=== PATIENT | male | born 1950 | race Caucasian/White ===

== ENCOUNTER 2021-11-12 08:22 | Emergency (ER) | payer MEDICARE, MEDICAID, SELFPAY ==
--- NOTE | 2021-11-12 08:27 | XR_ITS ---
WS: [id number] XR chest 1V portable [id number] REASON FOR EXAM: cough, body aches FINDINGS: The heart and the mediastinum are within normal limits. Calcified granulomatous changes in both hemithoraces. Compared to a previous examination of 10/08/2018 there are linear and reticular lung opacities in the medial right lower lung field. Small focus of linear atelectasis in the right costophrenic angle. Blunting of both costophrenic angles which was present on the previous examination. Moderate degenerative spondylosis in the mid and lower thoracic spine. 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 XR/XR chest 1V portable [id number] IMPRESSION: Minimal opacities in the right lower lung of unknown chronicity. Early subacute pneumonitis not excluded. Follow-up chest x-ray in several days recommended.
[2021-11-12 09:22] VITALS: BP 91/58; PULSE 108; RESP 18; TEMP 36.4; O2SAT 87; BMI 25.7
--- NOTE | 2021-11-12 09:44 | ED_ITS ---
Documented by User: ELVA Shi 11/12/21 12:09 HPI - COVID General: Chief Complaint: COVID symptoms Stated Complaint: Cough and muscle aching, not eaten in couple days Time Seen by Provider: 11/12/21 09:31 Source: patient Mode of arrival: ambulatory Limitations: no limitations Triage information: Has fever, cough or shortness of breath . No known COVID + exposure last 14 days History of Present Illness: Patient is a 71-year-old male with a history of COPD chronically on 4L O2 here for concerns of cough, shortness of breath, difficulty breathing, and body aches. He states symptoms first began approximately 3 to 4 days ago-he believes he ran a fever at that time but has been afebrile since. Patient states he has not had to increase his oxygen. He states he normally runs roughly 92% on his 4L. No known sick contacts but patient does live in an apartment complex. He states he had a few episodes of diarrhea couple of days ago but none since. No vomiting or abdominal pain. No rash. No lower extremity redness or swelling. MD complaint: has COVID symptoms Prior covid testing: no COVID 19 common symptoms: positive fever(s) (a few days ago-none since), cough, productive cough, dyspnea, fatigue, body aches and diarrhea; negative chills, headache(s), throat pain, nasal congestion, nausea or vomiting COVID 19 other sytmptoms: negative chest pain Onset (ago): day(s) Severity: moderate Pertinent comorbid conditions: COPD/respiratory disease and on home bipap/cpap COVID Results: SARS-CoV-2 Antigen (Rapid) Negative (Negative) 11/12/21 10:55 11/12/21 SARS-CoV-2 RNA (RT-PCR) Pending 11/12/21 12:15 11/12/21 Review of Systems Const: Reports: fever(s) (a few days ago-none since), body aches, change in appetite and fatigue; Denies: chills or malaise ENMT: Denies: throat pain, odynophagia, nasal discharge or nasal congestion Card: Reports: dyspnea on exertion; Denies: chest pain, palpitations, irregular heart rhythm, edema, swelling of feet/ankles, lightheadedness, syncope or pre-syncope Resp: Reports: dyspnea, productive cough and chest congestion; Denies: wheezing or hemoptysis GI: Reports: diarrhea; Denies: abdominal pain, nausea, vomiting, hematochezia or melena Musc: Denies: neck pain, back pain, extremity pain or joint pain Skin/Breast: Denies: rash Neuro: Denies: headache(s), numbness in extremities, weakness in extremities, sensory changes or dizziness Physical Exam Const: COMMON NORMALS: no acute distress, patient oriented x3, no limitations and alert GENERAL APPEARANCE: cooperative ORIENTATION/CONSCIOUSNESS: Yes awake, Yes oriented to person, Yes oriented to place and Yes oriented to time HENMT: COMMON NORMALS: normocephalic and atraumatic HEAD & SCALP: normocephalic and atraumatic Chest: COMMONS NORMALS: normal inspection of the chest and normal palpation of entire chest wall Resp: COMMON NORMALS: normal respiratory effort and clear to auscultation bilaterally EFFORT & INSPECTION: Yes able to speak in complete sentences AUSCULTATION: clear to auscultation bilaterally OTHER: pt sats anywhere from 88-92% on his normal 4L; I increased this to 4.5L and he is currently satting at 94% Cardio: COMMON NORMALS: regular rhythm RATE: tachycardic RHYTHM: regular rhythm GI: COMMON NORMALS: Normal to inspection, nondistended, normoactive bowel sounds present, Soft to palpation, non-tender, No hepatosplenomegaly present and no masses PALPATION: Yes Soft to palpation and Yes No hepatosplenomegaly present Extremity: COMMON NORMALS: normal to inspection, capillary refill normal, no clubbing, cyanosis or edema, no calf tenderness and no pedal edema GENERAL: Yes normal exam except as noted Neuro: TOMÁS COMA SCALE: document GCS findings [place] coma scale eye opening: Spontaneous Tomás coma scale verbal response: Orientated Tomás coma scale motor response: Obey commands [place] coma scale total score: 15 COMMON NORMALS: patient oriented x3, moves all extremities, no focal motor deficits, no sensory deficits noted and gait normal SENSORIUM/ORIENTATION: Yes alert, Yes oriented to person, Yes oriented to place and Yes oriented to time Skin: COMMON NORMALS: no rashes or lesions noted GENERAL SKIN EXAM: no rashes or lesions noted Course Vital Signs: Vital signs: Vital Signs Temperature 97.9 F 11/12/21 10:31 Pulse Rate 104 H 11/12/21 12:35 Respiratory Rate 18 11/12/21 12:35 Blood Pressure 116/78 11/12/21 12:35 Pulse Oximetry 94 11/12/21 12:35 MDM - COVID Medical Decision Making Patient clinically appears in no acute distress. On re-evaluation he is satting at 96% on 3.5L O2. Patient has a minor white count at 12.2. CRP mildly elevated at 35.7. He has a normal procalcitonin. Rapid COVID negative. [facility] PCR obtained and pending. CXR does show some RLL opacities. Will go ahead and place on steroids/antibiotics. He was instructed to contact PCP BEVERLEY if his PCR COVID comes back positive as patient would qualify for treatment as he is at risk for severe progression. Patient verbalized understanding. Lab Data : 11/12/21 10:15 11/12/21 10:15 Radiology Impressions Chest X-Ray 11/12/21 08:27 IMPRESSION: Minimal opacities in the right lower lung of unknown chronicity. Early subacute pneumonitis not excluded. Follow-up chest x-ray in several days recommended. Laboratory Results WBC 12.2 10^3/uL (4.0-10.0) H 11/12/21 10:15 RBC 4.31 10^6/uL (4.1-5.3) 11/12/21 10:15 Hgb 13.4 g/dL (11.7-16.6) 11/12/21 10:15 Hct 40.3 % (42.0-52.0) L 11/12/21 10:15 MCV 93.5 fl (80-94) 11/12/21 10:15 MCH 31.1 pg (28.0-34.0) 11/12/21 10:15 MCHC 33.3 g/dL (30.0-36.0) 11/12/21 10:15 RDW 11.7 % (12.1-15.1) L 11/12/21 10:15 Plt Count 424 10^3/cmm (130-400) H 11/12/21 10:15 MPV 10.6 fL (7.4-10.4) H 11/12/21 10:15 Neut % (Auto) 78.4 % 11/12/21 10:15 Lymph % (Auto) 9.5 % 11/12/21 10:15 [place] % (Auto) 9.5 % 11/12/21 10:15 Eos % (Auto) 1.6 % 11/12/21 10:15 Baso % (Auto) 0.3 % 11/12/21 10:15 Neut # (Auto) 9.55 10^3/uL (1.8-7.7) H 11/12/21 10:15 Lymph # (Auto) 1.2 10^3/uL (0.8-4.8) 11/12/21 10:15 [place] # (Auto) 1.2 10^3/uL (0.2-0.9) H 11/12/21 10:15 Eos # (Auto) 0.2 10^3/uL (0.0-0.8) 11/12/21 10:15 Baso # (Auto) 0.0 10^3/uL (0.0-0.1) 11/12/21 10:15 Nucleated RBC % (auto) 0 % 11/12/21 10:15 Nucleated RBCs # 0.0 /100WBC 11/12/21 10:15 Sodium 133 mmol/L (136-145) L 11/12/21 10:15 Potassium 4.7 mmol/L (3.5-5.1) 11/12/21 10:15 Chloride 96 mmol/L (98-107) L 11/12/21 10:15 Carbon Dioxide 24 mmol/L (22-29) 11/12/21 10:15 Anion Gap 17.7 (5-19) 11/12/21 10:15 BUN 24 mg/dL (8-23) H 11/12/21 10:15 Creatinine 1.4 mg/dL (0.7-1.2) H 11/12/21 10:15 GFR Calculation Not Reportable 11/12/21 10:15 Glucose 97 mg/dL (65-115) 11/12/21 10:15 Calculated Osmolality 280 mOsm/kg (285-295) L 11/12/21 10:15 Lactic Acid 1.1 mmol/L (0.5-2.2) 11/12/21 10:15 Calcium 9.0 mg/dL (8.5-10.5) 11/12/21 10:15 Total Bilirubin 0.9 mg/dL (0.15-1.2) 11/12/21 10:15 AST 33 U/L (0-40) 11/12/21 10:15 ALT 34 U/L (0-41) 11/12/21 10:15 Alkaline Phosphatase 145 IU/L (40-130) H 11/12/21 10:15 C-Reactive Protein 35.7 mg/L (0.0-4.9) H 11/12/21 10:15 Total Protein 7.0 g/dL (6.6-8.7) 11/12/21 10:15 Albumin 3.8 g/dL (3.5-5.2) 11/12/21 10:15 Globulin 3.2 g/dL (1.3-4.6) 11/12/21 10:15 Procalcitonin 0.04 ng/mL (0-0.5) 11/12/21 10:15 SARS-CoV-2 Ag (Rapid) Negative (Negative) 11/12/21 10:55 SARS-CoV-2 Antigen (Rapid) Negative (Negative) 11/12/21 10:55 11/12/21 SARS-CoV-2 RNA (RT-PCR) Pending 11/12/21 12:15 11/12/21 Discharge Plan Discharge Patient Disposition: Home Clinical Impression: RLL pneumonia Qualifiers: Pneumonia type: due to unspecified organism Qualified Code(s): J18.9 - Pneumonia, unspecified organism Condition: Stable Prescriptions: New azithromycin 250 mg tablet See Rx Instructions .ROUTE .COMPLEX Qty: 6 0RF Rx Instructions: take 500 mg today (day 1), then 250 mg for 4 days (days 2-5) dexamethasone 6 mg tablet 6 mg PO DAILY Qty: 6 0RF Augmentin 875-125 mg tablet 1 tab PO Q12H 7 Days Qty: 14 0RF Discharge Orders: Discharge ED (Routine); Ordered 11/12/21 Ordered By: Dasha Virk Patient Instructions: Pneumonia (ED) Activity Restrictions/Additional Instructions: As we discussed if your send out COVID test comes back positive you need to contact primary care immediately to set up outpatient treatment for this as you would be at higher risk for severe progression of disease. You need to return to the ED immediately for worsening shortness of breath, difficulty breathing, chest pain, fevers, or any other concerns you may have. I hope you begin to feel better soon. Coding Level of Care Code ED Jacquard Loom Card Changer for Chg Fwd Exam Comprehensive Documented by User: James Mercado DO 11/12/21 15:04 HPI - COVID General: Chief Complaint: COVID symptoms Stated Complaint: Cough and muscle aching, not eaten in couple days Time Seen by Provider: 11/12/21 09:31 COVID Results: SARS-CoV-2 Antigen (Rapid) Negative (Negative) 11/12/21 10:55 11/12/21 SARS-CoV-2 RNA (RT-PCR) Pending 11/12/21 12:15 11/12/21 Physical Exam Neuro: TOMÁS COMA SCALE: document GCS findings [place] coma scale total score: 15 Course Vital Signs: Vital signs: Vital Signs Temperature 97.9 F 11/12/21 10:31 Pulse Rate 104 H 11/12/21 12:35 Respiratory Rate 18 11/12/21 12:35 Blood Pressure 116/78 11/12/21 12:35 Pulse Oximetry 94 11/12/21 12:35 MDM - COVID Medical Decision Making Patient clinically appears in no acute distress. On re-evaluation he is satting at 96% on 3.5L O2. Patient has a minor white count at 12.2. CRP mildly elevated at 35.7. He has a normal procalcitonin. Rapid COVID negative. [facility] PCR obtained and pending. CXR does show some RLL opacities. Will go ahead and place on steroids/antibiotics. He was instructed to contact PCP BEVERLEY if his PCR COVID comes back positive as patient would qualify for treatment as he is at risk for severe progression. Patient verbalized understanding. Chart reviewed and patient discussed with midlevel. Agree with assessment and plan. Medical Records I reviewed the patient's medical records. Lab Data I reviewed the patient's lab results. : 11/12/21 10:15 11/12/21 10:15 Radiology Impressions Chest X-Ray 11/12/21 08:27 IMPRESSION: Minimal opacities in the right lower lung of unknown chronicity. Early subacute pneumonitis not excluded. Follow-up chest x-ray in several days recommended. Laboratory Results WBC 12.2 10^3/uL (4.0-10.0) H 11/12/21 10:15 RBC 4.31 10^6/uL (4.1-5.3) 11/12/21 10:15 Hgb 13.4 g/dL (11.7-16.6) 11/12/21 10:15 Hct 40.3 % (42.0-52.0) L 11/12/21 10:15 MCV 93.5 fl (80-94) 11/12/21 10:15 MCH 31.1 pg (28.0-34.0) 11/12/21 10:15 MCHC 33.3 g/dL (30.0-36.0) 11/12/21 10:15 RDW 11.7 % (12.1-15.1) L 11/12/21 10:15 Plt Count 424 10^3/cmm (130-400) H 11/12/21 10:15 MPV 10.6 fL (7.4-10.4) H 11/12/21 10:15 Neut % (Auto) 78.4 % 11/12/21 10:15 Lymph % (Auto) 9.5 % 11/12/21 10:15 [place] % (Auto) 9.5 % 11/12/21 10:15 Eos % (Auto) 1.6 % 11/12/21 10:15 Baso % (Auto) 0.3 % 11/12/21 10:15 Neut # (Auto) 9.55 10^3/uL (1.8-7.7) H 11/12/21 10:15 Lymph # (Auto) 1.2 10^3/uL (0.8-4.8) 11/12/21 10:15 [place] # (Auto) 1.2 10^3/uL (0.2-0.9) H 11/12/21 10:15 Eos # (Auto) 0.2 10^3/uL (0.0-0.8) 11/12/21 10:15 Baso # (Auto) 0.0 10^3/uL (0.0-0.1) 11/12/21 10:15 Nucleated RBC % (auto) 0 % 11/12/21 10:15 Nucleated RBCs # 0.0 /100WBC 11/12/21 10:15 Sodium 133 mmol/L (136-145) L 11/12/21 10:15 Potassium 4.7 mmol/L (3.5-5.1) 11/12/21 10:15 Chloride 96 mmol/L (98-107) L 11/12/21 10:15 Carbon Dioxide 24 mmol/L (22-29) 11/12/21 10:15 Anion Gap 17.7 (5-19) 11/12/21 10:15 BUN 24 mg/dL (8-23) H 11/12/21 10:15 Creatinine 1.4 mg/dL (0.7-1.2) H 11/12/21 10:15 GFR Calculation Not Reportable 11/12/21 10:15 Glucose 97 mg/dL (65-115) 11/12/21 10:15 Calculated Osmolality 280 mOsm/kg (285-295) L 11/12/21 10:15 Lactic Acid 1.1 mmol/L (0.5-2.2) 11/12/21 10:15 Calcium 9.0 mg/dL (8.5-10.5) 11/12/21 10:15 Total Bilirubin 0.9 mg/dL (0.15-1.2) 11/12/21 10:15 AST 33 U/L (0-40) 11/12/21 10:15 ALT 34 U/L (0-41) 11/12/21 10:15 Alkaline Phosphatase 145 IU/L (40-130) H 11/12/21 10:15 C-Reactive Protein 35.7 mg/L (0.0-4.9) H 11/12/21 10:15 Total Protein 7.0 g/dL (6.6-8.7) 11/12/21 10:15 Albumin 3.8 g/dL (3.5-5.2) 11/12/21 10:15 Globulin 3.2 g/dL (1.3-4.6) 11/12/21 10:15 Procalcitonin 0.04 ng/mL (0-0.5) 11/12/21 10:15 SARS-CoV-2 Ag (Rapid) Negative (Negative) 11/12/21 10:55 SARS-CoV-2 Antigen (Rapid) Negative (Negative) 11/12/21 10:55 11/12/21 SARS-CoV-2 RNA (RT-PCR) Pending 11/12/21 12:15 11/12/21 Discharge Plan Discharge Patient Disposition: Home Clinical Impression: RLL pneumonia Qualifiers: Pneumonia type: due to unspecified organism Qualified Code(s): J18.9 - Pneumonia, unspecified organism Condition: Stable Prescriptions: New azithromycin 250 mg tablet See Rx Instructions .ROUTE .COMPLEX Qty: 6 0RF Rx Instructions: take 500 mg today (day 1), then 250 mg for 4 days (days 2-5) dexamethasone 6 mg tablet 6 mg PO DAILY Qty: 6 0RF Augmentin 875-125 mg tablet 1 tab PO Q12H 7 Days Qty: 14 0RF Discharge Orders: Discharge ED (Routine); Ordered 11/12/21 Ordered By: Dasha Virk Patient Instructions: Pneumonia (ED) Activity Restrictions/Additional Instructions: As we discussed if your send out COVID test comes back positive you need to contact primary care immediately to set up outpatient treatment for this as you would be at higher risk for severe progression of disease. You need to return to the ED immediately for worsening shortness of breath, difficulty breathing, chest pain, fevers, or any other concerns you may have. I hope you begin to f eel better soon. Coding Level of Care Code ED Jacquard Loom Card Changer for Alexa Atwood Exam Comprehensive
[2021-11-12 10:21] LABS: Basophils % 0.3 %; Eosinophils # 0.2 10^3/uL (0.0-0.8); Eosinophils % 1.6 %; Hematocrit 40.3 % (42.0-52.0); Hemoglobin 13.4 g/dL (11.7-16.6); Lymphocytes # 1.2 10^3/uL (0.8-4.8); Lymphocytes % 9.5 %; Mean Corpuscular HGB Conc 33.3 g/dL (30.0-36.0); Mean Corpuscular Hemoglobin 31.1 pg (28.0-34.0); Mean Corpuscular Volume 93.5 fl (80-94); Mean Platelet Volume 10.6 fL (7.4-10.4); Monocytes # 1.2 10^3/uL (0.2-0.9); Monocytes % 9.5 %; Neutrophils # 9.55 10^3/uL (1.8-7.7); Neutrophils % 78.4 %; Nucleated Red Blood Cells % 0 %; Platelet Count 424 10^3/cmm (130-400); Red Blood Count 4.31 10^6/uL (4.1-5.3); Red Cell Distribution Width 11.7 % (12.1-15.1); White Blood Count 12.2 10^3/uL (4.0-10.0)
[2021-11-12 10:31] VITALS: BP 104/72; PULSE 99; RESP 18; TEMP 36.6; O2SAT 91; O2SAT 95
[2021-11-12 10:54] LABS: Alanine Aminotransferase 34 U/L (0-41); Albumin Level 3.8 g/dL (3.5-5.2); Alkaline Phosphatase 145 IU/L (40-130); Anion Gap 17.7 (5-19); Aspartate Amino Transferase 33 U/L (0-40); Blood Urea Nitrogen 24 mg/dL (8-23); Carbon Dioxide 24 mmol/L (22-29); Chloride 96 mmol/L (98-107); Globulin 3.2 g/dL (1.3-4.6); Glucose 97 mg/dL (65-115); Osmolality Calculated 280 mOsm/kg (285-295); Potassium 4.7 mmol/L (3.5-5.1); Sodium 133 mmol/L (136-145); Total Bilirubin 0.9 mg/dL (0.15-1.2)
[2021-11-12 11:01] LABS: Procalcitonin 0.04 ng/mL (0-0.5)
[2021-11-12 11:06] LABS: Lactic Sepsis W/Reflex 1.1 mmol/L (0.5-2.2)
[2021-11-12 11:07] LABS: C Reactive Protein 35.7 mg/L (0.0-4.9)
[2021-11-12 11:40] LABS: SARS Covid-2 Antigen Negative (Negative)
[2021-11-12 12:35] VITALS: BP 116/78; PULSE 104; RESP 18; O2SAT 94
[2021-11-12 15:05] LABS: Adenovirus Not Detected (NOT DETECT); Chlamydia Pneumoniae Not Detected (NOT DETECT); Coronavirus 229E,HKU1,NL63,OC4 Not Detected (NOT DETECT); Human Metapneumovirus Not Detected (NOT DETECT); Human Rhinovirus/Enterovirus Not Detected (NOT DETECT); Influenza A Not Detected (NOT DETECT); Influenza A H1 Not Detected (NOT DETECT); Influenza A H1-2009 Not Detected (NOT DETECT); Influenza A H3 Not Detected (NOT DETECT); Influenza B Not Detected (NOT DETECT); Mycoplasma Pneumoniae Not Detected (NOT DETECT); Parainfluenza Virus Type 1 Not Detected (NOT DETECT); Parainfluenza Virus Type 2 Not Detected (NOT DETECT); Parainfluenza Virus Type 3 Not Detected (NOT DETECT); Parainfluenza Virus Type 4 Not Detected (NOT DETECT); Respiratory Syncytial Virus A Not Detected (NOT DETECT); Respiratory Syncytial Virus B Not Detected (NOT DETECT); SARS-COV-2 Detected (NOT DETECT)
== END 2021-11-12 12:41 | disposition home or self-care (01) ==
PROVIDERS: Emergency Provider Physician Assistant
DX: J18.9 Pneumonia, unspecified organism (principal); U07.1 COVID-19
CPT/HCPCS: 36415; 71045; 80053; 83605; 84145; 85025; 86140; 87426; 87635; 99283

== ENCOUNTER 2024-08-22 10:04 | Outpatient (CLI) | payer MEDICARE, MEDICAID, SELFPAY ==
--- NOTE | 2024-08-22 10:10 | XRR_ITS ---
PROCEDURE INFORMATION: Exam: XR Chest Exam date and time: 08/22/2024 10:31 AM Age: 74 years old Clinical indication: Condition or disease; Lung condition and disease; Copd; Complications not specified; Additional info: Leukocytosis/copd TECHNIQUE: Imaging protocol: Radiologic exam of the chest. Views: 2 views. Total images: 5 COMPARISON: CR XR chest 1V portable [id number] 11/12/2021 8:35 AM FINDINGS: Lungs: Masslike opacity in right lung apex measuring [address] recommended to further evaluate. Trace bibasilar atelectasis or scar. Pulmonary hyperinflation, suggesting COPD. Pleural spaces: Unremarkable. No pleural effusion. No pneumothorax. Heart/Mediastinum: Unremarkable. No cardiomegaly. Bones/joints: Unremarkable. XR/XR chest 2V* [id number] IMPRESSION: 1. Masslike opacity in right lung apex measuring [address] recommended to further evaluate. 2. Trace bibasilar atelectasis or scar. 3. Pulmonary hyperinflation, suggesting COPD.
== END 2024-08-22 10:05 | disposition home or self-care (01) ==
LOC: RAD 10:07
PROVIDERS: Visit Provider Nurse Practitioner Family
DX: J44.9 Chronic obstructive pulmonary disease, unspecified (principal); R91.8 Other nonspecific abnormal finding of lung field; D72.829 Elevated white blood cell count, unspecified
CPT/HCPCS: 71046

== ENCOUNTER 2025-04-26 09:32 | Inpatient (IN) | payer MEDICARE, MEDICAID, SELFPAY ==
[2025-04-26] VITALS (15 sets, daily range): BP systolic 92–138; BP diastolic 55–79; PULSE 69–140; RESP 16–98; TEMP 36.3–37.1; O2SAT 96–100; BMI 24.7; BMI 21.2
--- OUTSIDE RECORDS SUMMARY | 2025-04-26 09:44 | XMS_ITS | Encounter Summary ---
Author Organization [facility] Address [address] [place] [address] Care Team Providers Care Table Machine Operator Name Role Phone Gasper Galvez MD Primary Care Provider [phone] Encounter Details Date Type Department Care Team (Late st Contact Info) Description 12/22/2001 Outpatient Historical [facility] Gasper Galvez MD [address] [place] [address] FX FEMUR SHAFT-CLOSED (CMS/HCC) (Primary Dx); INTERTROCHANTERIC FX-CLOSE (CMS/HCC) Social History Tobacco Use Types Packs/Day Years Used Date Smoking Tobacco: Never Assessed Sex and Gender Information Value Date Recorded Sex Assigned at Not on file 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
--- OUTSIDE RECORDS SUMMARY | 2025-04-26 09:44 | XMS_ITS | Encounter Summary ---
Author Organization [facility] Address [address] [place] [address] Care Team Providers Care Dog Hair Clipper Name Role Phone Gasper Galvez MD Primary Care Provider Encounter Details Date Type Department Care Team (Latest Contact Info) Description 03/30/2002 Outpatient Historical [facility] Gasper Galvez MD [address] [place] [address] INTERTROCHANTERIC FX-CLOSE (CMS/[facility]) (Primary Dx) Social History Tobacco Use Types Packs/Day Years Used Date Smoking Tobacco: Never Assessed Sex and Gender Information Value Date Recorded Sex Assigned at Not on file 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
--- OUTSIDE RECORDS SUMMARY | 2025-04-26 09:44 | XMS_ITS | Clinical Summary ---
Author Organization [facility] Address [address] [place] [address] Care Team Providers Care Eye Technician Name Role Phone Gasper Galvez MD Primary Care Provider Allergies No known active allergies Medications omeprazole (PRILOSEC) 20 mg Capsule, Delayed Release(E.C.) 2 times daily . 5 Active multivitamin (DAILY-KYLE) tablet Take 1 Tablet by mouth daily. Active naproxen sodium (ALEVE) 220 mg Tablet Take 220 mg by mouth 1 time daily as needed for Pain, Moderate. Active timolol (TIMOPTIC) 0.5 % solution Administer 1 Drop in both eyes 2 times daily To the operative/affec fenrie eye.. 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 09/24/2015 Nuclear sclerotic cataract of right eye 09/24/20 15 Immunizations Immunization Administration Dates Next Due Influenza Seasonal Unspecified Formulation IM Family History Medical History Relation Name Comments Diabetes Mother Relation Name Status Comments Mother Social History Tobacco Use Types Packs/Day Years Used Date Smoking Tobacco: Every Day Cigarettes Smokeless Tobacco: Never Tobacco Cessation:Ready to Q uit: No Alcohol Use Standard Drinks/Week Comments No 0 (1 standard drink = 0.6 oz pur e alcohol) Sex and Gender Information Value Date Recorded Sex Assigned at Not on file Legal Sex Male 6:04 AM REGULATORY SUBMISSIONS SPECIALIST Gender Identity Not on file Sexual Orientation Not on file Last Filed Vital Signs Vital Sign Reading Time Taken Comments Blood Pressure 113/79 11/25/2017 10:03 AM REGULATORY SUBMISSIONS SPECIALIST Pulse 98 11/25/2017 10:03 AM REGULATORY SUBMISSIONS SPECIALIST Temperature 37.1 C (98.7 F) 12/11/2015 12:37 PM REGULATORY SUBMISSIONS SPECIALIST Respiratory Rate 18 12/11/2015 12:37 PM REGULATORY SUBMISSIONS SPECIALIST Oxygen Saturation 94% 12/11/2015 12:37 PM REGULATORY SUBMISSIONS SPECIALIST Inhaled Oxygen Concentration - - Weight 85.7 kg (189 lb) 11/25/2017 10:03 AM REGULATORY SUBMISSIONS SPECIALIST Height 182.9 cm (6') 11/25/2017 10:03 AM REGULATORY SUBMISSIONS SPECIALIST Body Mass Index 25.63 11/25/2017 10:03 AM REGULATORY SUBMISSIONS SPECIALIST Plan of Treatment Health Maintenance Due Date Last Done Comments DTAP/TDAP/TD VACCINES (1 - Tdap) 1967 PNEUMOCOCCAL VACCINE 50+ YEARS (1 of 2 - PCV) 04/20/19 67 ZOSTER VACCINE (1 of 2) 1998 RSV VACCINE (60+ or ) (1 - 1-dose 75+ series) 2023 INFLUENZA VACCINE (#1) 2025 08/25/2015 Medical Devices Implanted Type Area Payroll Associate Device Identifier Shelf Expiration Date Model / Serial / Lot Oil Slc 8.5ml [id number] - [id number] Implanted:Qty: 1 on 12/11/2015 by Silas Fonseca MD at [facility] Right: Eye [facility] 08/11/2017 [id number] / [id number] / [id number] Insurance MEDICARE PART A AND B [place] Advance Directives For more information, please contact: [phone] * Full Code (Latest Code Status on File) Date Activated Date Inactivated Comments 12/11/2015 10:30 AM 12/11/2015 3:07 PM * Full Code Date Activated Date Inactivated Comments 12/11/2015 10:04 AM 12/11/2015 10:30 AM * Full Code Date Activated Date Inactivated Comments 09/25/2015 10:45 AM 09/25/2015 6:28 PM Care Teams Eye Technician Relationship Specialty Start Date End Date Gasper Galvez MD [address] [place] [address] PCP - General 12/11/15
--- OUTSIDE RECORDS SUMMARY | 2025-04-26 09:44 | XMS_ITS | Encounter Summary ---
Author Organization [facility] Address [address] [place] [address] Care Team Providers Care Endless Belt Finisher Name Role Phone Gasper Galvez MD Primary Care Provider [phone] Encounter Details Date Type Department Care Team (Latest Contact Info) Description 05/25/2002 Outpatient Historical [facility] Gasper Galvez MD [address] [place] [address] INTERTROCHANTERIC FX-CLOSE (CMS/[facility]) (Primary Dx) Social History Tobacco Use Types Packs/Day Years Used Date Smoking Tobacco: Never Assessed Sex and Gender Information Value Date Recorded Sex Assigned at Not on file Legal Sex Male 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
--- OUTSIDE RECORDS SUMMARY | 2025-04-26 09:44 | XMS_ITS | Encounter Summary ---
Author Organization [facility] Address [address] [place] [address] Care Team Providers Care Threading Machine Setter Name Role Phone Gasper Galvez MD Primary Care Provider [phone] Encounter Details Date Type Department Care Team (Late st Contact Info) Description 07/05/2002 Outpatient Historical [facility] Gasper Galvez MD [address] [place] [address] MALF INT ORTHPED DEV/GRF (Primary Dx); INTERTROCHANTERIC FX-CLOSE (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) Closed fracture of intertrochanteric section of femur documented in this encounter Care Teams Threading Machine Setter Relationship Specialty Start Date End Date Gasper Galvez MD [address] [place] [address] PCP - General 12/11/15 documented as of this encounter
--- OUTSIDE RECORDS SUMMARY | 2025-04-26 09:44 | XMS_ITS | Encounter Summary ---
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
--- OUTSIDE RECORDS SUMMARY | 2025-04-26 09:44 | XMS_ITS | Encounter Summary ---
Author Organization [facility] Address [address] [place] [address] Care Team Providers Care Rigging And Controls Aircraft Mechanic Name Role Phone Gasper Galvez MD Primary Care Provider [phone] Encounter Details Date Type Department Care Team (Late st Contact Info) Description 03/02/2002 Outpatient Historical [facility] Gasper Galvez MD [address] [place] [address] FX FEMUR SHAFT-CLOSED (CMS/HCC) (Primary Dx); INTERTROCHANTERIC FX-CLOSE (CMS/HCC) Social History Tobacco Use Types Packs/Day Years Used Date Smoking Tobacco: Never Assessed Sex and Gender Information Value Date Recorded Sex Assigned at Not on file Legal Sex Male 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
--- OUTSIDE RECORDS SUMMARY | 2025-04-26 09:44 | XMS_ITS | Encounter Summary ---
Author Organization [facility] Address [address] [place] [address] Care Team Providers Care Staff Auditor Name Role Phone Gasper Galvez MD Primary Care Provider Encounter Details Date Type Department Care Team (Late st Contact Info) Description 08/30/2002 Outpatient Historical [facility] Gasper Galvez MD [address] [place] [address] JOINT PAIN-L/LEG (Primary Dx); INTERTROCHANTERIC FX-CLOSE ([facility]) Social History Tobacco Use Types Packs/Day Years Used Date Smoking Tobacco: Never Assessed Sex and Gender Information Value Date Recorded Sex Assigned at Not on file Legal Sex Male 6:04 AM MOVE COORDINATOR Gender Identity Not on file Sexual Orientation Not on file documented as of this encounter Plan of Treatment Not on file documented as of this encounter Visit Diagnoses Diagnosis Pain in joint, lower leg- Primary Closed fracture of intertrochanteric section of femur (CMS/HCC) Closed fracture of intertrochanteric section of femur documented in this encounter Care Teams Staff Auditor Relationship Specialty Start Date End Date Gasper Galvez MD [address] [place] [phone] PCP - General 12/11/15 documented as of this encounter
--- OUTSIDE RECORDS SUMMARY | 2025-04-26 09:44 | XMS_ITS | Encounter Summary ---
Author Organization [facility] Address [address] [place] [address] Care Team Providers Care Geophysical Prospecting Permit Agent Name Role Phone Gasper Galvez MD Primary Care Provider [phone] Encounter Details Date Type Department Care Team (Latest Contact Info) Description 02/02/2002 Outpatient Historical [facility] Gasper Galvez MD [address] [place] [address] INTERTROCHANTERIC FX-CLOSE (CMS/HCC) (Primary Dx); FX FEMUR SHAFT-CLOSED (CMS/HCC) Social History Tobacco Use Types Packs/Day Years Used Date Smoking Tobacco: Never Assessed Sex and Gender Information Value Date Recorded Sex Assigned at Not on file Legal Sex Male 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 Gender Identity Not on file Sexual Orientation Not on file documented as of this encounter Plan of Treatment Not on file documented as of this encounter Visit Diagnoses Diagnosis Closed fracture of intertrochanteric section of femur (CMS/HCC)- Primary Closed fracture of intertrochanteric section of femur Closed fracture of shaft of femur (CMS/HCC) Closed fracture of shaft of femur documented in this encounter Care Teams Geophysical Prospecting Permit Agent Relationship Specialty Start Date End Date Gasper Galvez MD [address] [place] [address] PCP - General 12/11/15 documented as of this encounter
--- OUTSIDE RECORDS SUMMARY | 2025-04-26 09:44 | XMS_ITS | Encounter Summary ---
Author Organization [facility] Address [address] [facility] Attn: [place] [address] Care Team Providers Care Hospice Registered Nurse Name Role Phone Gasper Galvez MD Primary Care Provider [phone] Encounter Details Date Type Department Care Team (Late st Contact Info) Description 11/27/2001 Inpatient Historical Han Rivera S, DO [address] [place] [address] Social History Tobacco Use Types Packs/Day Years Used Date Smoking Tobacco: Never Assessed Sex and Gender Information Value Date Recorded Sex Assigned at Not on file Legal Sex Male 6:04 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
--- NOTE | 2025-04-26 09:59 | ECG_ITS ---
[facility] Test Date: 2025-04-26 Pat Name: Miguel Castillo Department: Room: Gender: Male Compound Specialist: : [id number] Requested By: Cony Posadas Order Number: [id number] Dutch MD: Waldo Mendez M.D. Measurements Intervals [place] Rate: 130 P: 254 ME: 157 QRS: -77 QRSD: 122 T: 2 QT: 304 QTc: 447 Interpretive Statements ECTOPIC ATRIAL TACHYCARDIA LEFT AXIS DEVIATION [QRS AXIS < -30] RIGHT BUNDLE BRANCH BLOCK [120+ ms QRS DURATION, UPRIGHT V1, 40+ ms S IN I/aVL/V4/V5/V6] Compared to ECG 10/08/2018 11:51:41 Right bundle-branch block now present Sinus rhythm no longer present Incomplete right bundle-branch block no longer present Electronically Signed On 04-26-2025 16:44:07 CDT by Waldo Mendez M.D. [email or web address] [id number]
--- NOTE | 2025-04-26 10:00 | XR_ITS ---
WS: [id number] XR chest 1V portable [id number] REASON FOR EXAM: Weakness FINDINGS: Compared to the most previous examination of 08/22/2024, the mass in the right upper lung has increased from 2.6 to 3.8 cm in diameter. The chest is otherwise unchanged compared to the previous examination. Moderate tortuosity and ectasia of the thoracic aorta with the heart at the upper limits of normal in size. Lung hyperexpansion compatible with obstructive lung disease. No definite acute abnormality. 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 No definite acute abnormality.
--- NOTE | 2025-04-26 10:01 | ED_ITS ---
HPI - Weakness 2 General: Chief complaint: Weakness Stated complaint: weakness Time Seen by Provider: 04/26/25 09:47 History of Present Illness: 75-year-old man with a history of hypert ension, hyperlipidemia and COPD who presents emergency room by ambulance with worsening weakness. He says he has become so weak he can barely get up even using his walker he does not feel stable. He denies any fever or cough. No focal motor deficits. He is able to lift both legs off the bed without any difficulty. No facial droop. Related Data Home Medications ?Medication ?Instructions ?Recorded ?Confirmed acetaminophen 325 mg tablet 650 mg PO QID PRN Fever Or Pain 04/26/25 04/26/25 (Tylenol) amlodipine 10 mg tablet 10 mg PO DAILY 04/26/2504/11 clonidine HCl 0.1 mg tablet 0.1 mg PO DAILY 04/26/25 0 04/26/25 dorzolamide 2 % eye drops 1 drp ophthalmic (eye) BID 0 04/26/25 04/26/25 fluticasone fur. 100 mcg-umeclid 1 ea inhalation DAILY 04/26/25 04/26/25 62.5 mcg-vilant 25 mcg inhalat.powder (Trelegy Ellipta) furosemide 20 mg tablet 20 mg PO DAILY 04/26/2504/11 lisinopril 20 mg tablet 20 mg PO DAILY 04/26/2504/11 loratadine 10 mg tablet 10 mg PO DAILY PRN allergies 04/26/25 04/26/25 lovastatin 40 mg tablet 40 mg PO DAILY 04/26/2504/11 multivitamin with minerals-folic 1 tab PO DAILY 04/26/25 acid 400 mcg-lycopene 370 mcg tablet (One-A-Day Men's 50 Plus) naproxen sodium 220 mg tablet 220 mg PO Q12H PRN Pain 04/26/25 04/26/25 (Aleve) omeprazole 20 mg capsule,delayed 40 mg PO DAILY 04/26/25 release Allergies Allergy/AdvReac Type Severity Reaction Status Date / Time No Known Allergies Allergy Verified 04/26/25 09:39 Review of Systems 2 Narrative: Constitutional symptoms: Negative except as documented in HPI. Skin symptoms: Negative except as documented in HPI. Eye symptoms: Negative except as documented in HPI. ENMT symptoms: Negative except as documented in HPI. Respiratory symptoms: Negative except as documented in HPI. Cardiovascular symptoms: Negative except as documented in HPI. Gastrointestinal symptoms: Negative except as documented in HPI. Genitourinary symptoms: Negative except as documented in HPI. Musculoskeletal symptoms: Negative except as documented in HPI. Neurologic symptoms: Negative except as documented in HPI. Psychiatric symptoms: Negative except as documented in HPI. Endocrine symptoms: Negative except as documented in HPI. Physical Exam 2 Narrative: EXAM NARRATIVE: General: Alert, no acute distress. Skin: Warm, dry. Head: Normocephalic, atraumatic. Neck: Supple, trachea midline. Eye: Extraocular movements are intact. Ears, nose, mouth and throat: mucosa moist. Cardiovascular: Tachycardic, Normal peripheral perfusion. Does have some lower extremity edema Respiratory: Lungs are clear to auscultation, respirations are non-labored, breath sounds are equal, Symmetrical chest wall expansion. Gastrointestinal: Soft, Nontender, Non distended Musculoskeletal: Normal ROM, no deformity. Neurological: Alert and oriented, No focal neurological deficit observed. Psychiatric: Cooperative, appropriate mood & affect. Course 2 Vital Signs: Vital signs: Vital Signs Temperature 97.7 F 04/26/25 12:40 Pulse Rate 96 04/26/25 12:40 Respiratory Rate 24 H 04/26/25 12:40 Blood Pressure 126/77 04/26/25 12:40 Pulse Oximetry 100 04/26/25 12:40 Oxygen Delivery Me thod Nasal Cannula 04/26/25 12:34 Oxygen Flow Rate 4 04/26/25 12:34 MDM - Weakness Medical Decision Making Medical decision making: Differential diagnosis for patient presenting with generalized weakness including but not limited to and based on the above HPI, review of systems and physical exam: Sepsis. Dehydration. Renal failure. Electrolyte abnormalities. Anemia. Congestive heart failure. Hypotension. Coronary syndrome. Hepatitis. Cirrhosis. Infections such as pneumonia, urinary tract infection, Tick bourne illness, Cellulitis, Viral infections including influenza and Covid-19. Workup: labwork and lab/exam driven imaging ordered to evaluate, rule in and rule out above pathologies. EKG: Time 9:45 AM. Rate 130. Ectopic atrial tachycardia versus atrial fibrillation with rapid ventricular response, No ST-T changes, no ectopy, This was reviewed and interpreted by myself the ER physician at 9:50 AM. AB.5 with an O2 sat of 96% on 4 L nasal cannula Repeat EKG: Time 1203. Rate 105. Atrial fibrillation with rapid ventricular response, No ST-T changes, no ectopy, This was reviewed and interpreted by myself the ER physician at 12:05 Chest x-ray: Increasing size of the right upper lobe lung mass. This was reviewed and interpreted by myself the emergency room physician. I also reviewed the radiology report. CT of the head: Left inferior frontal lobe likely metastatic disease with moderate surrounding edema. This was reviewed and interpreted by myself the emergency room physician. I also reviewed the radiology report. CT of the chest abdomen pelvis with contrast: Large spiculated neoplasm in the right upper lobe. There is also a right upper thoracic intramuscular paraspinal mass. Other findings listed below. This was reviewed and interpreted by myself the emergency room physician. I also reviewed the radiology report. Lab Review: Laboratory results were reviewed and interpreted by myself the emergency room physician. Significant leukocytosis at 27,000 with a left shift. Anemia with a hemoglobin of 7.6. No renal failure. Urinalysis is negative for infection. I reviewed the patient's medical record. Reexamination: Patient had what appears to be a brief seizure. He was mildly postictal afterwards. Once he had recovered we had further discussion as we had already begun the discussion of end-of-life issues and he does want to be DNR. He is stable on his home oxygen. He says he has been on this for 7 or 8 years now. Currently with no altered mental status. He continues to not have any focal motor deficits. Assessment and plan: Lung mass Brain metastasis Tachycardia Sepsis Seizure DO NOT RESUSCITATE CODE STATUS Chronic hypoxemic respiratory failure - 2 L normal saline bolus. This along with blood puts him near full 30 mL/kg for his ideal body weight. -Broad-spectrum antibiotics were administered. Zyvox and meropenem -Sepsis quality measures. -Lactic acid with a reflex was ordered. -Blood cultures were ordered. ?IV Keppra and IV Ativan for a possible seizure. ?IV Decadron for brain edema and tumor. ?Patient stable on 3 and half to 4 L nasal cannula. This is his home oxygen ?Long talk about direction of care. He wants to be DNR for now and wants to go to a custodial -I discussed the patient with the hospitalist on-call who is admitting the patient. - Discussed findings and plan with patient. Answered any questions. - All laboratory values were reviewed and interpreted personally by myself, the ER physician - All imaging was reviewed and interpreted personally by myself, the ER physician. - Evaluation and treatment of this problem were appropriate in the emergency setting Critical Care: -I spent a total of >35 minutes of critical care time managing the patient, independent of any other practitioner. -The time involved in the performance of separately reportable procedures was not counted towards critical care time. 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 No definite acute abnormality. Chest/Abdomen/Pelvis CT 04/26/25 10:40 IMPRESSION: 1. Large spiculated neoplasm in the RIGHT upper lobe described above. 2. RIGHT upper thoracic intramuscular paraspinal mass described above. 3. RIGHT hilar and peribronchial lymphadenopathy. 4. Eccentric nodular thickening of the distal thoracic esophagus. Finding suspicious for neoplasm. This can be followed up with endoscopy. 5. No evidence of metastatic disease in the abdomen or pelvis. 6. Moderate chronic central canal stenosis L3-4 and severe L4-5 due to chronic disc osteophyte complexes facet arthropathy and ligamentum flavum hypertrophy. Head CT 04/26/25 10:40 IMPRESSION: 1. Small increased attenuation intraparenchymal lesion LEFT inferior frontal lobe most compatible with metastatic disease with moderate surrounding edema. Consider MRI without and with gadolinium enhancement in further assessment and to evaluate for additional lesions 2. Sphenoid sinusitis Notified Cony Chance MD at 04/26/2025 11:34 AM. Laboratory Results WBC 27.46 10^3/uL (3.29-11.43) H 04/26/25 09:41 RBC 3.22 10^6/uL (3.85-5.65) L 04/26/25 09:41 Hgb 7.60 g/dL (11.27-16.99) L 04/26/25 09:41 Hct 24.5 % (37-53) L 04/26/25 09:41 MCV 76.1 fl (82-101) L 04/26/25 09:41 MCH 23.6 pg (27-33) L 04/26/25 09:41 MCHC 31.0 g/dL (30-55) 04/26/25 09:41 RDW 17.7 % (12.1-15.1) H 04/26/25 09:41 Plt Count 675 10^3/cmm (157-399) H 04/26/25 09:41 MPV 9.7 fL (7.4-10.4) 04/26/25 09:41 Neut % (Auto) 90.7 % 04/26/25 09:41 Lymph % (Auto) 2.9 % 04/26/25 09:41 [place] % (Auto) 5.0 % 04/26/25 09:41 Eos % (Auto) 0.0 % 04/26/25 09:41 Baso % (Auto) 0.2 % 04/26/25 09:41 Neut # (Auto) 24.90 10^3/uL (1.8-7.7) H 04/26/25 09:41 Lymph # (Auto) 0.8 10^3/uL (0.8-4.8) 04/26/25 09:41 [place] # (Auto) 1.4 10^3/uL (0.2-0.9) H 04/26/25 09:41 Eos # (Auto) 0.0 10^3/uL (0.0-0.8) 04/26/25 09:41 Baso # (Auto) 0.1 10^3/uL (0.0-0.1) 04/26/25 09:41 Nucleated RBC % (auto) 0 % 04/26/25 09:41 Nucleated RBCs # 0.0 /100WBC 04/26/25 09:41 Specimen Type Arterial 04/26/25 10:04 Sample Site Brachial, left 04/26/25 10:04 ABG pH 7.51 (7.35-7.45) H 04/26/25 10:04 ABG pCO2 34.1 mmHg (35-45) L 04/26/25 10:04 ABG pO2 80.3 mmHg (80.0-100.0) 04/26/25 10:04 ABG HCO3 26.9 mmol/L (22-26) H 04/26/25 10:04 ABG O2 Saturation 97.3 04/26/25 10:04 ABG Base Excess 3.6 mmol/L (-2.0-2.0) H 04/26/25 10:04 Abad Test Pos 04/26/25 10:04 A-a O2 Gradient 3.4 mmHg (5-10) L 04/26/25 10:04 Hematocrit 21.6 % (42-52) L 04/26/25 10:04 Hgb O2 Saturation 96.2 % (95-100) 04/26/25 10:04 Carboxyhemoglobin 1.2 %THgb (0.4-20.1) 04/26/25 10:04 Methemoglobin < 0.0 % (0.4-1.5) L 04/26/25 10:04 Total Hemoglobin 7.1 g/dL (14-18) L 04/26/25 10:04 Sodium 132.0 mmol/L (131-143) 04/26/25 10:04 Potassium 3.6 mmol/L (3.5-5.0) 04/26/25 10:04 Glucose 124.0 mg/dL (70-115) H 04/26/25 10:04 Ionized Calcium 1.2 mmol/L (1.1-1.4) 04/26/25 10:04 O2 Delivery Device Nc 04/26/25 10:04 O2 Liters/Min 4.0 % 04/26/25 10:04 Sterile Processing Technician ID [place] 04/26/25 10:04 Sodium 135 mmol/L (136-145) L 04/26/25 09:41 Potassium 3.8 mmol/L (3.5-5.1) 04/26/25 09:41 Chloride 92 mmol/L (98-107) L 04/26/25 09:41 Carbon Dioxide 24 mmol/L (22-29) 04/26/25 09:41 Anion Gap 22.8 (5-19) H 04/26/25 09:41 BUN 13 mg/dL (8-23) 04/26/25 09:41 Creatinine 0.6 mg/dL (0.7-1.2) L 04/26/25 09:41 GFR Calculation Not Reportable 04/26/25 09:41 Glucose 106 mg/dL (65-115) 04/26/25 09:41 Calculated Osmolality 281 mOsm/kg (285-295) L 04/26/25 09:41 Lactic Acid 2.2 mmol/L (0.5-2.2) 04/26/25 09:41 Calcium 9.0 mg/dL (8.5-10.5) 04/26/25 09:41 Total Bilirubin 1.2 mg/dL (0.15-1.2) 04/26/25 09:41 AST 55 U/L (0-40) H 04/26/25 09:41 ALT 37 U/L (0-41) 04/26/25 09:41 Alkaline Phosphatase 481 U/L (40-130) H 04/26/25 09:41 Troponin T Baseline 48 ng/L (0-15) H 04/26/25 09:41 Troponin T 120 Minute 39.79 ng/L (0-15) H 04/26/25 12:02 Delta Troponin T -8.21 ABS# (0-10) L 04/26/25 12:02 C-Reactive Protein 234.8 mg/L (0.0-4.9) H 04/26/25 09:41 NT-Pro-B Natriuret Pep 886 pg/mL (0-450) H 04/26/25 09:41 Total Protein 6.9 g/dL (6.6-8.7) 04/26/25 09:41 Albumin 3.2 g/dL (3.5-5.2) L 04/26/25 09:41 Globulin 3.7 g/dL (1.3-4.6) 04/26/25 09:41 Urine Color Dark yellow (Yellow) A 04/26/25 11:04 Urine Appearance Clear (CLEAR) 04/26/25 11:04 Urine pH 6.5 (5-7) 04/26/25 11:04 Ur Specific [place] 1.016 (1.005-1.030) 04/26/25 11:04 Urine Protein Trace (Negative) A 04/26/25 11:04 Urine Glucose (UA) Negative (Normal) 04/26/25 11:04 Urine Ketones 1+ (Negative) H 04/26/25 11:04 Urine Blood Negative (Negative) 04/26/25 11:04 Urine Nitrate Negative (Negative) 04/26/25 11:04 Urine Bilirubin Negative (Negative) 04/26/25 11:04 Urine Urobilinogen >=8.0 mg/dL (Negative) H 04/26/25 11:04 Ur Leukocyte Esterase Negative (Negative) 04/26/25 11:04 Urine RBC 0-2 /hpf (0-2) 04/26/25 11:04 Urine WBC 0-5 /hpf (0-5) 04/26/25 11:04 Ur Squamous Epith Cells 0-5 /hpf (0-5) 04/26/25 11:04 Calcium Oxalate Crystal 0-4 /hpf H 04/26/25 11:04 Amorphous Sediment Not Reportable 04/26/25 11:04 Urine Bacteria None seen /hpf (NONE) 04/26/25 11:04 Hyaline Casts 3.71 /lpf 04/26/25 11:04 Blood Type A Positive 04/26/25 10:23 Rho(D) Type Rh positive 04/26/25 10:23 Antibody Screen Negative 04/26/25 10:23 Crossmatch See Detail 04/26/25 10:23 All radiology interpretation(s) finalized by discharge Discharge Plan Discharge Patient Disposition: Admitted As Inpatient Clinical Impression: Lung mass, Metastasis to brain, Sepsis, Generalized weakness, Tachycardia, DNR (do not resuscitate) discussion, Seizure, Anemia Condition: Stable Coding Level of Care Code ED Bulk Gas Specialist for Alexa Atwood
[2025-04-26 10:11] LABS: Hematocrit 24.5 % (37-53); Hemoglobin 7.60 g/dL (11.27-16.99); Mean Corpuscular HGB Conc 31.0 g/dL (30-55); Mean Corpuscular Hemoglobin 23.6 pg (27-33); Mean Corpuscular Volume 76.1 fl (82-101); Nucleated Red Blood Cells % 0 %; Platelet Count 675 10^3/cmm (157-399); Red Blood Count 3.22 10^6/uL (3.85-5.65); White Blood Count 27.46 10^3/uL (3.29-11.43)
[2025-04-26 10:15] LABS: ABG PCO2 34.1 mmHg (35-45); ABG PH Result 7.51 (7.35-7.45); Alveolar-Arterial Oxygen Gradi 3.4 mmHg (5-10); Arterial Blood Gas Hematocrit 21.6 % (42-52); Blood Gas Allen Test Pos; Blood Gas LPM 4.0 %; Blood Gas Operator Identificat WALCI; Blood Gas Sample Site Brachial, left; Blood Gas Sample Type Arterial; Carboxyhemoglobin 1.2 %THgb (0.4-20.1); Glucose Level-ABG 124.0 mg/dL (70-115); HCO3 ABG 26.9 mmol/L (22-26); Ionized Calcium Level - ABG 1.2 mmol/L (1.1-1.4); Methemoglobin < 0.0 % (0.4-1.5); Oxygen Saturation ABG 97.3; PO2 ABG 80.3 mmHg (80.0-100.0); Potassium Level - ABG 3.6 mmol/L (3.5-5.0); Sodium Level - ABG 132.0 mmol/L (131-143)
[2025-04-26 10:22] LABS: Lactic Sepsis W/Reflex 2.2 mmol/L (0.5-2.2)
[2025-04-26 10:23] LABS: Troponin(5th) Baseline 48 ng/L (0-15)
[2025-04-26 10:31] LABS: Alanine Aminotransferase 37 U/L (0-41); Albumin Level 3.2 g/dL (3.5-5.2); Alkaline Phosphatase 481 U/L (40-130); Anion Gap 22.8 (5-19); Aspartate Amino Transferase 55 U/L (0-40); Blood Urea Nitrogen 13 mg/dL (8-23); Calcium 9.0 mg/dL (8.5-10.5); Carbon Dioxide 24 mmol/L (22-29); Chloride 92 mmol/L (98-107); Creatinine Clr Calc Pharmacy 87.0424; Globulin 3.7 g/dL (1.3-4.6); Glucose 106 mg/dL (65-115); NT Pro B Type Natriuretic Pept 886 pg/mL (0-450); Osmolality Calculated 281 mOsm/kg (285-295); Potassium 3.8 mmol/L (3.5-5.1); Sodium 135 mmol/L (136-145); Total Protein 6.9 g/dL (6.6-8.7)
--- NOTE | 2025-04-26 10:40 | CT_ITS ---
WS: [id number] CT CHEST, ABDOMEN, AND PELVIS TECHNIQUE: Contrast-enhanced CT of the chest, abdomen, and pelvis with coronal and sagittal reformatted images. CLINICAL INFORMATION: sepsis COMPARISON: None. DLP: 807.[address] scans at [facility] use at least one of these dose optimization techniques: automated exposure control; mA and/or kV adjustment per patient size (includes targeted exams where dose is matched to clinical indication); or iterative reconstruction. CT CHEST: Large spiculated neoplasm in the RIGHT upper lobe corresponding to the chest radiograph findings. This measures approximately 5.1 x 3.5 x 5.5 cm AP by transverse by craniocaudal. Enlarged enhancing RIGHT hilar and peribronchial lymph nodes suspicious for metastatic disease. Largest lymph node measures 2.5 cm. Pleural-based nodule RIGHT upper lobe posterior medially measuring 10 mm suspicious for local metastatic disease Enhancing RIGHT paraspinal lesion in the upper RIGHT thoracic paraspinal musculature measuring approximately 3.2 x 3.6 x 5.1 cm suspicious for metastatic disease. This abuts the transverse processes in the upper thoracic spine at T3 and T4. This also abuts several posterior ribs. Normal caliber thoracic aorta. Aortic calcification. Proximal main pulmonary arteries are normal. No axillary lymphadenopathy. Small esophageal hiatal hernia. Eccentric thickening of the distal thoracic esophagus suspicious for neoplasm. This can be followed up with endoscopy. Thoracic kyphosis. Tiny pericardial effusion. Interstitial thickening in the lung bases likely inflammatory. Bibasilar atelectasis. CT ABDOMEN AND PELVIS: Hepatomegaly. Fatty liver. Normal spleen. Small esophageal hiatal hernia. Splenic artery calcification. Normal pancreatic parenchymal enhancement. Adrenal glands are normal. Normal renal parenchymal enhancement. No hydronephrosis. Normal caliber abdominal aorta. Aortic calcification. Tiny fat-containing umbilical hernia. Rectal distention with constipation. Mild prostate enlargement. No evidence of high-grade small or large bowel obstruction. Normal appendix. No visualized lymphadenopathy in the abdomen or pelvis. Advanced spondylitic changes lumbar spine. Multilevel spinal canal stenosis in the lumbar spine due to chronic disc osteophyte complexes. Moderate central canal stenosis L3-4 and severe L4-5. CT/CT chest abdpel w/*[id number] IMPRESSION: 1. Large spiculated neoplasm in the RIGHT upper lobe described above. 2. RIGHT upper thoracic intramuscular paraspinal mass described above. 3. RIGHT hilar and peribronchial lymphadenopathy. 4. Eccentric nodular thickening of the distal thoracic esophagus. Finding susp icious for neoplasm. This can be followed up with endoscopy. 5. No evidence of metastatic disease in the abdomen or pelvis. 6. Moderate chronic central canal stenosis L3-4 and severe L4-5 due to chronic disc osteophyte complexes facet arthropathy and ligamentum flavum hypertrophy.
--- NOTE | 2025-04-26 10:40 | CT_ITS ---
WS: [id number] CT HEAD TECHNIQUE: Noncontrast CT of the head obtained from the skullbase to the vertex. CLINICAL INFORMATION: weakness COMPARISON: None. DLP: 1069.[address] scans at [facility] use at least one of these dose optimization techniques: automated exposure control; mA and/or kV adjustment per patient size (includes targeted exams where dose is matched to clinical indication); or iterative reconstruction. FINDINGS: Increased attenuation lesion in the LEFT inferior frontal lobe measuring 6 mm with moderate surrounding edema suspicious for metastatic disease this could be followed up with MRI without and with gadolinium enhancement if patient is a candidate. Vascular calcification. No other definite visualized lesions. Moderate small vessel changes. Moderate parenchymal volume loss. Vascular calcification. Sphenoid sinusitis with air- fluid level and secretions. Mild ethmoid sinusitis. Mastoid air cells are well aerated. Postoperative changes RIGHT globe CT/CT head wo con* [id number] IMPRESSION: 1. Small increased attenuation intraparenchymal lesion LEFT inferior frontal l obe most compatible with metastatic disease with moderate surrounding edema. Co nsider MRI without and with gadolinium enhancement in further assessment and to evaluate for additional lesions 2. Sphenoid sinusitis Notified Cony Chance MD at 04/26/2025 11:34 AM.
[2025-04-26 11:12] LABS: Glucose Urine UA Negative (Normal); Nitrate Urine Negative (Negative); Specific Gravity, Urine 1.016 (1.005-1.030)
[2025-04-26] MEDS: iohexol 350 mg/mL 500 mL Btl (per mL) IV (11:24)
[2025-04-26 11:32] LABS: UA Slide Review UA Slide Review Perf
[2025-04-26] MEDS: linezolid premix 600 MG/300 ML PREMIX 300 MG IV (11:34)
[2025-04-26 11:54] LABS: Reflex Lactate Order REFLEX LACTIC ORDERD
--- NOTE | 2025-04-26 12:03 | ECG_ITS ---
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 Measurements Intervals [place] Rate: 105 P: 0 DC: 0 QRS: -57 QRSD: 134 T: 5 QT: 349 QTc: 462 Interpretive Statements ATRIAL FIBRILLATION WITH RAPID VENTRICULAR RESPONSE RIGHT BUNDLE BRANCH BLOCK [120+ ms QRS DURATION, UPRIGHT V1, 40+ ms S IN I/aVL/V4/V5/V6] LEFT ANTERIOR FASCICULAR BLOCK [QRS AXIS <= -45, QR IN I, RS IN II] POSSIBLE SEPTAL MYOCARDIAL INFARCTION , OF INDETERMINATE AGE [30 ms Q WAVE IN V1/V2] Compared to ECG 04/26/2025 09:45:22 Left anterior fascicular block now present Myocardial infarct finding now present Left-axis deviation no longer present Electronically Signed On 04-26-2025 16:49:03 CDT by Waldo Mendez M.D. [id number]
[2025-04-26] MEDS: amiodarone 50 mg/mL SDV 3 mL 150 MG IVP (12:18)
[2025-04-26 12:28] LABS: Troponin 5 2HR 39.79 ng/L (0-15)
[2025-04-26 12:30] LABS: Troponin 5 2HR Delta -8.21 ABS# (0-10)
[2025-04-26] MEDS: LORazepam 1 MG/0.5 ML injection 2 MG IVP (12:31)
[2025-04-26] MEDS: levETIRAcetam 1,000 MG/100 ML PREMIX 400 MG IV (12:41)
--- NOTE | 2025-04-26 12:51 | PM.HP ---
Providers/Chief Complaint Primary Care Provider: Britt Ward Chief Complaint: weakness History of Present Illness Miguel Castillo is a 75 year old male with past medical history of lung mass patient not wanting any further workup, hypertension, hyperlipidemia, COPD presented to the hospital with worsening weakness. He said that he did not even get up from his walker anymore and does not feel stable. He is requesting to go to a nursing facility. He also made a comment to the ER doctor stating I am ready to meet the Lord. He denies fever cough, chest pain, shortness of breath. No facial droop. In the ER EKG showed possible A-fib versus atrial tachycardia per ER physician note. Chest x-ray showed increasing size of right upper lobe lung mass. CT of the head showed left inferior frontal lobe likely metastatic disease with moderate surrounding edema. CT chest of abdomen pelvis showed large spiculated neoplasm in right upper lobe. There is right upper thoracic intramuscular paraspinal mass. Labs showed leukocytosis 27,000 with left shift. Anemia with hemoglobin of 7.6. Urinalysis within normal limits not suggestive of infection. Patient was reseen in the ER by ER physician and patient had a brief seizure. He was mildly postictal afterwards. Once recovered goals of care discussion was done by ER doctor to which patient stated that he wanted to be a DNR. Patient stable on his home oxygen. Patient has been on it for last 7 to 8 years. He does have evidence of brain metastasis. He was given normal saline bolus 2 L, broad-spectrum antibiotics were initiated Zyvox meropenem. Lactic acid was ordered, blood cultures were ordered. IV Keppra was given IV Ativan was given for possible seizures. IV Decadron given for brain edema tomorrow. Hospitalist was requested to admit the patient. Patient seen in room 277 on medical surgical floor. He is laying in bed appearing comfortable. States he cannot take care of himself at home and would like to go to a nursing facility. He states he just could not breathe. Denies coughing or bringing up any sputum. Denies fever or shortness of breath chest pain, abdominal pain, diarrhea, nausea, vomiting. He states he has family in town however they do not get along. I asked if wanted to get his family involved in his care and he said no. He takes Trelegy at home. Sees Britt at [facility] in [place]. Patient would like to go to [facility] at this time. Had a goals of care discussion with him. He would like to be DNR/DNI. I discussed with him if he wanted to have any chemotherapy for his medical condition and he said no. I told him that the mass in the lung could very well be cancer and it has metastasized with a lesion in his brain. There could be other lesions as well. He states when his time to go its time to go. I asked him if he wanted any chemotherapy or bronchoscopy or any biopsies or further workup for this lung mass and he said no. I then asked him if he wanted to pursue hospice and go to a nursing facility. He stated that I cannot live alone at home I am unsafe to be at home alone. I cannot take care of myself anymore. I am weak I cannot walk. I then asked if he would like to go to a nursing facility with hospice. He said he will think about that at this point. Review of systems essentially negative. Does not complain of anything except stating my breathing was getting worse and worse and I could not get up and I felt weak. However when asked if he is experiencing shortness of breath upon exertion he answered no. He is chronically on 4 L nasal cannula. Also states he takes a water pill and does not follow with cardiology. Somewhat of a poor historian. Medications/Allergies Home Medications ?Medication ?Instructions ?Recorded ?Confirmed ?Last Taken ?Type acetaminophen 325 mg tablet 650 mg PO QID PRN Fever Or Pain 04/26/25 04/26/25 Unknown History (Tylenol) amlodipine 10 mg tablet 10 mg PO DAILY 04/26/25 04/26/25 04/26/25 History clonidine HCl 0.1 mg tablet 0.1 mg PO DAILY 04/26/25 04/26/25 04/26/25 History dorzolamide 2 % eye drops 1 drp ophthalmic (eye) BID 04/26/25 04/26/25 04/26/25 07:00 History fluticasone fur. 100 mcg-umeclid 1 ea inhalation DAILY 04/26/25 04/26/25 04/26/25 History 62.5 mcg-vilant 25 mcg inhalat.powder (Trelegy Ellipta) furosemide 20 mg tablet 20 mg PO DAILY 04/26/25 04/26/2525 History lisinopril 20 mg tablet 20 mg PO DAILY 04/26/25 04/26/25 04/26/25 History loratadine 10 mg tablet 10 mg PO DAILY PRN allergies 04/26/25 04/26/25 04/26/25 History lovastatin 40 mg tablet 40 mg PO DAILY 04/26/25 04/26/25 04/26/25 History multivitamin with minerals-folic 1 tab PO DAILY 04/26/25 04/26/25 04/25/25 History acid 400 mcg-lycopene 370 mcg tablet (One-A-Day Men's 50 Plus) naproxen sodium 220 mg tablet 220 mg PO Q12H PRN Pain 04/26/25 04/26/25 Unknown History (Aleve) omeprazole 20 mg capsule,delayed 40 mg PO DAILY 04/26/25 04/26/25 04/26/25 History release Allergies Allergy/AdvReac Type Severity Reaction Status Date / Time No Known Allergies Allergy Verified 04/26/25 09:39 Vitals/I&O/Wt Last Vital Signs Temp 98.0 F 04/26/25 12:25 Pulse 117 H 04/26/25 12:34 Resp 29 H 04/26/25 12:34 BP 126/77 04/26/25 12:34 Pulse Ox 97 04/26/25 12:34 O2 Del Method Nasal Cannula 04/26/25 12:34 O2 Flow Rate 4 04/26/25 12:34 04/25/25 04/26/25 04/26/25 22:59 06:59 14:59 Intake Total 800 / 800 Balance 800 / 800 Weight last 48 hrs Weight 82.554 kg Physical Exam Narrative: General: Alert oriented x3, patient seen laying in bed appearing comfortable sitting up in bed, seems to be slightly hard of hearing. On 4 L nasal cannula. HEENT: Normocephalic, atraumatic, EOMI, breathing 4L nasal cannula which is patient's baseline. Cardio: Regular rate rhythm, normal S1-S2, Respiratory: Diminished breath sounds at right base. GI: Abdomen soft, nontender, nondistended, bowel sounds + Extremities: No edema bilateral lower extremities. Data 04/26/25 09:41 04/26/25 09:41 Micro: Microbiology 04/26/25 10:14 Blood Culture - Preliminary Blood SPECIMEN COLLECTED 04/26/25 10:10 Blood Culture - Preliminary Blood SPECIMEN COLLECTED A&P Assessment and plan 1. DNR (do not resuscitate) discussion: 2. Anemia: 3. Metastasis to brain: 4. Sepsis: 5. Seizure: 6. Lung mass: 7. Generalized weakness: 8. Diastolic heart failure: Plan: #Spiculated lung mass #Brain metastases #Seizure possibly related to above #Sepsis secondary to unknown source possible pneumonia? #History of COPD #DNR status #Hyperlipidemia #Hypertension #Acute anemia, baseline unknown however in 2019 hemoglobin normal. ? Patient takes clonidine at home we will hold that at this time. Hold amlodipine hold Lasix. ? Continue lovastatin ? Continue omeprazole 40 daily ? Patient did receive 2 L normal saline bolus weight-based dosing per sepsis protocol. ? Lactic acid pending ? WBC count 27,000. Agree with broad-spectrum antibiotics ? Will place on vancomycin and Zosyn going forward ? Patient not interested in workup of lung mass at this time. ? Does have evidence of brain metastases. ? Patient did receive Decadron IV in the ER ? I will continue on Keppra 500 twice daily. Loading dose of Keppra given in ER ? Will order dexamethasone 6 mg oral daily ? Did offer patient to see shot tube machine tender here for possible bronchoscopy with biopsy however he is not interested at this time. ? He would like to be DNR/DNI status. ? Would like to go to nursing facility. ? Check PT OT ? Source of sepsis leukocytosis unknown. Possibly reactive versus true infection. Continue broad-spectrum antibiotics. ? Check urine culture, blood culture, sputum culture Gram stain. ? CT abdomen pelvis reviewed. ? Pain management ? Placed on seizure precautions ? Neurochecks every 2 hours ? Ativan 2 mg IV x 1 if further seizures. - Patient declined to have an MRI head. ? Will consult case management. ? Unclear etiology of leukocytosis at this time. CRP elevated. Check blood cultures ? Check iron studies ? Check FOBT ? Hemoglobin 7.6 at this time. Transfuse for hemoglobin less than 7. ? Check CBC every 12 hours. ? Patient does not have actual source of bleeding. Denies hematochezia hemoptysis. Denies hematuria. DNR/DNI DVT prophylaxis: Heparin SQ twice daily PDMP PDMP Reviewed: Not Reviewed Attestations Medical Necessity Statement*: Greater than 2 midnight stay for sepsis secondary to unknown source, patient has known lung mass with brain metastases with possible seizure today. Diagnoses DNR (do not resuscitate) discussion Z71.89 Anemia D64.9 Metastasis to brain C79.31 Sepsis A41.9 Seizure R56.9 Lung mass R91.8 Generalized weakness R53.1 Diastolic heart failure I50.30
--- NOTE | 2025-04-26 14:51 | PHA.VACGOAL ---
Vancomycin Goal - Goal Vancomycin Goal:: 15-20 mg/L Vancomycin Indication:: Other - Therapy Current therapy:: Pip/Tazo Day of therpy:: Day []of [] . Actual body weight (kg): 182 lb - Data Labs: WBC 27.46 10^3/uL (3.29-11.43) H 04/26/25 09:41 RBC 3.22 10^6/uL (3.85-5.65) L 04/26/25 09:41 Hgb 7.60 g/dL (11.27-16.99) L 04/26/25 09:41 Hct 24.5 % (37-53) L 04/26/25 09:41 MCV 76.1 fl (82-101) L 04/26/25 09:41 MCH 23.6 pg (27-33) L 04/26/25 09:41 MCHC 31.0 g/dL (30-55) 04/26/25 09:41 RDW 17.7 % (12.1-15.1) H 04/26/25 09:41 Sodium 135 mmol/L (136-145) L 04/26/25 09:41 Potassium 3.8 mmol/L (3.5-5.1) 04/26/25 09:41 Chloride 92 mmol/L (98-107) L 04/26/25 09:41 Carbon Dioxide 24 mmol/L (22-29) 04/26/25 09:41 Anion Gap 22.8 (5-19) H 04/26/25 09:41 BUN 13 mg/dL (8-23) 04/26/25 09:41 Creatinine 0.6 mg/dL (0.7-1.2) L 04/26/25 09:41 GFR Calculation Not Reportable 04/26/25 09:41 Last dialysis session:: N/A Treatment plan:: new consult Regimen:: LOADING DOSE OF 2000 MG X 1 MAINTENANCE DOSE OF 1500 MG Q12H PER DOSING PROTOCOL. Follow up:: WILL CONTINUE TO MONITOR AND FOLLOW UP DAILY
[2025-04-26 15:07] LABS: Lactic Acid level (Lactate) 0.8 mmol/L (0.5-2.2)
[2025-04-26 15:20] LABS: Estmated Average Glucose 128; Hemoglobin A1C 6.1 % (4.0-6.0)
[2025-04-26 15:25] LABS: Procalcitonin 0.38 ng/mL (0-0.5); Thyroid Stimulating Hormone 1.19 uIU/mL (0.27-4.20)
--- NOTE | 2025-04-26 15:59 | ECG_ITS ---
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 Measurements Intervals [place] Rate: 100 P: 0 FL: 0 QRS: -38 QRSD: 144 T: 10 QT: 387 QTc: 499 Interpretive Statements ATRIAL FLUTTER/TACHYCARDIA WITH RAPID VENTRICULAR RESPONSE LEFT AXIS DEVIATION [QRS AXIS < -30] RIGHT BUNDLE BRANCH BLOCK [120+ ms QRS DURATION, UPRIGHT V1, 40+ ms S IN I/aVL/V4/V5/V6] Compared to ECG 04/26/2025 12:03:59 Left-axis deviation now present Atrial fibrillation no longer present Left anterior fascicular block no longer present Myocardial infarct finding no longer present Electronically Signed On 04-26-2025 16:47:55 CDT by Waldo Mendez M.D. [id number]
[2025-04-26 16:05] LABS: Troponin 5 6HR 37.11 ng/L (0-15)
[2025-04-26 16:06] LABS: Troponin 5 6HR Delta -10.89 ng/L (0-12)
[2025-04-26] MEDS: heparin 5,000 unit/mL INJ 1 mL 5000 UNIT SUBCUT (16:14)
[2025-04-26] MEDS: piperacillin-tazobactam 3.375 GM in sodium chloride 0.9% (plus) 50 ML IV (18:44)
[2025-04-26 18:55] LABS: Ferritin 985 ng/mL (30-400); Iron 13 ug/dL (59-158); Total Iron Binding Capacity 112 mcg/dl; Unsaturated Iron Binding 99 ug/dL (112-347)
[2025-04-26 19:04] LABS: Hematocrit 26.1 % (37-53); Hemoglobin 8.10 g/dL (11.27-16.99); Mean Corpuscular HGB Conc 31.0 g/dL (30-55); Mean Corpuscular Hemoglobin 24.2 pg (27-33); Mean Corpuscular Volume 77.9 fl (82-101); Nucleated Red Blood Cells % 0 %; Platelet Count 518 10^3/cmm (157-399); Red Blood Count 3.35 10^6/uL (3.85-5.65)
[2025-04-26 19:13] LABS: White Blood Count 30.48 10^3/uL (3.29-11.43)
--- NOTE | 2025-04-26 19:40 | PC.NURSE ---
Friends of patient brought in patients medications in a bag. Medications in the pixis with patients wallet
[2025-04-27] VITALS (51 sets, daily range): BP systolic 96–145; BP diastolic 49–92; PULSE 79–182; RESP 16–39; TEMP 34.4–36.7; O2SAT 93–100
[2025-04-27] MEDS: piperacillin-tazobactam 3.375 GM in sodium chloride 0.9% (plus) 50 ML IV ×3 (02:26→17:09)
[2025-04-27] MEDS: heparin 5,000 unit/mL INJ 1 mL 5000 UNIT SUBCUT ×2 (02:26→14:20)
[2025-04-27 05:52] LABS: Hematocrit 26.4 % (37-53); Hemoglobin 8.30 g/dL (11.27-16.99); Mean Corpuscular HGB Conc 31.4 g/dL (30-55); Mean Corpuscular Hemoglobin 24.1 pg (27-33); Mean Corpuscular Volume 76.5 fl (82-101); Nucleated Red Blood Cells % 0 %; Platelet Count 549 10^3/cmm (157-399); Red Blood Count 3.45 10^6/uL (3.85-5.65); White Blood Count 29.24 10^3/uL (3.29-11.43)
[2025-04-27 06:05] LABS: LAB Peripheral Smear Sent for Review
[2025-04-27 06:17] LABS: Alanine Aminotransferase 30 U/L (0-41); Albumin Level 2.7 g/dL (3.5-5.2); Alkaline Phosphatase 351 U/L (40-130); Anion Gap 15.7 (5-19); Aspartate Amino Transferase 38 U/L (0-40); Blood Urea Nitrogen 11 mg/dL (8-23); Calcium 8.6 mg/dL (8.5-10.5); Carbon Dioxide 25 mmol/L (22-29); Chloride 99 mmol/L (98-107); Creatinine Clr Calc Pharmacy 81.0889; Globulin 3.2 g/dL (1.3-4.6); Glucose 161 mg/dL (65-115); Magnesium 1.5 mg/dL (1.7-2.3); Osmolality Calculated 285 mOsm/kg (285-295); Potassium 3.7 mmol/L (3.5-5.1); Sodium 136 mmol/L (136-145); Total Protein 5.9 g/dL (6.6-8.7)
[2025-04-27] MEDS: multivitamin therapeutic Tablet 1 TAB PO (08:29)
[2025-04-27] MEDS: dorzolamide 2% Op Soln 10 mL Btl 1 DROP EYE-BOTH ×2 (08:29→17:07)
[2025-04-27] MEDS: magnesium sulfate premix 4 GM/100 ML PREMIX IV (10:43)
--- NOTE | 2025-04-27 11:15 | ECG_ITS ---
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 Measurements Intervals [place] Rate: 120 P: 0 OR: 0 QRS: -60 QRSD: 141 T: -65 QT: 397 QTc: 563 Interpretive Statements ATRIAL FLUTTER/TACHYCARDIA WITH RAPID VENTRICULAR RESPONSE WITH ABERRANT CONDUCTION OR VENTRICULAR PREMATURE COMPLEXES LEFT AXIS DEVIATION [QRS AXIS < -30] RIGHT BUNDLE BRANCH BLOCK [120+ ms QRS DURATION, UPRIGHT V1, 40+ ms S IN I/aVL/V4/V5/V6] MARKED T-WAVE ABNORMALITY, CONSIDER ANTEROLATERAL ISCHEMIA MODERATE T-WAVE ABNORMALITY, CONSIDER INFERIOR ISCHEMIA INTERPRETATION BASED ON A DEFAULT AGE OF 40 YEARS Compared to ECG 04/26/2025 16:32:28 Ventricular premature complex(es) now present.Aberrant conduction of supraventricular beat(s) now present. T-wave abnormality now present Possible ischemia now present Electronically Signed On 04-29-2025 14:13:49 CDT by Waldo Mendez M.D. [id number]
[2025-04-27] MEDS: dilTIAZem 5 mg/mL SDV 5 mL 10 MG IVP (12:53)
[2025-04-27 14:27] LABS: Uric Acid 2.7 mg/dL (3.4-7.0)
--- NOTE | 2025-04-27 14:32 | PM.PN ---
Vitals/I&O/Wt Last Vital Signs Temp 97.5 F L 04/27/25 12:00 Pulse 117 H 04/27/25 14:00 Resp 17 04/27/25 12:00 BP 145/63 04/27/25 12:00 Pulse Ox 95 04/27/25 13:02 O2 Del Method Nasal Cannula 04/27/25 13:02 O2 Flow Rate 3 04/27/25 13:02 04/26/25 04/27/25 04/27/25 22:59 06:59 14:59 Intake Total 690 / 2940 1301.25 / 4241.25 510 / 510 Output Total 400 / 400 550 / 950 650 / 650 Balance 290 / 2540 751.25 / 3291.25 -140 / -140 Weight last 48 hrs Weight 68.946 kg Weight 70.942 kg Weight 82.554 kg Data 04/27/25 05:35 04/27/25 05:35 Micro: Microbiology 04/26/25 10:14 Blood Culture - Preliminary Blood NEGATIVE TO DATE 04/26/25 10:10 Blood Culture - Preliminary Blood NEGATIVE TO DATE A&P Assessment and plan 1. DNR (do not resuscitate) discussion: 2. Anemia: 3. Metastasis to brain: 4. Sepsis: 5. Seizure: 6. Lung mass: 7. Generalized weakness: 8. Diastolic heart failure: 9. Paraspinal mass: 10. Brain lesion: 11. Thrombocytosis: Plan: #Spiculated lung mass #Brain metastases #Seizure possibly related to above #Sepsis secondary to unknown source possible pneumonia? #History of COPD #DNR status #Hyperlipidemia #Hypertension #Acute anemia, baseline unknown however in 2019 hemoglobin normal. ? Patient takes clonidine at home we will hold that at this time. Hold amlodipine hold Lasix. ? Continue lovastatin ? Continue omeprazole 40 daily ? Patient did receive 2 L normal saline bolus weight-based dosing per sepsis protocol. ? Lactic acid pending ? WBC count 27,000. Agree with broad-spectrum antibiotics ? Will place on vancomycin and Zosyn going forward ? Patient not interested in workup of lung mass at this time. ? Does have evidence of brain metastases. ? Patient did receive Decadron IV in the ER ? I will continue on Keppra 500 twice daily. Loading dose of Keppra given in ER ? Will order dexamethasone 6 mg oral daily ? Did offer patient to see logging truck driver here for possible bronchoscopy with biopsy however he is not interested at this time. ? He would like to be DNR/DNI status. ? Would like to go to nursing facility. ? Check PT OT ? Source of sepsis leukocytosis unknown. Possibly reactive versus true infection. Continue broad-spectrum antibiotics. ? Check urine culture, blood culture, sputum culture Gram stain. ? CT abdomen pelvis reviewed. ? Pain management ? Placed on seizure precautions ? Neurochecks every 2 hours ? Ativan 2 mg IV x 1 if further seizures. - Patient declined to have an MRI head. ? Will consult case management. ? Unclear etiology of leukocytosis at this time. CRP elevated. Check blood cultures ? Check iron studies ? Check FOBT ? Hemoglobin 7.6 at this time. Transfuse for hemoglobin less than 7. ? Check CBC every 12 hours. ? Patient does not have actual source of bleeding. Denies hematochezia hemoptysis. Denies hematuria. DNR/DNI DVT prophylaxis: Heparin SQ twice daily 04/27/2025 Discussed with oncology over the phone. We reviewed patient's lab findings and discussed imaging studies. Check nuclear bone scan, LDH, uric acid, phosphorus, iron studies. Oncology recommends EGD to biopsy esophageal area as there is thickening present. Peripheral blood flow cytometry for leukemia lymphoma panel PCR able Ultrasound or CT-guided biopsy for paraspinal mass Potentially neurosurgical evaluation for brain lesion. Patient will need bronchoscopy/EBUS for biopsy of lesion in lung. We will need to identify primary source of malignancy. Discussed with interventional pulmonology. They plan to take patient for procedure sometime early next week. At this time he has leukocytosis thrombocytosis, infection not completely ruled out. Continue broad-spectrum antibiotics and complete 7-day course I will suspicion patient's leukocytosis reactive versus underlying leukemia. I do not believe this is from an infective source. He does have a history of thrombocytosis and leukocytosis from few years ago as well. It is neutrophil dominant. Possibility of leukemia. Magnesium 1.5 today. Ordered magnesium 4 g daily Had a discussion with patient regarding further management and he would like to pursue diagnostic workup at this time. He states he will decide on further treatment after he is aware of what kind of malignancy he has and what the prognosis may be. He was still like to go to a nursing facility at time of discharge and states he cannot take care of himself at home. PT OT. Continue dexamethasone 6 oral daily x 5 days. Discussed with oncology. Continue Keppra 500 twice daily. PDMP PDMP Reviewed: Not Reviewed Attestations Medical Necessity Statement*: Greater than 2 midnight stay for sepsis secondary to unknown source, patient has known lung mass with brain metastases with possible seizure today. Diagnoses DNR (do not resuscitate) discussion Z71.89 Anemia D64.9 Metastasis to brain C79.31 Sepsis A41.9 Seizure R56.9 Lung mass R91.8 Generalized weakness R53.1 Diastolic heart failure I50.30 Paraspinal mass R22.2 Brain lesion G93.9 Thrombocytosis D75.839
[2025-04-27] MEDS: dilTIAZem 100 MG in sodium chloride 0.9% (add-van) 100 ML 10 MG IV (18:38)
[2025-04-28] VITALS (14 sets, daily range): BP systolic 114–137; BP diastolic 63–82; PULSE 57–112; RESP 18–34; TEMP 36.4–37; O2SAT 95–98
[2025-04-28] MEDS: piperacillin-tazobactam 3.375 GM in sodium chloride 0.9% (plus) 50 ML IV ×3 (02:13→17:17)
[2025-04-28 03:27] LABS: Hematocrit 24.0 % (37-53); Hemoglobin 7.40 g/dL (11.27-16.99); Mean Corpuscular HGB Conc 30.8 g/dL (30-55); Mean Corpuscular Hemoglobin 24.0 pg (27-33); Mean Corpuscular Volume 77.9 fl (82-101); Nucleated Red Blood Cells % 0 %; Platelet Count 576 10^3/cmm (157-399); Red Blood Count 3.08 10^6/uL (3.85-5.65)
[2025-04-28 03:43] LABS: White Blood Count 35.60 10^3/uL (3.29-11.43)
[2025-04-28 03:52] LABS: Alanine Aminotransferase 32 U/L (0-41); Albumin Level 2.6 g/dL (3.5-5.2); Alkaline Phosphatase 298 U/L (40-130); Anion Gap 17.2 (5-19); Aspartate Amino Transferase 37 U/L (0-40); Blood Urea Nitrogen 12 mg/dL (8-23); Calcium 8.9 mg/dL (8.5-10.5); Carbon Dioxide 23 mmol/L (22-29); Chloride 103 mmol/L (98-107); Creatinine Clr Calc Pharmacy 81.0889; Globulin 3.6 g/dL (1.3-4.6); Glucose 165 mg/dL (65-115); Magnesium 1.9 mg/dL (1.7-2.3); Osmolality Calculated 291 mOsm/kg (285-295); Potassium 4.2 mmol/L (3.5-5.1); Sodium 139 mmol/L (136-145); Total Protein 6.2 g/dL (6.6-8.7)
--- NOTE | 2025-04-28 07:14 | PC.NURSE ---
Patient converted to sr, HR dropped down upper 50's. Dr Chappell notified. Cardizem gtt titrated down and paused.
[2025-04-28] MEDS: multivitamin therapeutic Tablet 1 TAB PO (08:31)
[2025-04-28] MEDS: dorzolamide 2% Op Soln 10 mL Btl 1 DROP EYE-BOTH ×2 (08:31→17:16)
[2025-04-28 08:44] LABS: INR 1.38 (0.8-1.2); Prothrombin Time 17.90 SECONDS (12.1-14.9)
--- NOTE | 2025-04-28 12:19 | PM.CONSULT ---
Providers/Reason For Consult Consulting Physician/Specialty*: LILI Mendez MD/cardiology Reason for Consult*: Patient with atrial fibrillation rapid ventricular rate Requesting Physician: Dr. Kevin Attending Physician: Rizwana Kevin MD Primary Care Provider: Britt Ward History of Present Illness History of Present Illness Miguel Castillo is a 75 year old male With a history of hypertension, dyslipidemia, COPD , heavy smoking abuse and alcohol abuse in the past, is admitted to the hospital through the emergency room, where he presented with complaints of progressive weakness and shortness of breath. He was found to have possible metastatic lesions in the brain and other parts of the body. Also has a large mass in the right upper lobe of the lung, possibly the primary. He was found to have atrial fibrillation with rapid ventricular rate on the EKG. He was started on a Cardizem drip. His rate still remains uncontrolled. Cardiology consult is requested for further cardiac evaluation recommendations. This patient has no previous history of coronary coronary disease, myocardial infarction or congestive heart failure. His LV function is not known. He has not had any chest pain or palpitations. He was told to have lung cancer a year and a half or 2 years ago. According the patient, he refused to have any treatment for the lung cancer at that time. He has not had any active follow-up. He has a higher than 10 pack history of smoking abuse which he quit 5 or 6 years ago. Also has a history of heavy alcohol abuse which he quit 15 years ago. No drug abuse or any other substance abuse. He has no previous history for any cardiac arrhythmia. No history for any CVA, peripheral artery disease, kidney disease, liver disease or bleeding disorders. No significant family history. He lives alone. 4 times. He has 3 children but is alienated from them. Review of Systems Narrative: CONSTITUTIONAL: Generalized weakness/lethargy for the last few months EYES: No blurring of vision or other visual disturbances lately. ENT: No hoarseness of voice, auditory disturbances or sore throat. CARDIOVASCULAR: As mentioned above. RESPIRATORY: COPD and lung cancer as mentioned above GASTROINTESTINAL: No hematemesis or melena. GENITOURINARY: No dysuria or hematuria. INTEGUMENTARY: No skin rashes or history of skin cancer. NEURO: Possible metastatic lesion and had a brief episode of seizure in the emergency room. PSYCHIATRIC: No history of psychosis or major depression. HEMATOLOGIC: No bleeding disorders or significant anemia. ENDOCRINE: No history of polyuria or polydipsia. MUSCULOSKELETAL: No recent joint pain or swelling. ALLERGY/IMMUNOLOGY: As mentioned above. Medications/Allergies Home Medications ?Medication ?Instructions ?Recorded ?Confirmed ?Last Taken ?Type acetaminophen 325 mg tablet 650 mg PO QID PRN Fever Or Pain 04/26/25 04/26/25 Unknown History (Tylenol) amlodipine 10 mg tablet 10 mg PO DAILY 04/26/25 04/26/25 04/26/25 History clonidine HCl 0.1 mg tablet 0.1 mg PO DAILY 04/26/25 04/26/25 04/26/25 History dorzolamide 2 % eye drops 1 drp ophthalmic (eye) BID 04/26/25 04/26/25 04/26/25 07:00 History fluticasone fur. 100 mcg-umeclid 1 ea inhalation DAILY 04/26/25 04/26/25 04/26/25 History 62.5 mcg-vilant 25 mcg inhalat.powder (Trelegy Ellipta) furosemide 20 mg tablet 20 mg PO DAILY 04/26/25 04/26/25 04/26/25 History lisinopril 20 mg tablet 20 mg PO DAILY 04/26/25 04/26/25 04/26/25 History loratadine 10 mg tablet 10 mg PO DAILY PRN allergies 04/26/25 04/26/25 04/26/25 History lovastatin 40 mg tablet 40 mg PO DAILY 04/26/25 04/26/25 04/26/25 History multivitamin with minerals-folic 1 tab PO DAILY 04/26/25 04/26/25 04/25/25 History acid 400 mcg-lycopene 370 mcg tablet (One-A-Day Men's 50 Plus) naproxen sodium 220 mg tablet 220 mg PO Q12H PRN Pain 04/26/25 04/26/25 Unknown History (Aleve) omeprazole 20 mg capsule,delayed 40 mg PO DAILY 04/26/25 04/26/25 04/26/25 History release Allergies Allergy/AdvReac Type Severity Reaction Status Date / Time No Known Allergies Allergy Verified 04/26/25 09:39 Current Medications Generic Name Dose Route Start Last Admin Trade Name Freq PRN Reason Stop Dose Admin Atorvastatin Calcium 20 mg 04/27/25 09:00 04/28/25 08:31 Atorvastatin 40 Mg Tablet PO 20 mg DAILY ALCIDES Administration Dexamethasone 6 mg 04/27/25 09:00 04/28/25 08:31 Dexamethasone 4 Mg Tablet PO 6 mg DAILY ALCIDES Administration Dorzolamide HCl 1 drop 04/26/25 18:00 04/28/25 08:31 Dorzolamide 2% Op Soln 10 Ml Btl EYE-BOTH 1 drop BID ALCIDES Administration Heparin Sodium (Porcine) 5,000 unit 04/26/25 14:45 04/27/25 14:20 Heparin 5,000 Unit/Ml Inj 1 Ml SUBCUT 5,000 unit On Hold: 04/27/25 15:20 Q12H ALCIDES Administration Sodium Chloride 1,000 mls @ 75 mls/hr 04/26/25 14:45 04/28/25 05:27 Sodium Chloride 0.9% IV 75 mls/hr .[id number] ALCIDES Administration Vancomycin HCl 1,500 mg in 300 mls @ 200 mls/hr 04/27/25 03:00 04/28/25 05:27 Vancocin IV Infused Q12H ALCIDES Infusion Piperacillin Sod/Tazobactam 50 mls @ 12.5 mls/hr 04/26/25 18:00 04/28/25 11:13 Sod 3.375 gm/ Sodium Chloride IV 12.5 mls/hr Q8H ALCIDES Administration Diltiazem HCl 100 mg/ Sodium 100 mls @ 0 mls/hr 04/27/25 12:30 04/28/25 08:35 Chloride IV 10 mg/hr .Q0M ALCIDES 10 mls/hr Protocol Titration Per Protocol Levalbuterol HCl 0.63 mg 04/27/25 14:00 04/28/25 07:50 Levalbuterol 0.63 Mg/3 Ml Neb INHALATION 0.63 mg Q6H.RESP ALCIDES Administration Levetiracetam 500 mg 04/26/25 18:00 04/28/25 08:31 Levetiracetam 500 Mg/5 Ml Udc PO 500 mg BID ALCIDES Administration Multivitamins Therapeutic 1 tab 04/27/25 09:00 04/28/25 08:31 Multivitamin Therapeutic Tablet PO 1 tab DAILY ALCIDES Administration Pantoprazole Sodium 40 mg 04/27/25 09:00 04/28/25 08:[address] 40 Mg Tablet PO 40 mg DAILY ALCIDES Administration Vitals/I&O/Wt Last Vital Signs Temp 97.8 F 04/28/25 11:35 Pulse 92 04/28/25 11:35 Resp 22 H 04/28/25 11:35 BP 120/67 04/28/25 11:35 Pulse Ox 95 04/28/25 07:51 O2 Del Method Nasal Cannula 04/28/25 07:51 O2 Flow Rate 3 04/28/25 07:51 04/27/25 04/28/25 04/28/25 22:59 06:59 14:59 Intake Total 1731.167 / 2241.167 1439.500 / 3680.667 360 / 360 Output Total 400 / 1050 100 / 1150 100 / 100 Balance 1331.167 / 8331.297 9688.500 / 2530.667 260 / 260 Weight last 48 hrs Weight 163 lb 6.4 oz Weight 152 lb Weight 156 lb 6.4 oz Physical Exam Narrative: GENERAL: The patient is alert and oriented times three. Not in any acute distress. HEENT: No significant pallor, icterus or lymphadenopathy.Oral cavity: There are no mucous membrane lesions. NECK: Trachea appears to be central. No masses noted. No JVD or thyromegaly appreciated. RESPIRATORY: Chest is symmetrical. No intercostals muscle retraction or any accessory muscle activation. He has some vague chest wall tenderness. Breath sounds are heard bilaterally. No rales or rhonchi heard. No evidence of any consolidation. BREASTS: Deferred. HEART: The heart sounds are normal. No S3 or S4. No significant murmurs. No pericardial rub ABDOMEN: No vessel pulsations or distention. No tenderness. No organomegaly appreciated. Bowel sounds are normally heard. : Deferred. RECTAL: Deferred. LYMPHATIC: No lymphadenopathy noted in the neck. EXTREMITIES: No edema or cyanosis. No clubbing. MUSCULOSKELETAL: No acute joint deformities or swelling SKIN: There are no significant rashes or ecchymosis NEUROPSYCHIATRIC: The patient is alert and oriented x3. Appears to be in a good mood. No tremors or rigidity noted. Data 04/29/25 03:37 04/29/25 03:37 Other Labs: Laboratory Last Values WBC 35.60 10^3/uL (3.29-11.43) H* 04/28/25 03:00 RBC 3.08 10^6/uL (3.85-5.65) L 04/28/25 03:00 Hgb 7.40 g/dL (11.27-16.99) L 04/28/25 03:00 Hct 24.0 % (37-53) L 04/28/25 03:00 MCV 77.9 fl (82-101) L 04/28/25 03:00 MCH 24.0 pg (27-33) L 04/28/25 03:00 MCHC 30.8 g/dL (30-55) 04/28/25 03:00 RDW 17.8 % (12.1-15.1) H 04/28/25 03:00 Plt Count 576 10^3/cmm (157-399) H 04/28/25 03:00 MPV 9.6 fL (7.4-10.4) 04/28/25 03:00 Neut % (Auto) 92.8 % 04/28/25 03:00 Lymph % (Auto) 2.3 % 04/28/25 03:00 [place] % (Auto) 2.8 % 04/28/25 03:00 Eos % (Auto) 0.0 % 04/28/25 03:00 Baso % (Auto) 0.2 % 04/28/25 03:00 Neut # (Auto) 33.06 10^3/uL (1.8-7.7) H 04/28/25 03:00 Lymph # (Auto) 0.8 10^3/uL (0.8-4.8) 04/28/25 03:00 [place] # (Auto) 1.0 10^3/uL (0.2-0.9) H 04/28/25 03:00 Eos # (Auto) 0.0 10^3/uL (0.0-0.8) 04/28/25 03:00 Baso # (Auto) 0.1 10^3/uL (0.0-0.1) 04/28/25 03:00 Nucleated RBC % (auto) 0 % 04/28/25 03:00 Nucleated RBCs # 0.0 /100WBC 04/28/25 03:00 Peripher Smr Path Cons Sent for review 04/27/25 05:35 PT 17.90 SECONDS (12.1-14.9) H 04/28/25 08:18 INR 1.38 (0.8-1.2) H 04/28/25 08:18 D-Dimer 1.31 ug/mLFEU (0-0.59) H 04/26/25 09:41 Specimen Type Arterial 04/26/25 10:04 Sample Site Brachial, left 04/26/25 10:04 ABG pH 7.51 (7.35-7.45) H 04/26/25 10:04 ABG pCO2 34.1 mmHg (35-45) L 04/26/25 10:04 ABG pO2 80.3 mmHg (80.0-100.0) 04/26/25 10:04 ABG HCO3 26.9 mmol/L (22-26) H 04/26/25 10:04 ABG O2 Saturation 97.3 04/26/25 10:04 ABG Base Excess 3.6 mmol/L (-2.0-2.0) H 04/26/25 10:04 Abad Test Pos 04/26/25 10:04 A-a O2 Gradient 3.4 mmHg (5-10) L 04/26/25 10:04 Hematocrit 21.6 % (42-52) L 04/26/25 10:04 Hgb O2 Saturation 96.2 % (95-100) 04/26/25 10:04 Carboxyhemoglobin 1.2 %THgb (0.4-20.1) 04/26/25 10:04 Methemoglobin < 0.0 % (0.4-1.5) L 04/26/25 10:04 Total Hemoglobin 7.1 g/dL (14-18) L 04/26/25 10:04 Sodium 132.0 mmol/L (131-143) 04/26/25 10:04 Potassium 3.6 mmol/L (3.5-5.0) 04/26/25 10:04 Glucose 124.0 mg/dL (70-115) H 04/26/25 10:04 Ionized Calcium 1.2 mmol/L (1.1-1.4) 04/26/25 10:04 O2 Delivery Device Nc 04/26/25 10:04 O2 Liters/Min 4.0 % 04/26/25 10:04 [employer] Maker ID [place] 04/26/25 10:04 Sodium 139 mmol/L (136-145) 04/28/25 03:00 Potassium 4.2 mmol/L (3.5-5.1) 04/28/25 03:00 Chloride 103 mmol/L (98-107) 04/28/25 03:00 Carbon Dioxide 23 mmol/L (22-29) 04/28/25 03:00 Anion Gap 17.2 (5-19) 04/28/25 03:00 BUN 12 mg/dL (8-23) 04/28/25 03:00 Creatinine 0.6 mg/dL (0.7-1.2) L 04/28/25 03:00 GFR Calculation Not Reportable 04/28/25 03:00 Glucose 165 mg/dL (65-115) H 04/28/25 03:00 Estimat Average Glucose 128 04/26/25 09:41 Hemoglobin A1c 6.1 % (4.0-6.0) H 04/26/25 09:41 Calculated Osmolality 291 mOsm/kg (285-295) 04/28/25 03:00 Lactic Acid 2.2 mmol/L (0.5-2.2) 04/26/25 09:41 Lactic Acid (Sepsis) 0.8 mmol/L (0.5-2.2) 04/26/25 14:35 Uric Acid 2.7 mg/dL (3.4-7.0) L 04/27/25 05:35 Calcium 8.9 mg/dL (8.5-10.5) 04/28/25 03:00 Phosphorus 3.8 mg/dL (2.5-4.5) 04/27/25 05:35 Magnesium 1.9 mg/dL (1.7-2.3) 04/28/25 03:00 Iron 13 ug/dL (59-158) L 04/26/25 12:02 TIBC 112 mcg/dl 04/26/25 12:02 % Saturation 11.6 % (20-50) L 04/26/25 12:02 Unsat Iron Binding 99 ug/dL (112-347) L 04/26/25 12:02 Ferritin 985 ng/mL (30-400) H 04/26/25 12:02 Total Bilirubin 0.4 mg/dL (0.15-1.2) 04/28/25 03:00 AST 37 U/L (0-40) 04/28/25 03:00 ALT 32 U/L (0-41) 04/28/25 03:00 Alkaline Phosphatase 298 U/L (40-130) H 04/28/25 03:00 Lactate Dehydrogenase 196 U/L (135-225) 04/27/25 05:35 Troponin T Baseline 48 ng/L (0-15) H 04/26/25 09:41 Troponin T 120 Minute 39.79 ng/L (0-15) H 04/26/25 12:02 Delta Troponin T -8.21 ABS# (0-10) L 04/26/25 12:02 Troponin T Hi Sens 6Hr 37.11 ng/L (0-15) H 04/26/25 15:38 Troponin T Hi Sens 6Hr Delta -10.89 ng/L (0-12) L 04/26/25 15:38 C-Reactive Protein 234.8 mg/L (0.0-4.9) H 04/26/25 09:41 NT-Pro-B Natriuret Pep 886 pg/mL (0-450) H 04/26/25 09:41 Total Protein 6.2 g/dL (6.6-8.7) L 04/28/25 03:00 Albumin 2.6 g/dL (3.5-5.2) L 04/28/25 03:00 Globulin 3.6 g/dL (1.3-4.6) 04/28/25 03:00 Procalcitonin 0.38 ng/mL (0-0.5) 04/26/25 12:02 TSH 1.19 uIU/mL (0.27-4.20) 04/26/25 12:02 Urine Color Dark yellow (Yellow) A 04/26/25 11:04 Urine Appearance Clear (CLEAR) 04/26/25 11:04 Urine pH 6.5 (5-7) 04/26/25 11:04 Ur Specific [place] 1.016 (1.005-1.030) 04/26/25 11:04 Urine Protein Trace (Negative) A 04/26/25 11:04 Urine Glucose (UA) Negative (Normal) 04/26/25 11:04 Urine Ketones 1+ (Negative) H 04/26/25 11:04 Urine Blood Negative (Negative) 04/26/25 11:04 Urine Nitrate Negative (Negative) 04/26/25 11:04 Urine Bilirubin Negative (Negative) 04/26/25 11:04 Urine Urobilinogen >=8.0 mg/dL (Negative) H 04/26/25 11:04 Ur Leukocyte Esterase Negative (Negative) 04/26/25 11:04 Urine RBC 0-2 /hpf (0-2) 04/26/25 11:04 Urine WBC 0-5 /hpf (0-5) 04/26/25 11:04 Ur Squamous Epith Cells 0-5 /hpf (0-5) 04/26/25 11:04 Calcium Oxalate Crystal 0-4 /hpf H 04/26/25 11:04 Amorphous Sediment Not Reportable 04/26/25 11:04 Urine Bacteria None seen /hpf (NONE) 04/26/25 11:04 Hyaline Casts 3.71 /lpf 04/26/25 11:04 Lymphoma Panel Cancelled 04/27/25 05:35 Blood Type A Positive 04/26/25 10:23 Rho(D) Type Rh positive 04/26/25 10:23 Antibody Screen Negative 04/26/25 10:23 Crossmatch See Detail 04/26/25 10:23 Micro: Microbiology 04/26/25 10:14 Blood Culture - Preliminary Blood NEGATIVE TO DATE 04/26/25 10:10 Blood Culture - Preliminary Blood NEGATIVE TO DATE Other data: The EKG from yesterday 04/27/2025 showedAtrial fibrillation with a ventricular response rate of 120 bpm. Right bundle branch block pattern. Nonspecific T wave changes. Occasional PVCs/aberrantly conducted beats. CT of the head . Small increased attenuation intraparenchymal lesion LEFT inferior frontal lobe most compatible with metastatic disease with moderate surrounding edema. Consider MRI without and with gadolinium enhancement in further assessment and to evaluate for additional lesions 2. Sphenoid sinus CT of the chest, abdomen and pelvis 1. Large spiculated neoplasm in the RIGHT upper lobe described above. 2. RIGHT upper thoracic intramuscular paraspinal mass described above. 3. RIGHT hilar and peribronchial lymphadenopathy. 4. Eccentric nodular thickening of the distal thoracic esophagus. Finding suspicious for neoplasm. This can be followed up with endoscopy. 5. No evidence of metastatic disease in the abdomen or pelvis. 6. Moderate chronic central canal stenosis L3-4 and severe L4-5 due to chronic disc osteophyte complexes facet arthropathy and ligamentum flavum hypertrophy. A&P Assessment and plan 1. Atrial fibrillation with rapid ventricular response: The patient's heart rate is getting under control. He is on IV Cardizem. I may also start him on a small dose of metoprolol p.o. In view of the anemia and possible metastatic brain lesion with edema, it may be appropriate to hold off on any anticoagulation at this time because of the increased chance of bleeding. 2. Metastasis to brain: 3. Anemia, unspecified type: Possibly from the metastatic CA. Workup is in progress 4. Sepsis, due to unspecified organism, unspecified whether acute organ dysfunction present: Workup and management as per the primary 5. Lung mass: Possibly the primary tumor Plan: Will go ahead and do an echocardiogram to evaluate LV function and rule out any other pathology. Metoprolol 25 mg p.o. now and twice daily. Baby aspirin, if it is acceptable with the neurology Patient on the clinical progress on the results of the echo, further recommendations will be made. Thank you for the opportunity to evaluate this patient and make these recommendations PDMP PDMP Reviewed: Not Reviewed Coding Level of Care Code 52949 Diagnoses Atrial fibrillation with rapid ventricular response I48.91 Metastasis to brain C79.31 Anemia, unspecified type D64.9 Anemia type: unspecified type Sepsis, due to unspecified organism, unspecified whether acute organ dysfunction present A41.9 Sepsis acute organ dysfunction status: unspecified Sepsis type: sepsis due to unspecified organism Lung mass R91.8
[2025-04-28] MEDS: dilTIAZem 100 MG in sodium chloride 0.9% (add-van) 100 ML 10 MG IV (12:45)
--- NOTE | 2025-04-28 13:32 | PC.SOCIAL ---
IMM updated IMM dated and initialed, copy placed in chart and copy given to patient
--- NOTE | 2025-04-28 13:55 | NM_ITS ---
WS: [id number] NUCLEAR MEDICINE BONE SCAN Radiopharmaceutical: 26.9 Tc-99m MDP mCi IV Injection site: Antecubital Postinjection imaging delay: 1 hr CLINICAL INFORMATION: r/o metastatic disease COMPARISON: None. FINDINGS: Bone lesions: Several punctate foci of low-grade uptake within the ribs bilaterally may be due to healing rib fractures but metastatic disease not entirely excluded. Area of increased uptake in the proximal RIGHT femoral shaft suspicious for metastatic disease. Recommend correlation with RIGHT femur ra diographs. Additional nonspecific punctate focus of increased uptake in the RIGHT ischium. Soft tissue contours: Normal. Kidneys: Normal. Other findings: Degenerative type uptake involving the AC joints and sternoclavicular joints. NM/NM bone scan whole body* [id number] IMPRESSION: See discussion above
--- NOTE | 2025-04-28 15:44 | P.PN_ITS ---
Subjective 2 Subjective: Seen this morning. Peripheral smear is pending Discussed with patient that he will be going for paraspinal mass biopsy today to which she is agreeable. Later on when radiology came to transport him to radiology department for the procedure patient declined and stated that he would only have it done on Thursday and there is no way he would go for it today because he has been feeling very tired as he has been going for various scans today. Earlier patient had a bone scan this morning. Results are pending Hemoglobin 7.4 today WBC 35.6. Peripheral smear is still pending Platelet count 576. Vitals/I&O/Wt Last Vital Signs Temp 97.8 F 04/28/25 11:35 Pulse 112 H 04/28/25 13:28 Resp 20 H 04/28/25 13:28 BP 120/67 04/28/25 11:35 Pulse Ox 95 04/28/25 13:28 O2 Del Method Nasal Cannula 04/28/25 13:28 O2 Flow Rate 3 04/28/25 13:28 04/28/25 04/28/25 04/28/25 06:59 14:59 22:59 Intake Total 1439.500 / 3680.667 657.500 / 657.500 Output Total 100 / 1150 300 / 300 Balance 1339.500 / 2530.667 357.500 / 357.500 Weight last 48 hrs Weight 74.117 kg Weight 68.946 kg Physical Exam 2 Narrative: General: Alert oriented x3, on 4 L of cannula. Sitting up in bed. HEENT: Normocephalic, atraumatic, EOMI, Cardio: Regular rate rhythm, normal S1-S2, Respiratory: Diminished breath sounds at right base. GI: Abdomen soft, nontender, nondistended, bowel sounds + Extremities: No edema bilateral lower extremities. Data 04/28/25 03:00 04/28/25 03:00 A&P Assessment and plan 1. DNR (do not resuscitate) discussion: 2. Anemia: 3. Metastasis to brain: 4. Sepsis: 5. Seizure: 6. Lung mass: 7. Generalized weakness: 8. Diastolic heart failure: 9. Paraspinal mass: 10. Brain lesion: 11. Thrombocytosis: Plan: #Spiculated lung mass #Brain metastases #Advanced metastatic disease. #Seizure possibly related to above #Sepsis secondary to unknown source possible pneumonia? #History of COPD #DNR status #Hyperlipidemia #Hypertension #Acute anemia, baseline unknown however in 2020 hemoglobin normal. ? Patient takes clonidine at home we will hold that at this time. Hold amlodipine hold Lasix. ? Continue lovastatin ? Continue omeprazole 40 daily ? Patient did receive 2 L normal saline bolus weight-based dosing per sepsis protocol. ? Lactic acid pending ? WBC count 27,000. Agree with broad-spectrum antibiotics ? Will place on vancomycin and Zosyn going forward ? Patient not interested in workup of lung mass at this time. ? Does have evidence of brain metastases. ? Patient did receive Decadron IV in the ER ? I will continue on Keppra 500 twice daily. Loading dose of Keppra given in ER ? Will order dexamethasone 6 mg oral daily ? Did offer patient to see bessemer bottom maker here for possible bronchoscopy with biopsy however he is not interested at this time. ? He would like to be DNR/DNI status. ? Would like to go to nursing facility. ? Check PT OT ? Source of sepsis leukocytosis unknown. Possibly reactive versus true infection. Continue broad-spectrum antibiotics. ? Check urine culture, blood culture, sputum culture Gram stain. ? CT abdomen pelvis reviewed. ? Pain management ? Placed on seizure precautions ? Neurochecks every 2 hours ? Ativan 2 mg IV x 1 if further seizures. - Patient declined to have an MRI head. ? Will consult case management. ? Unclear etiology of leukocytosis at this time. CRP elevated. Check blood cultures ? Check iron studies ? Check FOBT ? Hemoglobin 7.6 at this time. Transfuse for hemoglobin less than 7. ? Check CBC every 12 hours. ? Patient does not have actual source of bleeding. Denies hematochezia hemoptysis. Denies hematuria. DNR/DNI DVT prophylaxis: Heparin SQ twice daily 04/27/2025 Discussed with oncology over the phone. We reviewed patient's lab findings and discussed imaging studies. Check nuclear bone scan, LDH, uric acid, phosphorus, iron studies. Oncology recommends EGD to biopsy esophageal area as there is thickening present. Peripheral blood flow cytometry for leukemia lymphoma panel PCR able Ultrasound or CT-guided biopsy for paraspinal mass Potentially neurosurgical evaluation for brain lesion. Patient will need bronchoscopy/EBUS for biopsy of lesion in lung. We will need to identify primary source of malignancy. Discussed with interventional pulmonology. They plan to take patient for procedure sometime early next week. At this time he has leukocytosis thrombocytosis, infection not completely ruled out. Continue broad-spectrum antibiotics and complete 7-day course I will suspicion patient's leukocytosis reactive versus underlying leukemia. I do not believe this is from an infective source. He does have a history of thrombocytosis and leukocytosis from few years ago as well. It is neutrophil dominant. Possibility of leukemia. Magnesium 1.5 today. Ordered magnesium 4 g daily Had a discussion with patient regarding further management and he would like to pursue diagnostic workup at this time. He states he will decide on further treatment after he is aware of what kind of malignancy he has and what the prognosis may be. He was still like to go to a nursing facility at time of discharge and states he cannot take care of himself at home. PT OT. Continue dexamethasone 6 oral daily x 5 days. Discussed with oncology. Continue Keppra 500 twice daily. 04/28/2025 White count 35,000, hemoglobin 7.4. Patient remains in A-fib with RVR is on Cardizem drip at this time. Started on metoprolol 25 twice daily Secondary to brain metastasis will hold off on anticoagulation. ? DVT prophylaxis held in anticipation of paraspinal mass biopsy today. ? Continue dexamethasone 6 daily. ? Continue vancomycin and Zosyn. Will complete a 7-day course. There does not seem to be an infective source at this point. ? I suspect patient may have some form of leukemia. Lymphoma leukemia profile is pending at this time. ? Peripheral smear is also pending. ? INR 1.38. Bone scan performed today. Result is pending. Echocardiogram ordered by cardiology Cardiology consulted. Appreciate recommendations Will place on aspirin 81 daily. ? Placed on atorvastatin 20 daily. ? Plan for EBUS/bronchoscopy on Thursday ? Plan for paraspinal mass biopsy Thursday. Case management consulted. Working on halfway placement. Patient unsafe to go home alone. PDMP PDMP Reviewed: Not Reviewed Attestations 2 Medical Necessity Statement*: Lung mass workup, A-fib with RVR currently on heparin drip. Diagnoses DNR (do not resuscitate) discussion Z71.89 Anemia D64.9 Metastasis to brain C79.31 Sepsis A41.9 Seizure R56.9 Lung mass R91.8 Generalized weakness R53.1 Diastolic heart failure I50.30 Paraspinal mass R22.2 Brain lesion G93.9 Thrombocytosis D75.839
[2025-04-29] VITALS (19 sets, daily range): BP systolic 125–143; BP diastolic 68–82; PULSE 71–89; RESP 16–30; TEMP 36.6–36.9; O2SAT 94–97
[2025-04-29] MEDS: piperacillin-tazobactam 3.375 GM in sodium chloride 0.9% (plus) 50 ML IV ×3 (02:01→17:38)
--- NOTE | 2025-04-29 02:41 | PC.NURSE ---
Patient converted to sinus with runs of aflutter at a rate between 60-65, Let provider know that the drip was titrated from 5mg to 0 mg per protocol. Physician was okay with this.
[2025-04-29 04:09] LABS: Hematocrit 26.1 % (37-53); Hemoglobin 7.70 g/dL (11.27-16.99); Mean Corpuscular HGB Conc 29.5 g/dL (30-55); Mean Corpuscular Hemoglobin 23.6 pg (27-33); Mean Corpuscular Volume 80.1 fl (82-101); Nucleated Red Blood Cells % 0 %; Platelet Count 573 10^3/cmm (157-399); Red Blood Count 3.26 10^6/uL (3.85-5.65)
[2025-04-29 04:31] LABS: Alanine Aminotransferase 38 U/L (0-41); Albumin Level 2.9 g/dL (3.5-5.2); Alkaline Phosphatase 291 U/L (40-130); Anion Gap 16.2 (5-19); Aspartate Amino Transferase 41 U/L (0-40); Blood Urea Nitrogen 15 mg/dL (8-23); Calcium 9.1 mg/dL (8.5-10.5); Carbon Dioxide 24 mmol/L (22-29); Chloride 105 mmol/L (98-107); Creatinine Clr Calc Pharmacy 83.3512; Globulin 3.6 g/dL (1.3-4.6); Glucose 136 mg/dL (65-115); Magnesium 1.8 mg/dL (1.7-2.3); Osmolality Calculated 295 mOsm/kg (285-295); Potassium 4.2 mmol/L (3.5-5.1); Sodium 141 mmol/L (136-145); Total Protein 6.5 g/dL (6.6-8.7)
[2025-04-29 04:33] LABS: White Blood Count 36.91 10^3/uL (3.29-11.43)
--- NOTE | 2025-04-29 06:34 | P.PN_ITS ---
Subjective 2 Subjective: Seen this morning. Patient comfortable sitting in bed on 4 L of cannula. Sinus rhythm rate controlled at this point. He states he is looking forward to having his procedures done on Thursday. I discussed results of his bone scan with him. He was quite surprised but looking forward to having further diagnostic workup. Vitals/I&O/Wt Last Vital Signs Temp 97.8 F 04/29/25 04:00 Pulse 82 04/29/25 05:58 Resp 20 H 04/29/25 04:00 BP 143/82 04/29/25 04:00 Pulse Ox 94 04/29/25 04:00 O2 Del Method Nasal Cannula 04/29/25 04:00 O2 Flow Rate 2 04/29/25 04:00 04/28/25 04/28/25 04/29/25 14:59 22:59 06:59 Intake Total 657.500 / 999.561 4863 / 2387.500 111.333 / 2498.833 Output Total 300 / 300 200 / 500 400 / 900 Balance 357.500 / 532.144 9589 / 1887.500 -288.667 / 1598.833 Weight last 48 hrs Weight 74.253 kg Weight 74.117 kg Physical Exam 2 Narrative: General: Alert oriented x3, on 4 L of cannula. Sitting up in bed. HEENT: Normocephalic, atraumatic, EOMI, Cardio: Regular rate rhythm, normal S1-S2, Respiratory: Diminished breath sounds at right base. GI: Abdomen soft, nontender, nondistended, bowel sounds + Extremities: No edema bilateral lower extremities. Data 04/29/25 03:37 04/29/25 03:37 A&P Assessment and plan 1. DNR (do not resuscitate) discussion: 2. Anemia: 3. Metastasis to brain: 4. Sepsis: 5. Seizure: 6. Lung mass: 7. Generalized weakness: 8. Diastolic heart failure: 9. Paraspinal mass: 10. Brain lesion: 11. Thrombocytosis: Plan: #Spiculated lung mass #Brain metastases #Advanced metastatic disease. #Seizure possibly related to above #Sepsis secondary to unknown source possible pneumonia? #History of COPD #DNR status #Hyperlipidemia #Hypertension #Acute anemia, baseline unknown however in 2019 hemoglobin normal. ? Patient takes clonidine at home we will hold that at this time. Hold amlodipine hold Lasix. ? Continue lovastatin ? Continue omeprazole 40 daily ? Patient did receive 2 L normal saline bolus weight-based dosing per sepsis protocol. ? Lactic acid pending ? WBC count 27,000. Agree with broad-spectrum antibiotics ? Will place on vancomycin and Zosyn going forward ? Patient not interested in workup of lung mass at this time. ? Does have evidence of brain metastases. ? Patient did receive Decadron IV in the ER ? I will continue on Keppra 500 twice daily. Loading dose of Keppra given in ER ? Will order dexamethasone 6 mg oral daily ? Did offer patient to see gauger delivery here for possible bronchoscopy with biopsy however he is not interested at this time. ? He would like to be DNR/DNI status. ? Would like to go to nursing facility. ? Check PT OT ? Source of sepsis leukocytosis unknown. Possibly reactive versus true infection. Continue broad-spectrum antibiotics. ? Check urine culture, blood culture, sputum culture Gram stain. ? CT abdomen pelvis reviewed. ? Pain management ? Placed on seizure precautions ? Neurochecks every 2 hours ? Ativan 2 mg IV x 1 if further seizures. - Patient declined to have an MRI head. ? Will consult case management. ? Unclear etiology of leukocytosis at this time. CRP elevated. Check blood cultures ? Check iron studies ? Check FOBT ? Hemoglobin 7.6 at this time. Transfuse for hemoglobin less than 7. ? Check CBC every 12 hours. ? Patient does not have actual source of bleeding. Denies hematochezia hemoptysis. Denies hematuria. DNR/DNI DVT prophylaxis: Heparin SQ twice daily 04/27/2025 Discussed with oncology over the phone. We reviewed patient's lab findings and discussed imaging studies. Check nuclear bone scan, LDH, uric acid, phosphorus, iron studies. Oncology recommends EGD to biopsy esophageal area as there is thickening present. Peripheral blood flow cytometry for leukemia lymphoma panel PCR able Ultrasound or CT-guided biopsy for paraspinal mass Potentially neurosurgical evaluation for brain lesion. Patient will need bronchoscopy/EBUS for biopsy of lesion in lung. We will need to identify primary source of malignancy. Discussed with interventional pulmonology. They plan to take patient for procedure sometime early next week. At this time he has leukocytosis thrombocytosis, infection not completely ruled out. Continue broad-spectrum antibiotics and complete 7-day course I will suspicion patient's leukocytosis reactive versus underlying leukemia. I do not believe this is from an infective source. He does have a history of thrombocytosis and leukocytosis from few years ago as well. It is neutrophil dominant. Possibility of leukemia. Magnesium 1.5 today. Ordered magnesium 4 g daily Had a discussion with patient regarding further management and he would like to pursue diagnostic workup at this time. He states he will decide on further treatment after he is aware of what kind of malignancy he has and what the prognosis may be. He was still like to go to a nursing facility at time of discharge and states he cannot take care of himself at home. PT OT. Continue dexamethasone 6 oral daily x 5 days. Discussed with oncology. Continue Keppra 500 twice daily. 04/28/2025 White count 35,000, hemoglobin 7.4. Patient remains in A-fib with RVR is on Cardizem drip at this time. Started on metoprolol 25 twice daily Secondary to brain metastasis will hold off on anticoagulation. ? DVT prophylaxis held in anticipation of paraspinal mass biopsy today. ? Continue dexamethasone 6 daily. ? Continue vancomycin and Zosyn. Will complete a 7-day course. There does not seem to be an infective source at this point. ? I suspect patient may have some form of leukemia. Lymphoma leukemia profile is pending at this time. ? Peripheral smear is also pending. ? INR 1.38. Bone scan performed today. Result is pending. Echocardiogram ordered by cardiology Cardiology consulted. Appreciate recommendations Will place on aspirin 81 daily. ? Placed on atorvastatin 20 daily. ? Plan for EBUS/bronchoscopy on Thursday ? Plan for paraspinal mass biopsy Thursday. Case management consulted. Working on senior living placement. Patient unsafe to go home alone. 04/29/2025 White count 36,000. No bandemia. Neutrophilia present. Peripheral blood smear pending. Other order ordered tests are pending as well. Patient declined to have paraspinal mass biopsy yesterday on Thursday and stated that he would like to have it done Thursday instead. Informed radiology department. ? Will restart DVT prophylaxis heparin 5000 SQ twice daily for now. This needs to be held 12 hours prior to biopsy for Thursday. ? Tentatively plan for bronchoscopy on Thursday. Follow-up with interventional pulmonology for exact timeframe and schedule for this. This has been planned for Thursday/Cindy since patient was in active A-fib with RVR. Heart rate is getting controlled now. He is normal sinus rhythm. In anticipation of biopsy and bronchoscopy he had evidence of brain metastases we will hold off on any kind of anticoagulation at this time. Patient aware of risks of stroke with underlying A-fib. ? Continue atorvastatin 20 daily, echo pending ? Cardiology consulted appreciate recommendations ? Leukemia lymphoma profile pending as well. ? Continue metoprolol 25 twice daily ? Eventually plan is for the patient to be discharged to nursing facility. Case management working on this. ? Patient does not have any evidence of infection and has been afebrile since admission. He has been on vancomycin and Zosyn broad-spectrum. I would empirically complete 7-day course. I believe his white count is from a combination of dexamethasone that he is receiving daily along with possible underlying leukemia. I suspect CLL. Patient will complete 7-day of antibiotic regimen on May 02. We may consider stopping at day 5 however I do not have results of his peripheral blood smear at this time. ?Bone scan did show several punctate foci of low-grade uptake within the ribs bilaterally may be due to healing rib fractures but metastatic disease not entirely excluded. Area of increased uptake in proximal right femoral shaft suspicious for metastatic disease. Recommend correlation with right femur radiographs. ? Will order femur x-rays today. ? Patient will likely need PET scan as well going forward. ? I had another discussion with him today regarding further care and management. He states he would like complete diagnostic workup before making any decisions which I think is very reasonable. I did indicate to him that it seems that his metastatic disease may have spread to the bones. He was surprised however stated that lets see what happens . ? Does not complain of pain. Is quite comfortable. ? Continue to monitor at this time. -Lastly of note patient's labs and imaging findings were discussed with our oncologist over the phone on 04/27. They would like to follow-up with him in clinic as soon as he is discharged from the hospital after all biopsies have been obtained. ? Discussed with him that we will stop dexamethasone at day 5. Last 18 April 2021. PDMP PDMP Reviewed: Not Reviewed Attestations 2 Medical Necessity Statement*: Lung mass workup, A-fib Diagnoses DNR (do not resuscitate) discussion Z71.89 Anemia D64.9 Metastasis to brain C79.31 Sepsis A41.9 Seizure R56.9 Lung mass R91.8 Generalized weakness R53.1 Diastolic heart failure I50.30 Paraspinal mass R22.2 Brain lesion G93.9 Thrombocytosis D75.839
[2025-04-29] MEDS: multivitamin therapeutic Tablet 1 TAB PO (08:34)
[2025-04-29] MEDS: dorzolamide 2% Op Soln 10 mL Btl 1 DROP EYE-BOTH ×2 (08:39→17:38)
--- NOTE | 2025-04-29 08:54 | P.PN_ITS ---
Subjective 2 Subjective: The patient is doing okay. Telemetry shows intermittent atrial flutter/sinus rhythm. Normal vitals are stable. He is on Cardizem and metoprolol. No fever or chills. No cough. Medications: Medication Review Details: Current Medications Acetaminophen (Acetaminophen 325 Mg Tablet) 650 mg PO Q6H PRN PRN Reason: Mild/Mod Pain Or Temp >/= 101 Aspirin (Aspirin 81 Mg Ec Tablet) 81 mg PO DAILY [facility] Last Admin: 04/29/25 08:34 Dose: 81 mg Atorvastatin Calcium (Atorvastatin 40 Mg Tablet) 20 mg PO DAILY [facility] Last Admin: 04/29/25 08:34 Dose: 20 mg Dexamethasone (Dexamethasone 4 Mg Tablet) 6 mg PO DAILY [facility] Last Admin: 04/29/25 08:34 Dose: 6 mg Dorzolamide HCl (Dorzolamide 2% Op Soln 10 Ml Btl) 1 drop EYE-BOTH BID [facility] Last Admin: 04/29/25 08:39 Dose: 1 drop Heparin Sodium (Porcine) (Heparin 5,000 Unit/Ml Inj 1 Ml) 5,000 unit SUBCUT Q12H [facility] On Hold: 04/27/25 15:20 Last Admin: 04/27/25 14:20 Dose: 5,000 unit Sodium Chloride (Sodium Chloride 0.9%) 1,000 mls @ 75 mls/hr IV .[id number] [facility] Last Admin: 04/28/25 20:15 Dose: 75 mls/hr Piperacillin Sod/Tazobactam (Sod 3.375 gm/ Sodium Chloride) 50 mls @ 12.5 mls/hr IV Q8H [facility] Last Infusion: 04/29/25 06:13 Dose: Infused Diltiazem HCl 100 mg/ Sodium (Chloride) 100 mls @ 0 mls/hr IV .Q0M [facility]; Protocol Last Titration: 04/29/25 02:36 Dose: 0 mg/hr, 0 mls/hr Vancomycin HCl (Vancocin) 1,250 mg in 250 mls @ 200 mls/hr IV Q12H [facility] Last Titration: 04/29/25 07:44 Dose: 0 mls/hr Levalbuterol HCl (Levalbuterol 0.63 Mg/3 Ml Neb) 0.63 mg INHALATION Q6H.RESP [facility] Last Admin: 04/29/25 08:41 Dose: 0.63 mg Levetiracetam (Levetiracetam 500 Mg/5 Ml Udc) 500 mg PO BID [facility] Last Admin: 04/29/25 08:33 Dose: 500 mg Metoprolol Tartrate (Metoprolol Tartrate 25 Mg Tablet) 25 mg PO BID@0900,2100 [facility] Last Admin: 04/29/25 08:34 Dose: 25 mg Multivitamins Therapeutic (Multivitamin Therapeutic Tablet) 1 tab PO DAILY [facility] Last Admin: 04/29/25 08:34 Dose: 1 tab Ondansetron HCl (Ondansetron 2 Mg/Ml Sdv 2 Ml) 4 mg IVP Q8H PRN PRN Reason: vomiting, or N/V if npo Pantoprazole Sodium (Pantoprazole Dr 40 Mg Tablet) 40 mg PO DAILY [facility] Last Admin: 04/29/25 08:34 Dose: 40 mg Vitals/I&O/Wt Last Vital Signs Temp 98.0 F 04/29/25 07:34 Pulse 89 04/29/25 08:00 Resp 16 04/29/25 08:00 BP 125/76 04/29/25 07:34 Pulse Ox 96 04/29/25 08:00 O2 Del Method Nasal Cannula 04/29/25 08:00 O2 Flow Rate 4 04/29/25 08:00 04/28/25 04/29/25 04/29/25 22:59 06:59 14:59 Intake Total 1730 / 2387.500 111.333 / 2498.833 250 / 250 Output Total 200 / 500 400 / 900 Balance 1530 / 1887.500 -288.667 / 1598.833 250 / 250 Weight last 48 hrs Weight 163 lb 11.2 oz Weight 163 lb 6.4 oz Physical Exam 2 Narrative: GENERAL: The patient is alert and oriented times three. Not in any acute distress. HEENT: No significant pallor, icterus or lymphadenopathy.Oral cavity: There are no mucous membrane lesions. NECK: Trachea appears to be central. No masses noted. No JVD or thyromegaly appreciated. RESPIRATORY: Chest is symmetrical. No intercostals muscle retraction or any accessory muscle activation. He has some vague chest wall tenderness. Breath sounds are heard bilaterally. No rales or rhonchi heard. No evidence of any consolidation. BREASTS: Deferred. HEART: The heart sounds are normal. No S3 or S4. No significant murmurs. No pericardial rub ABDOMEN: No vessel pulsations or distention. No tenderness. No organomegaly appreciated. Bowel sounds are normally heard. : Deferred. RECTAL: Deferred. LYMPHATIC: No lymphadenopathy noted in the neck. EXTREMITIES: No edema or cyanosis. No clubbing. MUSCULOSKELETAL: No acute joint deformities or swelling SKIN: There are no significant rashes or ecchymosis NEUROPSYCHIATRIC: The patient is alert and oriented x3. Appears to be in a good mood. No tremors or rigidity noted. Data 04/29/25 03:37 04/29/25 03:37 Other Labs: Laboratory Last Values WBC 36.91 10^3/uL (3.29-11.43) H* 04/29/25 03:37 RBC 3.26 10^6/uL (3.85-5.65) L 04/29/25 03:37 Hgb 7.70 g/dL (11.27-16.99) L 04/29/25 03:37 Hct 26.1 % (37-53) L 04/29/25 03:37 MCV 80.1 fl (82-101) L 04/29/25 03:37 MCH 23.6 pg (27-33) L 04/29/25 03:37 MCHC 29.5 g/dL (30-55) L 04/29/25 03:37 RDW 18.3 % (12.1-15.1) H 04/29/25 03:37 Plt Count 573 10^3/cmm (157-399) H 04/29/25 03:37 MPV 9.8 fL (7.4-10.4) 04/29/25 03:37 Neut % (Auto) 93.0 % 04/29/25 03:37 Lymph % (Auto) 2.0 % 04/29/25 03:37 [place] % (Auto) 3.3 % 04/29/25 03:37 Eos % (Auto) 0.0 % 04/29/25 03:37 Baso % (Auto) 0.2 % 04/29/25 03:37 Neut # (Auto) 34.31 10^3/uL (1.8-7.7) H 04/29/25 03:37 Lymph # (Auto) 0.8 10^3/uL (0.8-4.8) 04/29/25 03:37 [place] # (Auto) 1.2 10^3/uL (0.2-0.9) H 04/29/25 03:37 Eos # (Auto) 0.0 10^3/uL (0.0-0.8) 04/29/25 03:37 Baso # (Auto) 0.1 10^3/uL (0.0-0.1) 04/29/25 03:37 Nucleated RBC % (auto) 0 % 04/29/25 03:37 Nucleated RBCs # 0.0 /100WBC 04/29/25 03:37 Peripher Smr Path Cons Sent for review 04/27/25 05:35 PT 17.90 SECONDS (12.1-14.9) H 04/28/25 08:18 INR 1.38 (0.8-1.2) H 04/28/25 08:18 D-Dimer 1.31 ug/mLFEU (0-0.59) H 04/26/25 09:41 Specimen Type Arterial 04/26/25 10:04 Sample Site Brachial, left 04/26/25 10:04 ABG pH 7.51 (7.35-7.45) H 04/26/25 10:04 ABG pCO2 34.1 mmHg (35-45) L 04/26/25 10:04 ABG pO2 80.3 mmHg (80.0-100.0) 04/26/25 10:04 ABG HCO3 26.9 mmol/L (22-26) H 04/26/25 10:04 ABG O2 Saturation 97.3 04/26/25 10:04 ABG Base Excess 3.6 mmol/L (-2.0-2.0) H 04/26/25 10:04 Abad Test Pos 04/26/25 10:04 A-a O2 Gradient 3.4 mmHg (5-10) L 04/26/25 10:04 Hematocrit 21.6 % (42-52) L 04/26/25 10:04 Hgb O2 Saturation 96.2 % (95-100) 04/26/25 10:04 Carboxyhemoglobin 1.2 %THgb (0.4-20.1) 04/26/25 10:04 Methemoglobin < 0.0 % (0.4-1.5) L 04/26/25 10:04 Total Hemoglobin 7.1 g/dL (14-18) L 04/26/25 10:04 Sodium 132.0 mmol/L (131-143) 04/26/25 10:04 Potassium 3.6 mmol/L (3.5-5.0) 04/26/25 10:04 Glucose 124.0 mg/dL (70-115) H 04/26/25 10:04 Ionized Calcium 1.2 mmol/L (1.1-1.4) 04/26/25 10:04 O2 Delivery Device Nc 04/26/25 10:04 O2 Liters/Min 4.0 % 04/26/25 10:04 Bottling Line Operator ID [place] 04/26/25 10:04 Sodium 141 mmol/L (136-145) 04/29/25 03:37 Potassium 4.2 mmol/L (3.5-5.1) 04/29/25 03:37 Chloride 105 mmol/L (98-107) 04/29/25 03:37 Carbon Dioxide 24 mmol/L (22-29) 04/29/25 03:37 Anion Gap 16.2 (5-19) 04/29/25 03:37 BUN 15 mg/dL (8-23) 04/29/25 03:37 Creatinine 0.6 mg/dL (0.7-1.2) L 04/29/25 03:37 GFR Calculation Not Reportable 04/29/25 03:37 Glucose 136 mg/dL (65-115) H 04/29/25 03:37 Estimat Average Glucose 128 04/26/25 09:41 Hemoglobin A1c 6.1 % (4.0-6.0) H 04/26/25 09:41 Calculated Osmolality 295 mOsm/kg (285-295) 04/29/25 03:37 Lactic Acid 2.2 mmol/L (0.5-2.2) 04/26/25 09:41 Lactic Acid (Sepsis) 0.8 mmol/L (0.5-2.2) 04/26/25 14:35 Uric Acid 2.7 mg/dL (3.4-7.0) L 04/27/25 05:35 Calcium 9.1 mg/dL (8.5-10.5) 04/29/25 03:37 Phosphorus 3.8 mg/dL (2.5-4.5) 04/27/25 05:35 Magnesium 1.8 mg/dL (1.7-2.3) 04/29/25 03:37 Iron 13 ug/dL (59-158) L 04/26/25 12:02 TIBC 112 mcg/dl 04/26/25 12:02 % Saturation 11.6 % (20-50) L 04/26/25 12:02 Unsat Iron Binding 99 ug/dL (112-347) L 04/26/25 12:02 Ferritin 985 ng/mL (30-400) H 04/26/25 12:02 Total Bilirubin 0.4 mg/dL (0.15-1.2) 04/29/25 03:37 AST 41 U/L (0-40) H 04/29/25 03:37 ALT 38 U/L (0-41) 04/29/25 03:37 Alkaline Phosphatase 291 U/L (40-130) H 04/29/25 03:37 Lactate Dehydrogenase 196 U/L (135-225) 04/27/25 05:35 Troponin T Baseline 48 ng/L (0-15) H 04/26/25 09:41 Troponin T 120 Minute 39.79 ng/L (0-15) H 04/26/25 12:02 Delta Troponin T -8.21 ABS# (0-10) L 04/26/25 12:02 Troponin T Hi Sens 6Hr 37.11 ng/L (0-15) H 04/26/25 15:38 Troponin T Hi Sens 6Hr Delta -10.89 ng/L (0-12) L 04/26/25 15:38 C-Reactive Protein 234.8 mg/L (0.0-4.9) H 04/26/25 09:41 NT-Pro-B Natriuret Pep 886 pg/mL (0-450) H 04/26/25 09:41 Total Protein 6.5 g/dL (6.6-8.7) L 04/29/25 03:37 Albumin 2.9 g/dL (3.5-5.2) L 04/29/25 03:37 Globulin 3.6 g/dL (1.3-4.6) 04/29/25 03:37 Procalcitonin 0.38 ng/mL (0-0.5) 04/26/25 12:02 TSH 1.19 uIU/mL (0.27-4.20) 04/26/25 12:02 Urine Color Dark yellow (Yellow) A 04/26/25 11:04 Urine Appearance Clear (CLEAR) 04/26/25 11:04 Urine pH 6.5 (5-7) 04/26/25 11:04 Ur Specific [place] 1.016 (1.005-1.030) 04/26/25 11:04 Urine Protein Trace (Negative) A 04/26/25 11:04 Urine Glucose (UA) Negative (Normal) 04/26/25 11:04 Urine Ketones 1+ (Negative) H 04/26/25 11:04 Urine Blood Negative (Negative) 04/26/25 11:04 Urine Nitrate Negative (Negative) 04/26/25 11:04 Urine Bilirubin Negative (Negative) 04/26/25 11:04 Urine Urobilinogen >=8.0 mg/dL (Negative) H 04/26/25 11:04 Ur Leukocyte Esterase Negative (Negative) 04/26/25 11:04 Urine RBC 0-2 /hpf (0-2) 04/26/25 11:04 Urine WBC 0-5 /hpf (0-5) 04/26/25 11:04 Ur Squamous Epith Cells 0-5 /hpf (0-5) 04/26/25 11:04 Calcium Oxalate Crystal 0-4 /hpf H 04/26/25 11:04 Amorphous Sediment Not Reportable 04/26/25 11:04 Urine Bacteria None seen /hpf (NONE) 04/26/25 11:04 Hyaline Casts 3.71 /lpf 04/26/25 11:04 Vancomycin Trough 20.9 ug/mL (10-15) H 04/28/25 15:03 Lymphoma Panel Cancelled 04/27/25 05:35 Blood Type A Positive 04/26/25 10:23 Rho(D) Type Rh positive 04/26/25 10:23 Antibody Screen Negative 04/26/25 10:23 Crossmatch See Detail 04/26/25 10:23 Other data: Echocardiogram from today Normal left ventricular size and systolic function, EF 71%. Abnormal septal motion consistent with conduction abnormality. Mildly increased right ventricular size. Normal right ventricular systolic function. Mildly increased right atrial size. Rounded echolucent structure in the right atrial area possibly outside the atrium, only visualized in the subcostal view. Mildly dilated left atrium . Mild mitral valve regurgitation. Thickened aortic valve. Mild eccentric tricuspid regurgitation. Estimated pulmonary artery peak systolic pressure 57 mmHg- moderate pulmonary hypertension Possible round structure outside the right atrium, consider lung lesion No obvious intracardiac masses. There is no pericardial effusion. No similar previous studies are available for comparison A&P Assessment and plan 1. Atrial fibrillation with rapid ventricular response: Because of intermittent sinus rhythm/atrial flutter, I may start the patient on Betapace. Will discontinue the metoprolol. Other medication may be continued. Because of the metastatic brain lesions and the anemia, we will hold off on the anticoagulation. 2. Metastasis to brain: Has not had a recurrence of seizures. No neurological deficits at this point. 3. Anemia, unspecified type: Possibly from the metastatic CA. Workup is in progress 4. Sepsis, due to unspecified organism, unspecified whether acute organ dysfunction present: Workup and management as per the primary 5. Lung mass: Possibly the primary tumor. Patient seems to be interested in further workup even though he refused relative years ago. Plan: Patient had echocardiogram today. His LV ejection fraction was normal. Mild biatrial enlargement. Details as mentioned above. Betapace 80 mg p.o. now and twice daily. He has a QTc is within normal limits. Daily EKG x 3 Continue other measures Based on the clinical progress, further recommendations will be made PDMP PDMP Reviewed: Not Reviewed Attestations 2 Medical Necessity Statement*: Patient requires continued hospital stay for close monitoring and further management Coding Level of Care Code 65857 Diagnoses Atrial fibrillation with rapid ventricular response I48.91 Metastasis to brain C79.31 Anemia, unspecified type D64.9 Anemia type: unspecified type Sepsis, due to unspecified organism, unspecified whether acute organ dysfunction present A41.9 Sepsis acute organ dysfunction status: unspecified Sepsis type: sepsis due to unspecified organism Lung mass R91.8
--- NOTE | 2025-04-29 11:08 | ECG_ITS ---
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 Measurements Intervals [place] Rate: 82 P: 0 AK: 0 QRS: -51 QRSD: 146 T: -5 QT: 378 QTc: 444 Interpretive Statements ATRIAL FLUTTER/TACHYCARDIA LEFT AXIS DEVIATION [QRS AXIS < -30] RIGHT BUNDLE BRANCH BLOCK [120+ ms QRS DURATION, UPRIGHT V1, 40+ ms S IN I/aVL/V4/V5/V6] Compared to ECG 04/27/2025 11:15:10 Ventricular premature complex(es) no longer present Aberrant conduction of supraventricular beat(s) no longer present T-wave abnormality no longer present Possible ischemia no longer present Electronically Signed On 04-29-2025 14:04:46 CDT by Waldo Mendez M.D. [email or web address]
--- NOTE | 2025-04-29 14:21 | USCV_ITS ---
Miguel Castillo Age: 75 Gender: M : 1950 Exam Date: 04/29/2025 08:59 Ordering Phys: Waldo Mendez MD ([email or web address]) Technologist: Farhat Sims [place] [facility] [place]ication: afib/ chf BP: 125 / 76 HR: 81 Rhythm: Sinus Technical Quality: Adequate MEASUREMENTS (Male / Female) Normal Values 2D ECHO LV Diastolic Diameter PLAX 5.3 cm 4.2 - 5.9 / 3.9 - 5.3 cm IVS Diastolic Thickness 1.1 cm 0.6 - 1.0 / 0.6 - 0.9 cm IVS Systolic Thickness 1.3 cm LVPW Diastolic Thickness 1.4 cm 0.6 - 1.0 / 0.6 - 0.9 cm LVPW Systolic Thickness 1.8 cm LVOT Diameter 2.0 cm LV Ejection Fraction 2D Teich 59.1 % LV Ejection Fraction MOD 4C 79.6 % LV Ejection Fraction MOD 2C 71.7 % LV Ejection Fraction 2C AL 72.8 % LA Diameter 4.2 cm RA Systolic Volume 4C AL 78.4 ml RA Systolic Volume 4C MOD 77.8 ml LA Sys Volume AL 73.9 cm cubed LA Sys Volume Index AL 38.2 cm cubed/m squared Aorta at Sinotubular Diameter 2.8 cm M-MODE LA Ao Ratio MM 1.7 AV Cusp Separation MM 1.5 cm DOPPLER AV Peak Velocity 94.0 cm/s LVOT Peak Velocity 79.0 cm/s AV Area Cont Eq vti 2.9 cm squared AV Area Cont Eq pk 2.8 cm squared MV Peak Velocity 103.0 cm/s MV Area PHT 7.3 cm squared Mitral E to A Ratio 1.5 TV Peak Velocity 357.5 cm/s TR Peak Velocity 366.0 cm/s TR Peak Gradient 53.6 mmHg TR Mean Velocity 323.0 cm/s TR Mean Gradient 42.6 mmHg TR Velocity Time Integral 116.1 cm PV Peak Velocity 158.0 cm/s RV Ejection Time 0.3 s FINDINGS Left Ventricle Normal left ventricular size and systolic function, EF 71%. Abnormal septal motion consistent with conduction abnormality. Right Ventricle Mildly increased right ventricular size. Normal right ventricular systolic function. Right Atrium Mildly increased right atrial size. Rounded echolucent structure in the right atrial area possibly outside the atrium, only visualized in the subcostal view Left Atrium Mildly dilated Mitral Valve Mild mitral valve regurgitation. Aortic Valve Thickened aortic valve. Tricuspid Valve Mild eccentric tricuspid regurgitation. Pulmonic Valve Pulmonic valve not well visualized. Pericardium No pericardial effusion. Aorta Normal aortic annulus size. IVC Normal inferior vena cava. CONCLUSIONS Normal left ventricular size and systolic function, EF 71%. Abnormal septal motion consistent with conduction abnormality. Mildly increased right ventricular size. Normal right ventricular systolic function. Mildly increased right atrial size. Rounded echolucent structure in the right atrial area possibly outside the atrium, only visualized in the subcostal view. Mildly dilated left atrium . Mild mitral valve regurgitation. Thickened aortic valve. Mild eccentric tricuspid regurgitation. Estimated pulmonary artery peak systolic pressure 57 mmHg- moderate pulmonary hypertension Possible round structure outside the right atrium, consider lung lesion No obvious intracardiac masses. There is no pericardial effusion. No similar previous studies are available for comparison Dr Waldo Mendez MD [facility] (Electronically Signed) Final Date: 29 April 2025 13:18 S
--- NOTE | 2025-04-29 23:28 | ECG_ITS ---
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 Measurements Intervals [place] Rate: 81 P: 119 [place]: 147 QRS: -50 QRSD: 140 T: 2 QT: 368 QTc: 428 Interpretive Statements possible atrial flutter with fixed AV block LEFT AXIS DEVIATION [QRS AXIS < -30] RIGHT BUNDLE BRANCH BLOCK [120+ ms QRS DURATION, UPRIGHT V1, 40+ ms S IN I/aVL/V4/V5/V6] INTERPRETATION BASED ON A DEFAULT AGE OF 40 YEARS Compared to ECG 04/29/2025 11:08:10 Atrial flutter no longer present Electronically Signed On 04-30-2025 18:39:24 CDT by Waldo Mendez M.D. [id number]
[2025-04-30] VITALS (11 sets, daily range): BP systolic 135–139; BP diastolic 71–81; PULSE 62–85; RESP 15–26; TEMP 36.5–36.7; O2SAT 94–97
[2025-04-30] MEDS: piperacillin-tazobactam 3.375 GM in sodium chloride 0.9% (plus) 50 ML IV ×3 (02:31→17:25)
[2025-04-30 04:55] LABS: Hematocrit 28.1 % (37-53); Hemoglobin 8.50 g/dL (11.27-16.99); Mean Corpuscular HGB Conc 30.2 g/dL (30-55); Mean Corpuscular Hemoglobin 24.2 pg (27-33); Mean Corpuscular Volume 80.1 fl (82-101); Nucleated Red Blood Cells % 0 %; Platelet Count 576 10^3/cmm (157-399); Red Blood Count 3.51 10^6/uL (3.85-5.65)
[2025-04-30 05:09] LABS: Anion Gap 12.7 (5-19); Blood Urea Nitrogen 16 mg/dL (8-23); Calcium 9.2 mg/dL (8.5-10.5); Carbon Dioxide 27 mmol/L (22-29); Chloride 102 mmol/L (98-107); Creatinine Clr Calc Pharmacy 83.4107; Glucose 131 mg/dL (65-115); Magnesium 1.7 mg/dL (1.7-2.3); Osmolality Calculated 287 mOsm/kg (285-295); Potassium 4.7 mmol/L (3.5-5.1); Sodium 137 mmol/L (136-145)
[2025-04-30 05:11] LABS: White Blood Count 39.82 10^3/uL (3.29-11.43)
[2025-04-30 05:16] LABS: BCR ABL1 (IS) 0.000 (0.000); BCR ABL1/ALB1 % 0.000 (0.000); P190 BCR ALB1 NOT DETECTED; P190 BCR ALB1 Yes Test Yes; P210 BCR ALB1 NOT DETECTED; P210 BCR ALB1 Yes Test Yes
--- NOTE | 2025-04-30 07:00 | ECG_ITS ---
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 Measurements Intervals [place] Rate: 79 P: 0 [place]: 0 QRS: -51 QRSD: 142 T: -26 QT: 408 QTc: 468 Interpretive Statements ATRIAL FLUTTER/TACHYCARDIA WITH ABERRANT CONDUCTION OR VENTRICULAR PREMATURE COMPLEXES LEFT AXIS DEVIATION [QRS AXIS < -30] RIGHT BUNDLE BRANCH BLOCK [120+ ms QRS DURATION, UPRIGHT V1, 40+ ms S IN I/aVL/V4/V5/V6] MODERATE T-WAVE ABNORMALITY, CONSIDER INFERIOR ISCHEMIA [-0.1+ mV T-WAVE IN II/aVF] Compared to ECG 04/29/2025 23:28:25 Ventricular premature complex(es) now present. Aberrant conduction of supraventricular beat(s) now present. T-wave abnormality now present Possible ischemia now present. Sinus rhythm no longer present Electronically Signed On 04-30-2025 18:38:50 CDT by Waldo Mendez M.D. [id number]
[2025-04-30] MEDS: multivitamin therapeutic Tablet 1 TAB PO (08:51)
[2025-04-30] MEDS: dorzolamide 2% Op Soln 10 mL Btl 1 DROP EYE-BOTH ×2 (08:53→17:24)
--- NOTE | 2025-04-30 09:35 | PM.PN ---
Subjective Subjective: The patient is feeling okay. Telemetry shows atrial flutter with variable block. EKG from this morning revealed a QTc of 468. This is essentially unchanged. Medications: Medication Review Details: Current Medications Acetaminophen (Acetaminophen 325 Mg Tablet) 650 mg PO Q6H PRN PRN Reason: Mild/Mod Pain Or Temp >/= 101 Aspirin (Aspirin 81 Mg Ec Tablet) 81 mg PO DAILY [facility] Last Admin: 04/30/25 08:50 Dose: 81 mg Atorvastatin Calcium (Atorvastatin 40 Mg Tablet) 20 mg PO DAILY [facility] Last Admin: 04/30/25 08:50 Dose: 20 mg Dexamethasone (Dexamethasone 4 Mg Tablet) 6 mg PO DAILY [facility] Stop: 05/01/25 21:01 Last Admin: 04/30/25 08:51 Dose: 6 mg Dorzolamide HCl (Dorzolamide 2% Op Soln 10 Ml Btl) 1 drop EYE-BOTH BID [facility] Last Admin: 04/30/25 08:53 Dose: 1 drop Heparin Sodium (Porcine) (Heparin 5,000 Unit/Ml Inj 1 Ml) 5,000 unit SUBCUT Q12H [facility] On Hold: 04/27/25 15:20 Last Admin: 04/27/25 14:20 Dose: 5,000 unit Piperacillin Sod/Tazobactam (Sod 3.375 gm/ Sodium Chloride) 50 mls @ 12.5 mls/hr IV Q8H [facility] Last Infusion: 04/30/25 09:05 Dose: Infused Vancomycin HCl (Vancocin) 1,250 mg in 250 mls @ 200 mls/hr IV Q12H [facility] Last Infusion: 04/30/25 09:05 Dose: Infused Levalbuterol HCl (Levalbuterol 0.63 Mg/3 Ml Neb) 0.63 mg INHALATION Q6H.RESP [facility] Last Admin: 04/30/25 07:57 Dose: 0.63 mg Levetiracetam (Levetiracetam 500 Mg/5 Ml Udc) 500 mg PO BID [facility] Last Admin: 04/30/25 08:51 Dose: 500 mg Multivitamins Therapeutic (Multivitamin Therapeutic Tablet) 1 tab PO DAILY [facility] Last Admin: 04/30/25 08:51 Dose: 1 tab Ondansetron HCl (Ondansetron 2 Mg/Ml Sdv 2 Ml) 4 mg IVP Q8H PRN PRN Reason: vomiting, or N/V if npo Pantoprazole Sodium (Pantoprazole Dr 40 Mg Tablet) 40 mg PO DAILY [facility] Last Admin: 04/30/25 08:51 Dose: 40 mg Sotalol HCl (Sotalol 80 Mg Tablet) 80 mg PO BID@0900,2100 [facility] Last Admin: 04/30/25 08:50 Dose: 80 mg Vitals/I&O/Wt Last Vital Signs Temp 97.7 F 04/30/25 07:36 Pulse 81 04/30/25 08:00 Resp 17 04/30/25 08:00 BP 135/75 04/30/25 07:36 Pulse Ox 95 04/30/25 08:00 O2 Del Method Nasal Cannula 04/30/25 08:00 O2 Flow Rate 4 04/30/25 08:00 04/29/25 04/30/25 04/30/25 22:59 06:59 14:59 Intake Total 830 / 1080 540 / 540 Output Total 500 / 1400 850 / 2250 200 / 200 Balance 330 / -320 -850 / -1170 340 / 340 Weight last 48 hrs Weight 163 lb 6.4 oz Weight 163 lb 11.2 oz Physical Exam Narrative: GENERAL: The patient is alert and oriented times three. Not in any acute distress. HEENT: No significant pallor, icterus or lymphadenopathy.Oral cavity: There are no mucous membrane lesions. NECK: Trachea appears to be central. No masses noted. No JVD or thyromegaly appreciated. RESPIRATORY: Chest is symmetrical. No intercostals muscle retraction or any accessory muscle activation. He has some vague chest wall tenderness. Breath sounds are heard bilaterally. No rales or rhonchi heard. No evidence of any consolidation. BREASTS: Deferred. HEART: The heart sounds are normal. No S3 or S4. No significant murmurs. No pericardial rub ABDOMEN: No vessel pulsations or distention. No tenderness. No organomegaly appreciated. Bowel sounds are normally heard. : Deferred. RECTAL: Deferred. LYMPHATIC: No lymphadenopathy noted in the neck. EXTREMITIES: No edema or cyanosis. No clubbing. MUSCULOSKELETAL: No acute joint deformities or swelling SKIN: There are no significant rashes or ecchymosis NEUROPSYCHIATRIC: The patient is alert and oriented x3. Appears to be in a good mood. No tremors or rigidity noted. Data 04/30/25 04:47 04/30/25 04:47 Other Labs: Laboratory Last Values WBC 39.82 10^3/uL (3.29-11.43) H* 04/30/25 04:47 RBC 3.51 10^6/uL (3.85-5.65) L 04/30/25 04:47 Hgb 8.50 g/dL (11.27-16.99) L 04/30/25 04:47 Hct 28.1 % (37-53) L 04/30/25 04:47 MCV 80.1 fl (82-101) L 04/30/25 04:47 MCH 24.2 pg (27-33) L 04/30/25 04:47 MCHC 30.2 g/dL (30-55) 04/30/25 04:47 RDW 18.8 % (12.1-15.1) H 04/30/25 04:47 Plt Count 576 10^3/cmm (157-399) H 04/30/25 04:47 MPV 9.8 fL (7.4-10.4) 04/30/25 04:47 Neut % (Auto) 91.8 % 04/30/25 04:47 Lymph % (Auto) 2.2 % 04/30/25 04:47 [place] % (Auto) 3.5 % 04/30/25 04:47 Eos % (Auto) 0.0 % 04/30/25 04:47 Baso % (Auto) 0.2 % 04/30/25 04:47 Neut # (Auto) 36.54 10^3/uL (1.8-7.7) H 04/30/25 04:47 Lymph # (Auto) 0.9 10^3/uL (0.8-4.8) 04/30/25 04:47 [place] # (Auto) 1.4 10^3/uL (0.2-0.9) H 04/30/25 04:47 Eos # (Auto) 0.0 10^3/uL (0.0-0.8) 04/30/25 04:47 Baso # (Auto) 0.1 10^3/uL (0.0-0.1) 04/30/25 04:47 Nucleated RBC % (auto) 0 % 04/30/25 04:47 Nucleated RBCs # 0.0 /100WBC 04/30/25 04:47 Peripher Smr Path Cons Sent for review 04/27/25 05:35 PT 17.90 SECONDS (12.1-14.9) H 04/28/25 08:18 INR 1.38 (0.8-1.2) H 04/28/25 08:18 D-Dimer 1.31 ug/mLFEU (0-0.59) H 04/26/25 09:41 Specimen Type Arterial 04/26/25 10:04 Sample Site Brachial, left 04/26/25 10:04 ABG pH 7.51 (7.35-7.45) H 04/26/25 10:04 ABG pCO2 34.1 mmHg (35-45) L 04/26/25 10:04 ABG pO2 80.3 mmHg (80.0-100.0) 04/26/25 10:04 ABG HCO3 26.9 mmol/L (22-26) H 04/26/25 10:04 ABG O2 Saturation 97.3 04/26/25 10:04 ABG Base Excess 3.6 mmol/L (-2.0-2.0) H 04/26/25 10:04 Abad Test Pos 04/26/25 10:04 A-a O2 Gradient 3.4 mmHg (5-10) L 04/26/25 10:04 Hematocrit 21.6 % (42-52) L 04/26/25 10:04 Hgb O2 Saturation 96.2 % (95-100) 04/26/25 10:04 Carboxyhemoglobin 1.2 %THgb (0.4-20.1) 04/26/25 10:04 Methemoglobin < 0.0 % (0.4-1.5) L 04/26/25 10:04 Total Hemoglobin 7.1 g/dL (14-18) L 04/26/25 10:04 Sodium 132.0 mmol/L (131-143) 04/26/25 10:04 Potassium 3.6 mmol/L (3.5-5.0) 04/26/25 10:04 Glucose 124.0 mg/dL (70-115) H 04/26/25 10:04 Ionized Calcium 1.2 mmol/L (1.1-1.4) 04/26/25 10:04 O2 Delivery Device Nc 04/26/25 10:04 O2 Liters/Min 4.0 % 04/26/25 10:04 Road Test Examiner ID Katharine 04/26/25 10:04 Sodium 137 mmol/L (136-145) 04/30/25 04:47 Potassium 4.7 mmol/L (3.5-5.1) 04/30/25 04:47 Chloride 102 mmol/L (98-107) 04/30/25 04:47 Carbon Dioxide 27 mmol/L (22-29) 04/30/25 04:47 Anion Gap 12.7 (5-19) 04/30/25 04:47 BUN 16 mg/dL (8-23) 04/30/25 04:47 Creatinine 0.6 mg/dL (0.7-1.2) L 04/30/25 04:47 GFR Calculation Not Reportable 04/30/25 04:47 Glucose 131 mg/dL (65-115) H 04/30/25 04:47 Estimat Average Glucose 128 04/26/25 09:41 Hemoglobin A1c 6.1 % (4.0-6.0) H 04/26/25 09:41 Calculated Osmolality 287 mOsm/kg (285-295) 04/30/25 04:47 Lactic Acid 2.2 mmol/L (0.5-2.2) 04/26/25 09:41 Lactic Acid (Sepsis) 0.8 mmol/L (0.5-2.2) 04/26/25 14:35 Uric Acid 2.7 mg/dL (3.4-7.0) L 04/27/25 05:35 Calcium 9.2 mg/dL (8.5-10.5) 04/30/25 04:47 Phosphorus 3.8 mg/dL (2.5-4.5) 04/27/25 05:35 Magnesium 1.7 mg/dL (1.7-2.3) 04/30/25 04:47 Iron 13 ug/dL (59-158) L 04/26/25 12:02 TIBC 112 mcg/dl 04/26/25 12:02 % Saturation 11.6 % (20-50) L 04/26/25 12:02 Unsat Iron Binding 99 ug/dL (112-347) L 04/26/25 12:02 Ferritin 985 ng/mL (30-400) H 04/26/25 12:02 Total Bilirubin 0.4 mg/dL (0.15-1.2) 04/29/25 03:37 AST 41 U/L (0-40) H 04/29/25 03:37 ALT 38 U/L (0-41) 04/29/25 03:37 Alkaline Phosphatase 291 U/L (40-130) H 04/29/25 03:37 Lactate Dehydrogenase 196 U/L (135-225) 04/27/25 05:35 Troponin T Baseline 48 ng/L (0-15) H 04/26/25 09:41 Troponin T 120 Minute 39.79 ng/L (0-15) H 04/26/25 12:02 Delta Troponin T -8.21 ABS# (0-10) L 04/26/25 12:02 Troponin T Hi Sens 6Hr 37.11 ng/L (0-15) H 04/26/25 15:38 Troponin T Hi Sens 6Hr Delta -10.89 ng/L (0-12) L 04/26/25 15:38 C-Reactive Protein 234.8 mg/L (0.0-4.9) H 04/26/25 09:41 NT-Pro-B Natriuret Pep 886 pg/mL (0-450) H 04/26/25 09:41 Total Protein 6.5 g/dL (6.6-8.7) L 04/29/25 03:37 Albumin 2.9 g/dL (3.5-5.2) L 04/29/25 03:37 Globulin 3.6 g/dL (1.3-4.6) 04/29/25 03:37 Procalcitonin 0.38 ng/mL (0-0.5) 04/26/25 12:02 TSH 1.19 uIU/mL (0.27-4.20) 04/26/25 12:02 Urine Color Dark yellow (Yellow) A 04/26/25 11:04 Urine Appearance Clear (CLEAR) 04/26/25 11:04 Urine pH 6.5 (5-7) 04/26/25 11:04 Ur Specific [place] 1.016 (1.005-1.030) 04/26/25 11:04 Urine Protein Trace (Negative) A 04/26/25 11:04 Urine Glucose (UA) Negative (Normal) 04/26/25 11:04 Urine Ketones 1+ (Negative) H 04/26/25 11:04 Urine Blood Negative (Negative) 04/26/25 11:04 Urine Nitrate Negative (Negative) 04/26/25 11:04 Urine Bilirubin Negative (Negative) 04/26/25 11:04 Urine Urobilinogen >=8.0 mg/dL (Negative) H 04/26/25 11:04 Ur Leukocyte Esterase Negative (Negative) 04/26/25 11:04 Urine RBC 0-2 /hpf (0-2) 04/26/25 11:04 Urine WBC 0-5 /hpf (0-5) 04/26/25 11:04 Ur Squamous Epith Cells 0-5 /hpf (0-5) 04/26/25 11:04 Calcium Oxalate Crystal 0-4 /hpf H 04/26/25 11:04 Amorphous Sediment Not Reportable 04/26/25 11:04 Urine Bacteria None seen /hpf (NONE) 04/26/25 11:04 Hyaline Casts 3.71 /lpf 04/26/25 11:04 Vancomycin Trough 19.4 ug/mL (10-15) H 04/30/25 04:47 Lymphoma Panel Cancelled 04/27/25 05:35 BCR/abl Source 04/27/25 14:49 BCR/abl Prior Result Blood 04/27/25 14:49 BCR/abl (p190) Result Not detected 04/27/25 14:49 BCR/abl Interpretation See note 04/27/25 14:49 BCR/abl1 to abl1 % 0.000 (0.000) 04/27/25 14:49 BCR/abl1 IS % 0.000 (0.000) 04/27/25 14:49 BCR/abl1 Mjr (p210) Res Not detected 04/27/25 14:49 Blood Type A Positive 04/26/25 10:23 Rho(D) Type Rh positive 04/26/25 10:23 Antibody Screen Negative 04/26/25 10:23 Crossmatch See Detail 04/26/25 10:23 Other data: Echocardiogram from yesterday Normal left ventricular size and systolic function, EF 71%. Abnormal septal motion consistent with conduction abnormality. Mildly increased right ventricular size. Normal right ventricular systolic function. Mildly increased right atrial size. Rounded echolucent structure in the right atrial area possibly outside the atrium, only visualized in the subcostal view. Mildly dilated left atrium . Mild mitral valve regurgitation. Thickened aortic valve. Mild eccentric tricuspid regurgitation. Estimated pulmonary artery peak systolic pressure 57 mmHg- moderate pulmonary hypertension Possible round structure outside the right atrium, consider lung lesion No obvious intracardiac masses. There is no pericardial effusion. No similar previous studies are available for comparison A&P Assessment and plan 1. Atrial fibrillation with rapid ventricular response: Patient is currently on Betapace 80 mg p.o. twice daily. Heart rate is under control. Because of the bradycardia, diltiazem was discontinued. Will do a repeat EKG before next dose of Betapace 2. Metastasis to brain: Has not had a recurrence of seizures. No neurological deficits at this point. 3. Anemia, unspecified type: Possibly from the metastatic CA. Workup is in progress 4. Sepsis, due to unspecified organism, unspecified whether acute organ dysfunction present: Workup and management as per the primary. Patient is remaining afebrile. He is on empiric antibiotics. 5. Lung mass: Possibly the primary tumor. Patient seems to be interested in further workup even though he refused it two years ago. Plan: The echocardiogram revealed normal LV ejection fraction. Will continue on the Betapace. Repeat EKG today before the next dose of Betapace Continue on the other current measures Based on the clinical progress, further management decisions will be made PDMP PDMP Reviewed: Not Reviewed Attestations Medical Necessity Statement*: Patient requires continued hospital stay for close monitoring and further management Coding Level of Care Code 09385 Diagnoses Atrial fibrillation with rapid ventricular response I48.91 Metastasis to brain C79.31 Anemia, unspecified type D64.9 Anemia type: unspecified type Sepsis, due to unspecified organism, unspecified whether acute organ dysfunction present A41.9 Sepsis acute organ dysfunction status: unspecified Sepsis type: sepsis due to unspecified organism Lung mass R91.8
--- NOTE | 2025-04-30 15:41 | PC.NURSE ---
Danyelle from [facility] called for an update. Update is given and patient is placed on the medical floor waiting list. Danyelle did say this could be 5 to 7 days.
--- NOTE | 2025-04-30 16:50 | PM.PN ---
Subjective Subjective: Patient verbalized that he is very too weak to live at home by himself and plans to go to custodial when he is done with hospitalization Medications: Medication Review Details: Current Medications Acetaminophen (Acetaminophen 325 Mg Tablet) 650 mg PO Q6H PRN PRN Reason: Mild/Mod Pain Or Temp >/= 101 Aspirin (Aspirin 81 Mg Ec Tablet) 81 mg PO DAILY [facility] Last Admin: 04/30/25 08:50 Dose: 81 mg Atorvastatin Calcium (Atorvastatin 40 Mg Tablet) 20 mg PO DAILY [facility] Last Admin: 04/30/25 08:50 Dose: 20 mg Dexamethasone (Dexamethasone 4 Mg Tablet) 6 mg PO DAILY [facility] Stop: 05/01/25 21:01 Last Admin: 04/30/25 08:51 Dose: 6 mg Dorzolamide HCl (Dorzolamide 2% Op Soln 10 Ml Btl) 1 drop EYE-BOTH BID [facility] Last Admin: 04/30/25 08:53 Dose: 1 drop Heparin Sodium (Porcine) (Heparin 5,000 Unit/Ml Inj 1 Ml) 5,000 unit SUBCUT Q12H [facility] On Hold: 04/27/25 15:20 Last Admin: 04/27/25 14:20 Dose: 5,000 unit Piperacillin Sod/Tazobactam (Sod 3.375 gm/ Sodium Chloride) 50 mls @ 12.5 mls/hr IV Q8H [facility] Last Infusion: 04/30/25 09:05 Dose: Infused Vancomycin HCl (Vancocin) 1,250 mg in 250 mls @ 200 mls/hr IV Q12H [facility] Last Infusion: 04/30/25 09:05 Dose: Infused Levalbuterol HCl (Levalbuterol 0.63 Mg/3 Ml Neb) 0.63 mg INHALATION Q6H.RESP [facility] Last Admin: 04/30/25 07:57 Dose: 0.63 mg Levetiracetam (Levetiracetam 500 Mg/5 Ml Udc) 500 mg PO BID [facility] Last Admin: 04/30/25 08:51 Dose: 500 mg Multivitamins Therapeutic (Multivitamin Therapeutic Tablet) 1 tab PO DAILY [facility] Last Admin: 04/30/25 08:51 Dose: 1 tab Ondansetron HCl (Ondansetron 2 Mg/Ml Sdv 2 Ml) 4 mg IVP Q8H PRN PRN Reason: vomiting, or N/V if npo Pantoprazole Sodium (Pantoprazole Dr 40 Mg Tablet) 40 mg PO DAILY [facility] Last Admin: 04/30/25 08:51 Dose: 40 mg Sotalol HCl (Sotalol 80 Mg Tablet) 80 mg PO BID@0900,2100 [facility] Last Admin: 04/30/25 08:50 Dose: 80 mg Vitals/I&O/Wt Last Vital Signs Temp 97.9 F 04/30/25 16:00 Pulse 82 04/30/25 16:00 Resp 15 04/30/25 16:00 BP 135/72 04/30/25 16:00 Pulse Ox 97 04/30/25 16:00 O2 Del Method Nasal Cannula 04/30/25 13:51 O2 Flow Rate 4 04/30/25 13:51 04/30/25 04/30/25 04/30/25 06:59 14:59 22:59 Intake Total 900 / 900 50 / 950 Output Total 850 / 2250 1075 / 1075 75 / 1150 Balance -850 / -1170 -175 / -175 -25 / -200 Weight last 48 hrs Weight 74.117 kg Weight 74.253 kg Physical Exam Narrative: General the patient is very debilitated and weak lying in bed with no energy HEENT normocephalic atraumatic neck neck is supple cardiovascular heart is regular lungs are pretty much clear abdomen soft nontender nondistended unremarkable extremities intact no edema has good pulses neurology he has no focality patient is not confused pretty much alert awake and oriented. Data 04/30/25 04:47 04/30/25 04:47 A&P Assessment and plan 1. Atrial fibrillation with rapid ventricular response: Because of intermittent sinus rhythm/atrial flutter Continue on Betapace, metoprolol. Cardiology on case and patient with atrial fibrillation with RVR and with brain mets, anticoagulation held 2. Metastasis to brain: Continue steroid because of brain mets No change in mental status, no seizures and no neurological deficits at this point. 3. Anemia, unspecified type: This is anemia of chronic disease secondary to neoplastic process 4. Lung mass: primary tumor. The patient wants further diagnostic workup regarding elevated white count. Patient has a port and has outpatient oncology and will call for possible bone marrow biopsy for other entities - Such as CLL and CML all outpatient workup I had called [facility], they could not take the patient because they do not do CLL or CML Workups I called [facility] as had been referred and directed by [facility] they would not take the patient because he felt patient can be worked up as an outpatient by on oncologist Patient is being managed outpatient on this Plan: GI and DVT prophylaxis in place At this point we will plan for rehab placement for patient debility and supportive care PDMP PDMP Reviewed: Not Reviewed Attestations Medical Necessity Statement*: Patient with much elevated white count measures to transfer to other hospitals for workup and this had boil done to patient woke up we will watch patient overnight if no other events patient will be discharged to the care of of patient oncology while having a destination to custodial facility or rehab facility for his debility optimization must continue to treat and optimize Coding Level of Care Code 71983 Diagnoses Atrial fibrillation with rapid ventricular response I48.91 Metastasis to brain C79.31 Anemia, unspecified type D64.9 Anemia type: unspecified type Lung mass R91.8 Time Spent (min) 60 Comment I have spent time discussed with [facility] and [facility]
--- NOTE | 2025-04-30 17:45 | ECG_ITS ---
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 Measurements Intervals [place] Rate: 82 P: 244 NC: 166 QRS: -36 QRSD: 137 T: 29 QT: 445 QTc: 522 Interpretive Statements possible atrial flutter LEFT AXIS DEVIATION [QRS AXIS < -30] RIGHT BUNDLE BRANCH BLOCK [120+ ms QRS DURATION, UPRIGHT V1, 40+ ms S IN I/aVL/V4/V5/V6] Compared to ECG 04/30/2025 07:54:10 Atrial flutter no longer present Ventricular premature complex(es) no longer present Aberrant conduction of supraventricular beat(s) no longer present T-wave abnormality no longer present Possible ischemia no longer present Electronically Signed On 04-30-2025 18:37:52 CDT by Waldo Mendez M.D. [email or web address]
[2025-05-01] VITALS (7 sets, daily range): BP systolic 135–166; BP diastolic 75–99; PULSE 82–85; RESP 13–24; TEMP 36.6–37; O2SAT 95–97
[2025-05-01] MEDS: piperacillin-tazobactam 3.375 GM in sodium chloride 0.9% (plus) 50 ML IV ×2 (00:59→10:43)
[2025-05-01 05:16] LABS: Hematocrit 28.5 % (37-53); Hemoglobin 8.80 g/dL (11.27-16.99); Mean Corpuscular HGB Conc 30.9 g/dL (30-55); Mean Corpuscular Hemoglobin 25.1 pg (27-33); Mean Corpuscular Volume 81.4 fl (82-101); Nucleated Red Blood Cells % 0 %; Platelet Count 562 10^3/cmm (157-399); Red Blood Count 3.50 10^6/uL (3.85-5.65)
[2025-05-01 05:35] LABS: Alanine Aminotransferase 46 U/L (0-41); Albumin Level 2.9 g/dL (3.5-5.2); Alkaline Phosphatase 261 U/L (40-130); Anion Gap 15.4 (5-19); Aspartate Amino Transferase 28 U/L (0-40); Blood Urea Nitrogen 19 mg/dL (8-23); Calcium 9.3 mg/dL (8.5-10.5); Carbon Dioxide 27 mmol/L (22-29); Chloride 104 mmol/L (98-107); Creatinine Clr Calc Pharmacy 82.7558; Globulin 3.5 g/dL (1.3-4.6); Glucose 85 mg/dL (65-115); Osmolality Calculated 296 mOsm/kg (285-295); Potassium 4.4 mmol/L (3.5-5.1); Sodium 142 mmol/L (136-145); Total Protein 6.4 g/dL (6.6-8.7)
[2025-05-01 05:54] LABS: White Blood Count 37.86 10^3/uL (3.29-11.43)
[2025-05-01 07:12] LABS: Leukemia Profile (BBPL) See Report
--- NOTE | 2025-05-01 07:19 | ECG_ITS ---
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 Measurements Intervals [place] Rate: 84 P: 0 LA: 0 QRS: -36 QRSD: 141 T: -1 QT: 367 QTc: 435 Interpretive Statements ATRIAL FLUTTER/TACHYCARDIA WITH ABERRANT CONDUCTION OR VENTRICULAR PREMATURE COMPLEXES LEFT AXIS DEVIATION [QRS AXIS < -30] RIGHT BUNDLE BRANCH BLOCK [120+ ms QRS DURATION, UPRIGHT V1, 40+ ms S IN I/aVL/V4/V5/V6] Compared to ECG 04/30/2025 17:45:46 Ventricular premature complex(es) now present Aberrant conduction of supraventricular beat(s) now present Electronically Signed On 05-01-2025 17:12:15 CDT by Waldo Mendez M.D. [email or web address]
--- NOTE | 2025-05-01 07:57 | PM.PN ---
Subjective Subjective: Patient continues to be in atrial flutter with a controlled ventricular response rate. The QTc from today is 435. So far he is tolerating the Betapace well Medications: Medication Review Details: Current Medications Acetaminophen (Acetaminophen 325 Mg Tablet) 650 mg PO Q6H PRN PRN Reason: Mild/Mod Pain Or Temp >/= 101 Aspirin (Aspirin 81 Mg Ec Tablet) 81 mg PO DAILY [facility] Last Admin: 04/30/25 08:50 Dose: 81 mg Atorvastatin Calcium (Atorvastatin 40 Mg Tablet) 20 mg PO DAILY [facility] Last Admin: 04/30/25 08:50 Dose: 20 mg Dexamethasone (Dexamethasone 4 Mg Tablet) 6 mg PO DAILY [facility] Stop: 05/01/25 21:01 Last Admin: 04/30/25 08:51 Dose: 6 mg Dorzolamide HCl (Dorzolamide 2% Op Soln 10 Ml Btl) 1 drop EYE-BOTH BID [facility] Last Admin: 04/30/25 17:24 Dose: 1 drop Heparin Sodium (Porcine) (Heparin 5,000 Unit/Ml Inj 1 Ml) 5,000 unit SUBCUT Q12H [facility] On Hold: 04/27/25 15:20 Last Admin: 04/27/25 14:20 Dose: 5,000 unit Piperacillin Sod/Tazobactam (Sod 3.375 gm/ Sodium Chloride) 50 mls @ 12.5 mls/hr IV Q8H [facility] Last Infusion: 05/01/25 05:03 Dose: Infused Vancomycin HCl (Vancocin) 1,250 mg in 250 mls @ 200 mls/hr IV Q12H [facility] Last Infusion: 05/01/25 07:27 Dose: Infused Levalbuterol HCl (Levalbuterol 0.63 Mg/3 Ml Neb) 0.63 mg INHALATION Q6H.RESP [facility] Last Admin: 05/01/25 07:22 Dose: 0.63 mg Levetiracetam (Levetiracetam 500 Mg/5 Ml Udc) 500 mg PO BID [facility] Last Admin: 04/30/25 17:24 Dose: 500 mg Multivitamins Therapeutic (Multivitamin Therapeutic Tablet) 1 tab PO DAILY [facility] Last Admin: 04/30/25 08:51 Dose: 1 tab Ondansetron HCl (Ondansetron 2 Mg/Ml Sdv 2 Ml) 4 mg IVP Q8H PRN PRN Reason: vomiting, or N/V if npo Pantoprazole Sodium (Pantoprazole Dr 40 Mg Tablet) 40 mg PO DAILY [facility] Last Admin: 04/30/25 08:51 Dose: 40 mg Sotalol HCl (Sotalol 80 Mg Tablet) 80 mg PO BID@0900,2100 [facility] Last Admin: 04/30/25 20:23 Dose: 80 mg Vitals/I&O/Wt Last Vital Signs Temp 97.8 F 05/01/25 03:53 Pulse 85 05/01/25 07:24 Resp 16 05/01/25 07:24 BP 135/99 05/01/25 03:53 Pulse Ox 95 05/01/25 07:24 O2 Del Method Nasal Cannula 05/01/25 07:24 O2 Flow Rate 4 05/01/25 07:24 04/30/25 05/01/25 05/01/25 22:59 06:59 14:59 Intake Total 1830 / 2730 50 / 2780 250 / 250 Output Total 500 / 1575 850 / 2425 Balance 1330 / 1155 -800 / 355 250 / 250 Weight last 48 hrs Weight 160 lb 6.4 oz Weight 163 lb 6.4 oz Physical Exam Narrative: GENERAL: The patient is alert and oriented times three. Not in any acute distress. HEENT: No significant pallor, icterus or lymphadenopathy.Oral cavity: There are no mucous membrane lesions. NECK: Trachea appears to be central. No masses noted. No JVD or thyromegaly appreciated. RESPIRATORY: Chest is symmetrical. No intercostals muscle retraction or any accessory muscle activation. He has some vague chest wall tenderness. Breath sounds are heard bilaterally. No rales or rhonchi heard. No evidence of any consolidation. BREASTS: Deferred. HEART: The heart sounds are normal. No S3 or S4. No significant murmurs. No pericardial rub ABDOMEN: No vessel pulsations or distention. No tenderness. No organomegaly appreciated. Bowel sounds are normally heard. : Deferred. RECTAL: Deferred. LYMPHATIC: No lymphadenopathy noted in the neck. EXTREMITIES: No edema or cyanosis. No clubbing. MUSCULOSKELETAL: No acute joint deformities or swelling SKIN: There are no significant rashes or ecchymosis NEUROPSYCHIATRIC: The patient is alert and oriented x3. Appears to be in a good mood. No tremors or rigidity noted. Data 05/01/25 05:03 05/01/25 05:03 A&P Assessment and plan 1. Atrial fibrillation with rapid ventricular response: Patient may continue on the Betapace at this time. 2. Metastasis to brain: Has not had a recurrence of seizures. No neurological deficits at this point. Patient was somewhat undecided about further workup for the metastatic cancer. Today he is telling me that he does not want to go for any invasive procedures, if it is not going to cure his condition 3. Anemia, unspecified type: Possibly from the metastatic CA. Workup is in progress 4. Sepsis, due to unspecified organism, unspecified whether acute organ dysfunction present: Patient continues to remain stable and afebrile. May continue on the current management. Management as per the primary 5. Lung mass: Possibly the primary tumor. Patient seems to have second thoughts about his lung cancer workup. He expresses desire not to undergo any invasive procedures. Plan: Patient may continue on the current medication for the time being. If he is going to be discharged home, please make an appointment to see in the clinic in 2 weeks. PDMP PDMP Reviewed: Not Reviewed Attestations Medical Necessity Statement*: Possible discharge home today Coding Level of Care Code Acute Code for Chg Fwd Diagnoses Atrial fibrillation with rapid ventricular response I48.91 Metastasis to brain C79.31 Anemia, unspecified type D64.9 Anemia type: unspecified type Sepsis, due to unspecified organism, unspecified whether acute organ dysfunction present A41.9 Sepsis acute organ dysfunction status: unspecified Sepsis type: sepsis due to unspecified organism Lung mass R91.8
--- NOTE | 2025-05-01 08:05 | PC.SOCIAL ---
IMM Update Pg. 2 of IMM updated and reviewed with patient, who verbalized understanding. Copy provided.
[2025-05-01] MEDS: multivitamin therapeutic Tablet 1 TAB PO (08:28)
[2025-05-01] MEDS: dorzolamide 2% Op Soln 10 mL Btl 1 DROP EYE-BOTH (08:29)
--- NOTE | 2025-05-01 15:52 | P.DS_ITS ---
Discharge Providers Date of Admission: 04/26/25 14:30 Date of Discharge: May 01, 2025 Attending Provider at Admission: Rizwana Kevin MD Attending Provider at Discharge: Lata Kebede MD Primary Care Provider: Britt Ward Diagnoses at Discharge Discharge Diagnosis 1. Atrial fibrillation with rapid ventricular response: 2. Metastasis to brain: 3. Anemia, unspecified type: 4. Sepsis, due to unspecified organism, unspecified whether acute organ dysfunction present: 5. Lung mass: Reason for Visit Reason for Visit: weakness Hospital Course Hospital Course Miguel Castillo is a 75 year old male with past medical history of lung mass patient not wanting any further workup, hypertension, hyperlipidemia, COPD presented to the hospital with worsening weakness. He said that he did not even get up from his walker anymore and does not feel stable. He is requesting to go to a nursing facility. He also made a comment to the ER doctor stating I am ready to meet the Lord. He denies fever cough, chest pain, shortness of breath. No facial droop. In the ER EKG showed possible A-fib versus atrial tachycardia per ER physician note. Chest x-ray showed increasing size of right upper lobe lung mass. CT of the head showed left inferior frontal lobe likely metastatic disease with moderate surrounding edema. CT chest of abdomen pelvis showed large spiculated neoplasm in right upper lobe. There is right upper thoracic intramuscular paraspinal mass. Labs showed leukocytosis 27,000 with left shift. Anemia with hemoglobin of 7.6. Urinalysis within normal limits not suggestive of infection. Patient was reseen in the ER by ER physician and patient had a brief seizure. He was mildly postictal afterwards. Once recovered goals of care discussion was done by ER doctor to which patient stated that he wanted to be a DNR. Patient stable on his home oxygen. Patient has been on it for last 7 to 8 years. He does have evidence of brain metastasis. He was given normal saline bolus 2 L, broad-spectrum antibiotics were initiated Zyvox meropenem. Lactic acid was ordered, blood cultures were ordered. IV Keppra was given IV Ativan was given for possible seizures. IV Decadron given for brain edema tomorrow. Hospitalist was requested to admit the patient. Patient seen in room 277 on medical surgical floor. He is laying in bed appearing comfortable. States he cannot take care of himself at home and would like to go to a nursing facility. He states he just could not breathe. Denies coughing or bringing up any sputum. Denies fever or shortness of breath chest pain, abdominal pain, diarrhea, nausea, vomiting. He states he has family in town however they do not get along. I asked if wanted to get his family involved in his care and he said no. He takes Trelegy at home. Sees Britt at [facility] in [place]. Patient would like to go to retirement at this time. Had a goals of care discussion with him. He would like to be DNR/DNI. I discussed with him if he wanted to have any chemotherapy for his medical condition and he said no. I told him that the mass in the lung could very well be cancer and it has metastasized with a lesion in his brain. There could be other lesions as well. He states when his time to go its time to go. I asked him if he wanted any chemotherapy or bronchoscopy or any biopsies or further workup for this lung mass and he said no. I then asked him if he wanted to pursue hospice and go to a nursing facility. He stated that I cannot live alone at home I am unsafe to be at home alone. I cannot take care of myself anymore. I am weak I cannot walk. I then asked if he would like to go to a nursing facility with hospice. He said he will think about that at this point. Review of systems essentially negative. Does not complain of anything except stating my breathing was getting worse and worse and I could not get up and I felt weak. However when asked if he is experiencing shortness of breath upon exertion he answered no. He is chronically on 4 L nasal cannula. Also states he takes a water pill and does not follow with cardiology. Somewhat of a poor historian. Patient initially had wanted further investigation and today had made it clear that he does not want any further workup does not want anything to do with workup of the lung mass and its mets to the brain wants to just be let go and radiate to just go to sleep and while in the joint he wants to enjoy the rest of his life. He does not want any biopsy does not want any other thing but agrees to patient oncology that can be there for palliation of any care that he needs such as headache from the brain swelling because of mets patient has steroid will need to have somebody that will be knowledgeable to prescribe something like that. Prior to this patient had been independent and had lived in the home and provided his own self-care now he said he is tired he would like to go to retirement patient is being discharged at this time to retirement. FDC doctor can have patient see an outpatient oncologist just someone to be there for him in case of any further care for palliation. Physical Exam Narrative: Generally patient is doing okay and actually wanted to be discharged to retirement does only 1 any further workup regarding the cancer of the lung with mets to the brain and the spinal and paraspinal muscles Patient agrees to outpatient oncology that can be there for palliation in case he needs some steroid for the brain mets and which of course I have prescribed at this time of discharge but patient will need further prescription when needed HEENT normocephalic/atraumatic neck neck is supple cardiovascular heart rate is regular lungs are pretty much clear abdomen soft nontender nondistended unremarkable extremities intact no edema has good pulses neurology has no focality lab studies lab studies reviewed and noted. Patient is with fluid wave in the belly patient does have anasarca and ascites and does not want any further workup wants to enjoy the rest of his life in peace and [place] Discharge Data Studies Completed and Pending Completed Studies During Hospitalization Category Date Time Status CT chest abdomen pelvis [CT chest abdpel w/*[id number] Cat Scan 04/26/25 10:40 Completed ] Stat CT head wo con* [id number] Stat Cat Scan 04/26/25 10:40 Completed XR chest 1V portable [id number] Stat Exams 04/26/25 10:00 Completed NM bone scan whole body* [id number] Routine Nuc Med 04/28/25 13:55 Completed CV. echo complete* [id number] Routine Ultrasound 04/29/25 14:21 Completed Pending at discharge Category Date Time Status Occult Blood Stool [Immunochemical Fecal OCB] Routine Lab 04/26/25 19:02 Uncollected Sputum Culture and Gram Stain Stat Lab 04/26/25 14:44 Uncollected Radiology Impressions Chest X-Ray 04/26/25 10:00 IMPRESSION: Presumed primary carcinoma of the right lung which has increased significantly in size compared to the previous examination of 08/22/2024. No definite acute abnormality. Chest/Abdomen/Pelvis CT 04/26/25 10:40 IMPRESSION: 1. Large spiculated neoplasm in the RIGHT upper lobe described above. 2. RIGHT upper thoracic intramuscular paraspinal mass described above. 3. RIGHT hilar and peribronchial lymphadenopathy. 4. Eccentric nodular thickening of the distal thoracic esophagus. Finding suspicious for neoplasm. This can be followed up with endoscopy. 5. No evidence of metastatic disease in the abdomen or pelvis. 6. Moderate chronic central canal stenosis L3-4 and severe L4-5 due to chronic disc osteophyte complexes facet arthropathy and ligamentum flavum hypertrophy. Head CT 04/26/25 10:40 IMPRESSION: 1. Small increased attenuation intraparenchymal lesion LEFT inferior frontal lobe most compatible with metastatic disease with moderate surrounding edema. Consider MRI without and with gadolinium enhancement in further assessment and to evaluate for additional lesions 2. Sphenoid sinusitis Notified Cony Chance MD at 04/26/2025 11:34 AM. Bone Scan Nuclear Medicine 04/28/25 13:55 IMPRESSION: See discussion above Laboratory Results WBC 37.86 10^3/uL (3.29-11.43) H* 05/01/25 05:03 RBC 3.50 10^6/uL (3.85-5.65) L 05/01/25 05:03 Hgb 8.80 g/dL (11.27-16.99) L 05/01/25 05:03 Hct 28.5 % (37-53) L 05/01/25 05:03 MCV 81.4 fl (82-101) L 05/01/25 05:03 MCH 25.1 pg (27-33) L 05/01/25 05:03 MCHC 30.9 g/dL (30-55) 05/01/25 05:03 RDW 18.8 % (12.1-15.1) H 05/01/25 05:03 Plt Count 562 10^3/cmm (157-399) H 05/01/25 05:03 MPV 9.5 fL (7.4-10.4) 05/01/25 05:03 Neut % (Auto) 89.3 % 05/01/25 05:03 Lymph % (Auto) 4.1 % 05/01/25 05:03 [place] % (Auto) 4.6 % 05/01/25 05:03 Eos % (Auto) 0.0 % 05/01/25 05:03 Baso % (Auto) 0.2 % 05/01/25 05:03 Neut # (Auto) 33.79 10^3/uL (1.8-7.7) H 05/01/25 05:03 Lymph # (Auto) 1.6 10^3/uL (0.8-4.8) 05/01/25 05:03 [place] # (Auto) 1.7 10^3/uL (0.2-0.9) H 05/01/25 05:03 Eos # (Auto) 0.0 10^3/uL (0.0-0.8) 05/01/25 05:03 Baso # (Auto) 0.1 10^3/uL (0.0-0.1) 05/01/25 05:03 Nucleated RBC % (auto) 0 % 05/01/25 05:03 Nucleated RBCs # 0.0 /100WBC 05/01/25 05:03 Peripher Smr Path Cons Sent for review 04/27/25 05:35 PT 17.90 SECONDS (12.1-14.9) H 04/28/25 08:18 INR 1.38 (0.8-1.2) H 04/28/25 08:18 D-Dimer 1.31 ug/mLFEU (0-0.59) H 04/26/25 09:41 Specimen Type Arterial 04/26/25 10:04 Sample Site Brachial, left 04/26/25 10:04 ABG pH 7.51 (7.35-7.45) H 04/26/25 10:04 ABG pCO2 34.1 mmHg (35-45) L 04/26/25 10:04 ABG pO2 80.3 mmHg (80.0-100.0) 04/26/25 10:04 ABG HCO3 26.9 mmol/L (22-26) H 04/26/25 10:04 ABG O2 Saturation 97.3 04/26/25 10:04 ABG Base Excess 3.6 mmol/L (-2.0-2.0) H 04/26/25 10:04 Abad Test Pos 04/26/25 10:04 A-a O2 Gradient 3.4 mmHg (5-10) L 04/26/25 10:04 Hematocrit 21.6 % (42-52) L 04/26/25 10:04 Hgb O2 Saturation 96.2 % (95-100) 04/26/25 10:04 Carboxyhemoglobin 1.2 %THgb (0.4-20.1) 04/26/25 10:04 Methemoglobin < 0.0 % (0.4-1.5) L 04/26/25 10:04 Total Hemoglobin 7.1 g/dL (14-18) L 04/26/25 10:04 Sodium 132.0 mmol/L (131-143) 04/26/25 10:04 Potassium 3.6 mmol/L (3.5-5.0) 04/26/25 10:04 Glucose 124.0 mg/dL (70-115) H 04/26/25 10:04 Ionized Calcium 1.2 mmol/L (1.1-1.4) 04/26/25 10:04 O2 Delivery Device Nc 04/26/25 10:04 O2 Liters/Min 4.0 % 04/26/25 10:04 Runner Man ID [place] 04/26/25 10:04 Sodium 142 mmol/L (136-145) 05/01/25 05:03 Potassium 4.4 mmol/L (3.5-5.1) 05/01/25 05:03 Chloride 104 mmol/L (98-107) 05/01/25 05:03 Carbon Dioxide 27 mmol/L (22-29) 05/01/25 05:03 Anion Gap 15.4 (5-19) 05/01/25 05:03 BUN 19 mg/dL (8-23) 05/01/25 05:03 Creatinine 0.7 mg/dL (0.7-1.2) 05/01/25 05:03 GFR Calculation Not Reportable 05/01/25 05:03 Glucose 85 mg/dL (65-115) 05/01/25 05:03 Estimat Average Glucose 128 04/26/25 09:41 Hemoglobin A1c 6.1 % (4.0-6.0) H 04/26/25 09:41 Calculated Osmolality 296 mOsm/kg (285-295) H 05/01/25 05:03 Lactic Acid 2.2 mmol/L (0.5-2.2) 04/26/25 09:41 Lactic Acid (Sepsis) 0.8 mmol/L (0.5-2.2) 04/26/25 14:35 Uric Acid 2.7 mg/dL (3.4-7.0) L 04/27/25 05:35 Calcium 9.3 mg/dL (8.5-10.5) 05/01/25 05:03 Phosphorus 3.8 mg/dL (2.5-4.5) 04/27/25 05:35 Magnesium 1.7 mg/dL (1.7-2.3) 04/30/25 04:47 Iron 13 ug/dL (59-158) L 04/26/25 12:02 TIBC 112 mcg/dl 04/26/25 12:02 % Saturation 11.6 % (20-50) L 04/26/25 12:02 Unsat Iron Binding 99 ug/dL (112-347) L 04/26/25 12:02 Ferritin 985 ng/mL (30-400) H 04/26/25 12:02 Total Bilirubin 0.5 mg/dL (0.15-1.2) 05/01/25 05:03 AST 28 U/L (0-40) 05/01/25 05:03 ALT 46 U/L (0-41) H 05/01/25 05:03 Alkaline Phosphatase 261 U/L (40-130) H 05/01/25 05:03 Lactate Dehydrogenase 196 U/L (135-225) 04/27/25 05:35 Troponin T Baseline 48 ng/L (0-15) H 04/26/25 09:41 Troponin T 120 Minute 39.79 ng/L (0-15) H 04/26/25 12:02 Delta Troponin T -8.21 ABS# (0-10) L 04/26/25 12:02 Troponin T Hi Sens 6Hr 37.11 ng/L (0-15) H 04/26/25 15:38 Troponin T Hi Sens 6Hr Delta -10.89 ng/L (0-12) L 04/26/25 15:38 C-Reactive Protein 234.8 mg/L (0.0-4.9) H 04/26/25 09:41 NT-Pro-B Natriuret Pep 886 pg/mL (0-450) H 04/26/25 09:41 Total Protein 6.4 g/dL (6.6-8.7) L 05/01/25 05:03 Albumin 2.9 g/dL (3.5-5.2) L 05/01/25 05:03 Globulin 3.5 g/dL (1.3-4.6) 05/01/25 05:03 Procalcitonin 0.38 ng/mL (0-0.5) 04/26/25 12:02 TSH 1.19 uIU/mL (0.27-4.20) 04/26/25 12:02 Urine Color Dark yellow (Yellow) A 04/26/25 11:04 Urine Appearance Clear (CLEAR) 04/26/25 11:04 Urine pH 6.5 (5-7) 04/26/25 11:04 Ur Specific [place] 1.016 (1.005-1.030) 04/26/25 11:04 Urine Protein Trace (Negative) A 04/26/25 11:04 Urine Glucose (UA) Negative (Normal) 04/26/25 11:04 Urine Ketones 1+ (Negative) H 04/26/25 11:04 Urine Blood Negative (Negative) 04/26/25 11:04 Urine Nitrate Negative (Negative) 04/26/25 11:04 Urine Bilirubin Negative (Negative) 04/26/25 11:04 Urine Urobilinogen >=8.0 mg/dL (Negative) H 04/26/25 11:04 Ur Leukocyte Esterase Negative (Negative) 04/26/25 11:04 Urine RBC 0-2 /hpf (0-2) 04/26/25 11:04 Urine WBC 0-5 /hpf (0-5) 04/26/25 11:04 Ur Squamous Epith Cells 0-5 /hpf (0-5) 04/26/25 11:04 Calcium Oxalate Crystal 0-4 /hpf H 04/26/25 11:04 Amorphous Sediment Not Reportable 04/26/25 11:04 Urine Bacteria None seen /hpf (NONE) 04/26/25 11:04 Hyaline Casts 3.71 /lpf 04/26/25 11:04 Vancomycin Trough 19.4 ug/mL (10-15) H 04/30/25 04:47 Lymphoma Panel Cancelled 04/27/25 05:35 Immunophenotype Interp See report 04/27/25 05:35 BCR/abl Source 04/27/25 14:49 BCR/abl Prior Result Blood 04/27/25 14:49 BCR/abl (p190) Result Not detected 04/27/25 14:49 BCR/abl Interpretation See note 04/27/25 14:49 BCR/abl1 to abl1 % 0.000 (0.000) 04/27/25 14:49 BCR/abl1 IS % 0.000 (0.000) 04/27/25 14:49 BCR/abl1 Mjr (p210) Res Not detected 04/27/25 14:49 Blood Type A Positive 04/26/25 10:23 Rho(D) Type Rh positive 04/26/25 10:23 Antibody Screen Negative 04/26/25 10:23 Crossmatch See Detail 04/26/25 10:23 Vitals Last Vital Signs Temp 98.0 F 05/01/25 12:00 Pulse 85 05/01/25 14:00 Resp 16 05/01/25 14:00 BP 137/75 05/01/25 12:00 Pulse Ox 95 05/01/25 14:00 O2 Del Method Nasal Cannula 05/01/25 14:00 O2 Flow Rate 4 05/01/25 14:00 Discharge Plan Discharge Patient Disposition: Xfer SNF Condition: Stable Prescriptions: New dorzolamide 2 % Drops 1 drp eye-both BID Qty: 30 0RF levetiracetam 500 mg/5 mL (5 mL) Solution 500 mg PO BID Qty: 200 0RF aspirin 81 mg Tablet,Delayed Release (Dr/Ec) 81 mg PO DAILY Qty: 30 0RF sotalol 80 mg Tablet 80 mg PO BID@0900,2100 Qty: 60 0RF spironolactone 25 mg/5 mL suspension 25 mg PO DAILY Qty: 118 0RF multivitamin with folic acid [Thera] 400 mcg Tablet 1 tab PO DAILY Qty: 30 0RF dexamethasone 4 mg Tablet 6 mg PO DAILY Qty: 30 0RF levalbuterol HCl 0.63 mg/3 mL Solution For Nebulization 0.63 mg inhalation Q6H.RESP Qty: 90 0RF Continued clonidine HCl 0.1 mg tablet 0.1 mg PO DAILY acetaminophen [Tylenol] 325 mg Tablet 650 mg PO QID PRN (Reason: Fever Or Pain) lisinopril 20 mg tablet 20 mg PO DAILY lovastatin 40 mg tablet 40 mg PO DAILY amlodipine 10 mg tablet 10 mg PO DAILY naproxen sodium [Aleve] 220 mg Tablet 220 mg PO Q12H PRN (Reason: Pain) omeprazole 20 mg capsule,delayed release(DR/EC) 40 mg PO DAILY furosemide 20 mg tablet 20 mg PO DAILY loratadine 10 mg tablet 10 mg PO DAILY PRN (Reason: allergies) dorzolamide 2 % drops 1 drp ophthalmic (eye) BID Trelegy Ellipta 100-62.5-25 mcg blister with device 1 ea INHALATION DAILY One-A-Day Men's 50 Plus 400-370 mcg Tablet 1 tab PO DAILY Technical Staff Engineer OK for DC: Hematolgy/Oncology and Family Medicine Discharge Order = DC NOW: Discharge Order (Routine); Ordered 05/01/25 Ordered By: Lata Kebede Referrals: [facility] [Outside] Britt Ward, WIRELESS NETWORK ENGINEER [Primary Care Provider, Nurse Practitioner] Discharge Diet: Cardiac Discharge Activity: Resume usual activity and As per PT/OT instructions Patient Instructions: Spironolactone (By mouth), Dorzolamide (Into the eye), Sotalol (By mouth) (Betapace, Betapace AF, Sorine, Sotylize), Levalbuterol (By breathing) (Xopenex, Xopenex HFA, Xopenex Pediatric), Dexamethasone (By mouth), Levetiracetam (By mouth) (Keppra, Keppra XR, Spritam, Elepsia XR), A-fib (Atrial Fibrillation) (DC), Sepsis (DC), Brain Metastasis (DC), Opioid Safety, Patient Portal & Jesus Instructions Discharge Attestations Time Spent in Discharge Care*: less than 30 min Time Spent in Smoking Cessation: 3 to 10 minutes Quality Metrics Clinical Quality Measures [ No reported AMI, CVA or VTE this stay] Coding Level of Care Code 45967 Diagnoses Atrial fibrillation with rapid ventricular response I48.91 Metastasis to brain C79.31 Anemia, unspecified type D64.9 Anemia type: unspecified type Sepsis, due to unspecified organism, unspecified whether acute organ dysfunction present A41.9 Sepsis acute organ dysfunction status: unspecified Sepsis type: sepsis due to unspecified organism Lung mass R91.8 Time Spent (min) 30
--- NOTE | 2025-05-01 16:09 | PC.NURSE ---
Report called to MICHELLE Sanchez at [facility] at 1610. [facility] is providing transportation.
== END 2025-05-01 17:00 | disposition skilled nursing facility (03) | DRG 871 ==
LOC: ER 12:50 → MEDSURG 14:30 → CSU 04-27 13:24
PROVIDERS: Admitting Provider Internal Medicine; Emergency Provider Emergency Medicine; PCP Nurse Practitioner Family; Visit Provider Internal Medicine
DX: A41.9 Sepsis, unspecified organism (principal); J18.9 Pneumonia, unspecified organism; J44.0 Chronic obstructive pulmonary disease with (acute) lower respiratory infection; C34.11 Malignant neoplasm of upper lobe, right bronchus or lung; C79.31 Secondary malignant neoplasm of brain; C79.51 Secondary malignant neoplasm of bone; I50.30 Unspecified diastolic (congestive) heart failure; R18.8 Other ascites; I48.92 Unspecified atrial flutter; I48.91 Unspecified atrial fibrillation; D50.9 Iron deficiency anemia, unspecified; I11.0 Hypertensive heart disease with heart failure; E78.5 Hyperlipidemia, unspecified; Z66 Do not resuscitate; R56.9 Unspecified convulsions; D75.839 Thrombocytosis, unspecified; F10.21 Alcohol dependence, in remission; Z99.81 Dependence on supplemental oxygen; Z79.51 Long term (current) use of inhaled steroids; Z87.891 Personal history of nicotine dependence
CPT/HCPCS: 36415; 36430; 36600; 70450; 71045; 71260; 74177; 78306; 80048; 80051; 80053; 80202; 80503; 81001; 81206; 81207; 82330; 82728; 82805; 83036; 83540; 83550; 83605; 83615; 83735; 83880; 84100; 84145; 84443; 84484; 84550; 85025; 85378; 85610; 86140; 86850; 86900; 86920; 87040; 88184; 88185; 93005; 93306; 94640; 96365; 96367; 96372; 96375; 97110; 97161; 97167; 97530; 97535; 99285; 99291; A9561; J0282; J1100; J1644; J1953; J2020; J2060; J2185; J2543; J3372; J3373; J3475; J3490; J7030; J7040; J7614; J8540; J9999; P9016